=== PATIENT | male | born 1940 | race Caucasian/White ===

== ENCOUNTER 2019-05-30 13:49 | Inpatient (IN) | payer MEDICARE, BC ==
[2019-05-30 15:12] LABS: Bilirubin Negative (Negative); Blood, Urine 1+ (Negative); Calcium Oxalate Crystals 4+ HPF (None Seen); Clarity Turbid (Clear); Glucose, Urine (Dipstick) Normal (Negative); Leukocyte 250 Leu/uL (Negative); Nitrite Negative (Negative); Protein, Urine (Dipstick) 30 mg/dL (Neg-Trace); Squamous Epithelial 0-3 HPF (0-3); Urobilinogen Normal mg/dL (Less than 2)
[2019-05-30 15:13] LABS: #Basophils 0.1 thou/uL (0.0-0.2); #Eosinphils 0.2 thou/uL (0.0-0.7); #Lymphocytes 0.4 thou/uL (1.20-3.40); #Monocytes 0.7 thou/uL (0.11-0.59); #Neutrophils 5.6 thou/uL (1.40-6.50); %Basophils 0.9 % (0.0-1.0); %Eosinophils 2.4 % (0.0-10.0); %Lymphocytes 6.2 % (21.0-51.0); %Monocytes 10.3 % (0.0-10.0); %Neutrophils 80.2 % (42.0-75.0); Hemoglobin 13.4 g/dL (14.0-18.0); Mean Corpuscular HGB CONC 34.4 g/dL (32.0-36.0); Mean Corpuscular Hemoglobin 29.4 pg (27.0-31.0); Mean Corpuscular Volume 85.5 fL (78.0-98.0); Mean Platelet Volume 7.5 fL (7.4-10.4); Platelet Count 214 thou/uL (130-400); RBC Distribution Width 12.5 % (11.5-14.5); Red Blood Cell (RBC) Count 4.55 mill/uL (4.70-6.10)
[2019-05-30 15:23] LABS: Bacteria/HPF None Seen HPF (None Seen); RBC/HPF 0-3 HPF (0-3)
[2019-05-30 15:29] LABS: AST (SGOT) 36 U/L (5-34); Anion Gap 13 mmol/L (10-20); Bilirubin, Total 1.8 mg/dL (0.2-1.2); Carbon Dioxide 33 mmol/L (23-31); Chloride 97 mmol/L (98-107); Protein, Total 7.2 g/dL (5.8-8.1); Sodium 140 mmol/L (136-145)
[2019-05-30 15:39] LABS: ALT (SGPT) 24 U/L (8-55); Albumin 3.7 g/dL (3.4-4.8); Alkaline Phosphatase 64 U/L (40-110); BUN (Urea Nitrogen) 48 mg/dL (8.4-25.7); Calc. Creatinine Clearance 0 mL/min (70-130); Estimated GFR-MDRD 21; Globulin 3.6 g/dL (2.4-3.5); Glucose 92 mg/dL (83-110)
[2019-05-30 15:46] LABS: Calcium 16.8 mg/dL (7.8-10.44); Potassium 2.5 mmol/L (3.5-5.1)
--- NOTE | 2019-05-30 18:00 | ULT ---
Focused ultrasound of the neck: 05/30/2019 COMPARISON: None HISTORY: Bilateral areas of palpable concern within the neck FINDINGS: Within the right aspect of the neck in the area of palpable concern there is an enlarged ly mph node measuring 1.3 x 1.9 cm. Numerous additional enlarged lymph nodes are seen in this region. In addition, in the "right lateral neck area of concern" there is an ill-defined lobulated soft tissu e mass measuring up to approximately 2.0 x 4.3 cm. This may represent confluent lymphadenopathy or a primary tumor. On the left there are numerous enlarged lymph nodes as well, measuring up to 1.2 cm in short axis dimension. IMPRESSION: Findings suspicious for extensive neck lymphadenopathy, right greater than left. This is suspicious for malignancy, which could be related to head and neck cancer or lymphoma. Follow-up neck CT with IV contrast advised for full assessment. CODE T
--- NOTE | 2019-05-30 18:28 | RAD ---
EXAM: Chest one view: HISTORY: Weight loss COMPARISON: None FINDINGS: Heart size: Within normal limits. Lungs: Clear of acute process. No evidence for confluent pneumonia, pleural effusion, acute edema, or pneumothorax, or other signifi cant acute process. IMPRESSION: No significant acute intrathoracic disease. Atherosclerosis of the aorta.
[2019-05-30] MEDS ORDERED: Acetaminophen 325 MG TAB PO PRN ×2 (19:34→20:55)
[2019-05-30] MEDS ORDERED: Sodium Chloride 0.9% 1,000 ML IV SCH (19:34)
[2019-05-30] MEDS ORDERED: hydrALAZINE 20 MG/ML VIAL SLOW IVP PRN (20:55)
[2019-05-30] MEDS: Sodium Chloride 0.9% 1,000 ML IV SCH (21:39)
[2019-05-30] MEDS: Famotidine 20 MG TAB PO SCH (22:00)
[2019-05-30] MEDS: Heparin 5,000 UNITS/ML VIAL SC SCH (22:09)
[2019-05-30] MEDS ORDERED: Potassium Chloride 20 MEQ TAB PO SCH (23:00)
[2019-05-31 00:14] LABS: Anion Gap 11 mmol/L (10-20); Carbon Dioxide 30 mmol/L (23-31); Chloride 102 mmol/L (98-107); Magnesium 1.2 mg/dL (1.6-2.6); Sodium 140 mmol/L (136-145)
[2019-05-31 00:22] LABS: Potassium 2.8 mmol/L (3.5-5.1)
--- NOTE | 2019-05-31 00:32 | HP ---
PRIMARY CARE PHYSICIAN: Stiven Dave MD. CHIEF COMPLAINT: Nodules or lymph nodes on the neck as well as elevated calcium and hypokalemia. HISTORY OF PRESENT ILLNESS: Mr. Boyd is a very pleasant 79-year-old gentleman, who has history of hypertension and hypercholesterolemia. He has noticed over the last few weeks that he has had some lumps in his neck, which seem to be getting progressively worse. He also has had poor appetite and he believes he has lost about 25 pounds. He has had an occasional sore throat and notices some hoarseness. He also feels dizzy upon standing off and on and sometimes his legs get weak. His primary care doctor was planning to send him for a CT scan of the neck and when he had come to have the CT scan done, they ordered lab work and noticed that his potassium was low. His got calcium was elevated at 16.8 and as a result, they recommended he go back to his doctor. He called his physician who told him to come to the ER for evaluation. Other than feeling a bit weak, he has no other complaints. REVIEW OF SYSTEMS: All systems were reviewed and are negative except for that mentioned in the history of present illness. PAST MEDICAL HISTORY: Significant for hypertension, hypercholesterolemia, borderline diabetes mellitus. PAST SURGICAL HISTORY: He has had a cholecystectomy and also surgery on his pancreas. ALLERGIES: NO KNOWN DRUG ALLERGIES. SOCIAL HISTORY: He is a former smoker. Denies any alcohol use. FAMILY HISTORY: Significant for heart disease in his brother. CURRENT MEDICATIONS: He is not sure of the names and doses of his medications. PHYSICAL EXAMINATION: GENERAL: He is alert and oriented. He appears to be in no acute distress. VITAL SIGNS: Blood pressure is 137/67, heart rate 71, respiratory rate of 16, and he is afebrile. HEENT: Pupils are equal, round, and reactive to light. Extraocular muscles are intact. His sclerae anicteric. THROAT: There is no erythema, no exudates. NECK: He has adenopathy in the cervical and submandibular area, which are fairly firm, but there is no fluctuance. LUNGS: Clear to auscultation. There is no wheezing. No rales, no rhonchi. CARDIOVASCULAR: He has a normal S1 and S2. There is no S3 or S4. He does have a grade 2/6 systolic murmur, which is heard over his entire precordium and radiates both to the axilla and to the back. ABDOMEN: Soft. It is nontender and nondistended. Positive for bowel sounds. No rebound, no guarding. EXTREMITIES: There is no clubbing, cyanosis, no edema. NEUROLOGICAL: The exam is nonfocal. He had reflexes, which were 2+ and symmetric in patellar and brachioradialis. SKIN AND INTEGUMENT: No skin changes. No rash. LABORATORY DATA: Sodium is 140, potassium 2.5, chloride is 97, CO2 is 33, BUN of 48, creatinine 2.95, glucose is 92, calcium was 16.8, total bilirubin was 1.8. CBC; the white blood cell count is 7, hemoglobin 13.4, hematocrit is 38.9, and platelet count is 214. Urinalysis the pH is 5, there is 1+ blood, 250 leukocyte esterase and wbcs are 7-10. He had a soft tissue ultrasound showing extensive neck lymphadenopathy. The right more than the left, suspicious for malignancy. ASSESSMENT: This is a 79-year-old gentleman, who presents to the emergency room with hypercalcemia and hypokalemia and what appears to be acute kidney injury. The hypercalcemia is suspicious for malignancy. He will be admitted, started on IV hydration for the elevated calcium and we will repeat the level in the a.m. I suspect that he may require a bisphosphonate in order to correct this calcium. Currently, he is asymptomatic with the exception of fatigue and poor appetite with regard to the hypercalcemia. There is no somnolence, etc. 1. Lymphadenopathy. These are readily palpable and I suspect it should be easy to biopsy. Therefore, we will consult either general surgery or ENT to perform a biopsy to facilitate the diagnosis. 2. Hypokalemia. We will replace the potassium and check a magnesium level as it has not already been checked. We will also for the hypercalcemia check a PTH related peptide and he will be placed on deep venous thrombosis and gastrointestinal prophylaxis. Job ID: [id number]
[2019-05-31] MEDS: Sodium Chloride 0.9% 1,000 ML IV SCH ×3 (01:55→21:33)
[2019-05-31 03:59] LABS: #Eosinphils 0.2 thou/uL (0.0-0.7); #Lymphocytes 0.6 thou/uL (1.20-3.40); #Monocytes 0.6 thou/uL (0.11-0.59); #Neutrophils 4.1 thou/uL (1.40-6.50); %Basophils 0.6 % (0.0-1.0); %Eosinophils 4.3 % (0.0-10.0); %Monocytes 11.3 % (0.0-10.0); %Neutrophils 72.8 % (42.0-75.0); Hemoglobin 12.5 g/dL (14.0-18.0); Mean Corpuscular HGB CONC 35.1 g/dL (32.0-36.0); Mean Corpuscular Hemoglobin 30.1 pg (27.0-31.0); Mean Corpuscular Volume 85.7 fL (78.0-98.0); Mean Platelet Volume 7.9 fL (7.4-10.4); Platelet Count 169 thou/uL (130-400); RBC Distribution Width 12.4 % (11.5-14.5); Red Blood Cell (RBC) Count 4.15 mill/uL (4.70-6.10); White Blood Cell (WBC) Count 5.6 thou/uL (4.8-10.8)
[2019-05-31 04:16] LABS: Anion Gap 12 mmol/L (10-20); BUN (Urea Nitrogen) 42 mg/dL (8.4-25.7); Calc. Creatinine Clearance 29 mL/min (70-130); Carbon Dioxide 25 mmol/L (23-31); Chloride 105 mmol/L (98-107); Estimated GFR-MDRD 26; Glucose 73 mg/dL (83-110); Magnesium 1.5 mg/dL (1.6-2.6); Sodium 139 mmol/L (136-145)
[2019-05-31 04:19] LABS: Calcium 15.2 mg/dL (7.8-10.44); Potassium 2.7 mmol/L (3.5-5.1)
[2019-05-31] MEDS ORDERED: Zoledronic Acid 4 MG in Sodium Chloride 0.9% 100 ML IVPB SCH (08:45)
[2019-05-31] MEDS ORDERED: Potassium Chloride 20 MEQ TAB PO SCH ×2 (09:00→21:00)
--- NOTE | 2019-05-31 10:59 | CON ---
DATE OF CONSULTATION: 05/31/2019 REQUESTING PHYSICIAN: Esau Marshall MD HISTORY OF PRESENT ILLNESS: This is a 79-year-old man, who was admitted with complaint of progressive weakness and 25 pounds weight loss over the last 3 -4 months. He reports some anorexia. The patient denies any dyspnea, chest pain or syncope. He admits to having multiple lumps in his neck, which had become progressively larger over the last few weeks. He denies any change in his bowel habits. PAST MEDICAL HISTORY: Pertinent for hyperlipidemia and type 2 diabetes mellitus. PAST SURGICAL HISTORY: Pertinent for cholecystectomy as well as some surgery to his pancreas, he does not recall specifics. SOCIAL HISTORY: He reports over a 25 pack year cigarette smoking history and currently does not smoke. He denies any ethanol or illicit drug abuse. FAMILY HISTORY: Noncontributory for this patient's age. ALLERGIES: THE PATIENT DENIES ANY KNOWN DRUG ALLERGIES. REVIEW OF SYSTEMS: Ten-point review of systems essentially unremarkable except as stated in past medical history and chief complaint. PHYSICAL EXAMINATION: GENERAL: This reveals a 79-year-old normally developed man, who is otherwise coherent, interactive and appears stated age. The patient is alert and oriented x3, appears to be in no acute distress at the time of my evaluation. VITAL SIGNS: Include blood pressure 152/70, pulse 63, respiratory rate is 18, temperature is 98.7 degrees Fahrenheit, and oxygen saturation is 95% on room air. HEENT: Pupils are equal, round, and reactive to light and accommodation. NECK: He has multiple bilateral palpable cervical lymphadenopathy. Trachea is otherwise midline. He has no tenderness to any of these palpable lymph nodes. He does not have any thyromegaly. HEART: Reveals regular rate and rhythm. No murmurs or gallops auscultated. LUNGS: Clear to auscultation bilaterally. Breathing, regular and nonlabored. ABDOMEN: Soft and obese, but nontender to palpation. Liver and spleen nonpalpable below costal margin. EXTREMITIES: 2+ bilateral radial and pedal pulses, no ankle edema. Bilateral left greater than right inguinal lymphadenopathy. NEUROLOGIC: Reveals no focal deficits present. LABORATORY FINDINGS: Include a CBC with 5600 white blood cells, hemoglobin and hematocrit 12.5 and 35.5 respectively. Platelet count 169,000. Metabolic profile; sodium 139, potassium 2.7, chloride is 105, bicarb is 25, BUN 42, creatinine is 2.44, glucose is 73, total bilirubin is 1.5, serum calcium is elevated at 16.8. PTH is noted at 39.2 mcg per mL. I have personally reviewed the chest x-ray obtained yesterday, which was unremarkable for any acute intrathoracic pathology. Soft tissue ultrasound of the neck was remarkable for bilateral [id number]-left lymphadenopathy. IMPRESSIONS: 1. Extensive cervical lymphadenopathy, likely secondary to malignancy. 2. Acute hypocalcemia likely secondary to malignancy. 3. Acute hypokalemia. 4. Probable stage 3 kidney disease. RECOMMENDATION: Excisional left inguinal lymph node biopsy Above findings and plan discussed with the patient who indicates understanding of the information given. Thank you again, Dr. Marshall for allowing me the opportunity to participate in the care of this patient. Job ID: [id number] MTDD
[2019-05-31] MEDS ORDERED: Zoledronic Acid 3 MG in Sodium Chloride 0.9% 100 ML IVPB SCH (11:00)
--- NOTE | 2019-05-31 11:28 | PDOC.HOSPP ---
- Subjective Encounter Date: 05/31/19 Encounter Time: 11:27 Subjective: Mr. Boyd was seen today in follow-up of hypercalemia and hypokalemia. He does not have any complaints today. He denies feeling weak. - Objective Vital Signs & Weight: Vital Signs (12 hours) Temp Pulse Resp BP Pulse Ox 05/31/19 08:25 95 05/31/19 08:18 98.7 F 63 18 152/70 H 95 05/31/19 03:00 98.4 F 70 16 145/67 H 95 05/30/19 23:45 97.8 F 73 18 152/68 H 93 L Weight Weight 181 lb I&O: 05/30/19 05/31/19 06/01/19 06:59 06:59 06:59 Intake Total 2040 Output Total 950 Balance 1090 Result Diagrams: 05/31/19 03:21 05/31/19 03:21 Additional Labs: Accuchecks 05/31/19 05/30/19 05:27 21:42 POC Glucose 76 89 Hospitalist ROS - Medication Medications: Active Medications Generic Name Dose Route Start Last Admin Trade Name Freq PRN Reason Stop Dose Admin Heparin Sodium (Porcine) 5,000 units 05/30/19 21:00 05/30/19 22:09 Heparin SC 5,000 units TID DANE Administration Sodium Chloride 1,000 mls @ 150 mls/hr 05/30/19 21:00 05/31/19 01:55 Normal Saline 0.9% IV 1,000 mls .Q6H40M DANE Administration - Exam Eye: PERRL Heart: RRR, no murmur, no gallops, no rubs, normal peripheral pulses Respiratory: CTAB, no wheezes, no rales, no ronchi, normal chest expansion Gastrointestinal: soft, non-tender, non-distended, normal bowel sounds Extremities: no cyanosis, no edema Hosp A/P (1) Hypercalcemia Code(s): E83.52 - HYPERCALCEMIA Status: Acute (2) Hypokalemia Code(s): E87.6 - HYPOKALEMIA Status: Acute (3) Acute kidney injury Code(s): N17.9 - ACUTE KIDNEY FAILURE, UNSPECIFIED Status: Acute (4) Hypomagnesemia Code(s): E83.42 - HYPOMAGNESEMIA Status: Acute (5) Lymphadenopathy Code(s): R59.1 - GENERALIZED ENLARGED LYMPH NODES Status: Acute - Plan * Lymphadenopathy- Consult has been placed for an excisional biopsy * Hypercalcemia- will continue IV hydration, and will give a dose of Zoledronate * Hypokalemia- continue to replace * Hypomagnesemia- continue to replace * Acute kidney injury-this has not improved much after hydration- will check a renal ultrasound, and check urine electrolyes and creatinine, and consult Nephrology *
[2019-05-31] MEDS: Magnesium Oxide 400 MG TAB PO SCH ×2 (11:47→21:31)
--- NOTE | 2019-05-31 12:06 | CON ---
DATE OF CONSULTATION: REASON FOR CONSULTATION: Lymphadenopathy. HISTORY OF PRESENT ILLNESS: Mr. Boyd is a pleasant 79-year-old gentleman, who over the last 3 to 4 weeks, has noticed lumps in his neck. He has lost 25 pounds secondary to poor appetite. He has had occasional sore throat, but no dysphagia. He followed up with Dr. Dave, his primary care and a CT scan was ordered. Routine lab prior to the scan showed a calcium of 16.8. He was sent to the emergency room for treatment and further workup. The patient was started on IV fluids. A dose of zoledronic acid has been ordered. The patient states he has occasional night sweats. No itching. On exam, he has a large firm axillary lymph nodes, he states those have been present for at least 6 months. PAST MEDICAL HISTORY: 1. Hypertension. 2. Hyperlipidemia. 3. Diabetes mellitus, type 2. PAST SURGICAL HISTORY: Cholecystectomy. ALLERGIES: NO KNOWN DRUG ALLERGIES. HOME MEDICATIONS: None. FAMILY HISTORY: Father had heart disease. Mother had liver cancer. SOCIAL HISTORY: Single. One child. Lives near his son and brother. Remote history of smoking. No alcohol or illicit drug use. REVIEW OF SYSTEMS: CONSTITUTIONAL: Denies fever, but positive for chills and night sweats. EYES: No blurred or double vision. ENT: No pain or dysphagia. Positive for sore throat and hoarseness. NECK: Positive for lumps. CV: No chest pain, palpitations, or syncope. RESPIRATORY: No shortness of breath, dyspnea on exertion, orthopnea. GI: No nausea, vomiting, diarrhea, constipation, or abdominal pain. : No dysuria or hematuria. MUSCULOSKELETAL: No joint or back pain. SKIN: Denies any rash or pruritus. HEMATOLOGIC: Denies bleeding, bruising, or clotting. NEUROLOGIC: Positive for weakness. No headache, numbness, tingling, or seizure activity. PSYCHIATRIC: No anxiety or depression. PHYSICAL EXAMINATION: VITAL SIGNS: Temperature is 98.7, pulse is 63, respiratory rate is 18, blood pressure is 152/70. He is 95% on room air. GENERAL: This is a well-developed, well-nourished male, in no acute distress. HEENT: Normocephalic, atraumatic. Pupils are equal and reactive to light. He has poor dentition. NECK: He has palpable cervical and submandibular lymph nodes. CV: Regular rate and rhythm. LUNGS: Clear. ABDOMEN: Soft and nontender. Bowel sounds are positive. EXTREMITIES: There is no clubbing or cyanosis. SKIN: No rash. LYMPH: He has bulky lymphadenopathy in bilateral axillae. He has soft inguinal lymph node lymphadenopathy bilaterally. NEUROLOGIC: Nonfocal. PERTINENT LABORATORY AND DIAGNOSTIC DATA: Current WBCs are 5.6, hemoglobin 12.5 , hematocrit 35.5, platelet count is 169,000, he has 72% neutrophils, 11% lymphocytes. Sodium is 139, potassium is 2.7, chloride is 105, CO2 is 25, BUN is 42, creatinine is 2.44, current calcium is 15.2, magnesium is 1.5, bilirubin is 1.8, AST is 36 , ALT is 24, and alkaline phosphatase is 64. Serum total protein is 7.2, albumin 3.7, globulin 3.6. PTH is 39.2. Urine is positive for protein, trace blood and ketones and leukocyte esterase. ASSESSMENT: 1. Bulky lymphadenopathy in neck, axilla, and inguinal region, worrisome for lymphoma. 2. Hypercalcemia, likely secondary to malignancy. DISCUSSION: The patient has been started on IV fluids with slight improvement in his calcium. He will be given a dose of zoledronic acid and started on calcitonin. He likely has a lymphoma as he has bulky lymphadenopathy and B symptoms, we would recommend an excisional lymph node biopsy. Dr. Jasso has been consulted, and I have discussed this with him. We will check LDH, uric acid, and flow cytometry on peripheral blood. Based on these results, he may need a bone marrow biopsy. He also needs CT scan of chest, abdomen, pelvis with IV contrast. Hopefully, his kidney function will improve. He will have a bulky disease on both sides of the diaphragm and will likely need treatment with allopurinol or rasburicase prior to initiation of chemo. This has been briefly discussed with the patient, and I will return to discuss with the son and brother possibly tomorrow. Thank you for the consult. Job ID: [id number] [facility]
[2019-05-31 13:08] LABS: Anion Gap 12 mmol/L (10-20); BUN (Urea Nitrogen) 40 mg/dL (8.4-25.7); Calc. Creatinine Clearance 31 mL/min (70-130); Carbon Dioxide 28 mmol/L (23-31); Chloride 106 mmol/L (98-107); Estimated GFR-MDRD 28; Glucose 75 mg/dL (83-110); Sodium 143 mmol/L (136-145)
[2019-05-31 13:11] LABS: Calcium 14.8 mg/dL (7.8-10.44); Potassium 2.7 mmol/L (3.5-5.1)
[2019-05-31 14:06] LABS: Creatinine, Urine 57.68 mg/dL (63-166)
[2019-05-31] MEDS: Calcitonin,Salmon,Synthetic 200 UNITS/ML SC SCH (14:09)
[2019-05-31] MEDS: Famotidine 20 MG TAB PO SCH (14:12)
[2019-05-31] MEDS: Heparin 5,000 UNITS/ML VIAL SC SCH ×3 (14:13→21:34)
[2019-05-31 14:51] LABS: Reference Lab Name LABCORP
[2019-05-31 19:16] LABS: Anion Gap 13 mmol/L (10-20); BUN (Urea Nitrogen) 37 mg/dL (8.4-25.7); Calc. Creatinine Clearance 33 mL/min (70-130); Carbon Dioxide 24 mmol/L (23-31); Chloride 107 mmol/L (98-107); Estimated GFR-MDRD 29; Glucose 112 mg/dL (83-110); Sodium 141 mmol/L (136-145)
[2019-05-31 19:19] LABS: Calcium 14.7 mg/dL (7.8-10.44); Potassium 2.7 mmol/L (3.5-5.1)
--- NOTE | 2019-05-31 19:31 | CON ---
DATE OF CONSULTATION: REASON FOR CONSULTATION: Acute kidney injury. HISTORY OF PRESENT ILLNESS: A very pleasant 79-year-old gentleman, presented to the hospital yesterday for hypercalcemia and possible lymphoma. The patient also had severe hypokalemia. The patient has been hydrated and was started on zoledronate for hypercalcemia. The patient denies any nausea, vomiting, or chest pain. PAST MEDICAL HISTORY: Significant for hypertension, hyperlipidemia, diabetes mellitus, history of cholecystectomy, and pancreas. ALLERGIES: REVIEWED. MEDICATIONS: Home medications list, reviewed. Hospital medications list, reviewed. SOCIAL HISTORY: No smoking, alcohol, or drug use. FAMILY HISTORY: Negative for ESRD. REVIEW OF SYSTEMS: A 15-point review of systems was performed and was negative except for positives noted above. GENERAL: HEAD: NECK: No swelling or lumps. NOSE: No epistaxis or discharge. EYES: No diplopia or pain. RESPIRATORY: CARDIOVASCULAR: GASTROINTESTINAL: /WATERSHED TENDER: MUSCULOSKELETAL: No joint pain. NEUROPSYCHIATIC SYSTEMS: No suicidal ideation. No ideation. SKIN: Denies any rash or ulcer. CONSTITUTIONAL: No fever or chills. PHYSICAL EXAMINATION: GENERAL: The patient is awake and alert. VITAL SIGNS: Afebrile, pulse 74, breathing 16, blood pressure 145/67. GENERAL APPEARANCE AND MENTAL STATUS: Fair. HEAD/NECK: Normocephalic. Atraumatic. EYES: EOMI. No deformity. EARS: Clear. No ulcers. NOSE: Intact. No lesions. MOUTH: Clear. No discharge. THROAT: Clear. No exudate. LUNGS: Clear. No crackles. CARDIAC: S1, S2. No rub. ABDOMEN: Benign. Bowel sounds positive. GENITALIA/RECTUM: Ram absent. BACK/EXTREMITIES: Edema 0+. NEUROLOGICAL: Alert and motor intact. SKIN: LYMPHATICS: LABORATORY DATA: Reviewed. ASSESSMENT AND PLAN: 1. Acute kidney injury with chronic kidney disease, most likely because of hypercalcemia and hypokalemia. Recommend aggressive potassium replacement and check potassium every 4 hours. 2. Hypercalcemia, slightly improved. 3. Hyperuricemia. Recommend starting allopurinol. 4. Hyperparathyroidism. Recommend starting Sensipar. 5. Hypomagnesemia. Recommend aggressive magnesium replacement. Job ID: [id number]
[2019-05-31 19:40] LABS: Phosphorus 1.8 mg/dL (2.3-4.7)
[2019-05-31] MEDS ORDERED: Magnesium 2 GM/50 ML 2 GM in Premix Bag 1 BAG IVPB SCH (21:00)
[2019-06-01] MEDS: Calcitonin,Salmon,Synthetic 200 UNITS/ML SC SCH ×4 (01:08→21:04)
[2019-06-01] MEDS: Sodium Chloride 0.9% 1,000 ML IV SCH ×2 (03:25→19:46)
[2019-06-01 04:46] LABS: #Eosinphils 0.2 thou/uL (0.0-0.7); #Lymphocytes 0.3 thou/uL (1.20-3.40); #Monocytes 0.6 thou/uL (0.11-0.59); #Neutrophils 4.9 thou/uL (1.40-6.50); %Basophils 0.6 % (0.0-1.0); %Eosinophils 3.7 % (0.0-10.0); %Lymphocytes 5.5 % (21.0-51.0); %Monocytes 9.3 % (0.0-10.0); %Neutrophils 80.9 % (42.0-75.0); Hemoglobin 11.3 g/dL (14.0-18.0); Mean Corpuscular HGB CONC 34.3 g/dL (32.0-36.0); Mean Corpuscular Hemoglobin 29.3 pg (27.0-31.0); Mean Corpuscular Volume 85.4 fL (78.0-98.0); Mean Platelet Volume 7.5 fL (7.4-10.4); Platelet Count 159 thou/uL (130-400); RBC Distribution Width 12.4 % (11.5-14.5); Red Blood Cell (RBC) Count 3.84 mill/uL (4.70-6.10)
[2019-06-01 05:06] LABS: Anion Gap 9 mmol/L (10-20); BUN (Urea Nitrogen) 34 mg/dL (8.4-25.7); Calc. Creatinine Clearance 34 mL/min (70-130); Carbon Dioxide 30 mmol/L (23-31); Chloride 108 mmol/L (98-107); Estimated GFR-MDRD 30; Glucose 100 mg/dL (83-110); Magnesium 1.7 mg/dL (1.6-2.6); Sodium 144 mmol/L (136-145)
[2019-06-01 05:17] LABS: Potassium 2.5 mmol/L (3.5-5.1)
[2019-06-01] MEDS ORDERED: Potassium Chloride 20 MEQ TAB PO SCH (05:45)
--- NOTE | 2019-06-01 10:19 | PDOC.HOSPP ---
- Subjective Encounter Date: 06/01/19 Encounter Time: 10:18 Subjective: Mr. Boyd was seen today in follow-up of hypercalcemia, and lymphadenopathy. He says he feels fine today. No new complaints. - Objective Vital Signs & Weight: Vital Signs (12 hours) Temp Pulse Resp BP Pulse Ox 06/01/19 07:58 97.8 F 94 18 139/76 95 06/01/19 05:43 96 06/01/19 03:31 98.4 F 68 18 171/81 H 96 05/31/19 23:25 97.8 F 66 18 122/73 97 Weight Admit Weight 179 lb 3.2 oz Weight 179 lb I&O: 05/31/19 06/01/19 06/02/19 06:59 06:59 06:59 Intake Total 2040 3880 Output Total 950 1060 Balance 1090 2820 Result Diagrams: 06/01/19 03:52 06/01/19 03:52 Hospitalist ROS - Medication Medications: Active Medications Generic Name Dose Route Start Last Admin Trade Name Sunilq PRN Reason Stop Dose Admin Calcitonin [place] 100 units 05/31/19 13:00 06/01/19 01:08 [place] SC 06/03/19 01:01 100 unit 0100,1300 DANE Administration Heparin Sodium (Porcine) 5,000 units 05/30/19 21:00 05/31/19 21:34 Heparin SC 5,000 units TID DANE Administration Sodium Chloride 1,000 mls @ 150 mls/hr 05/30/19 21:00 06/01/19 03:25 Normal Saline 0.9% IV 1,000 mls .Q6H40M DANE Administration Magnesium Oxide 400 mg 05/31/19 09:00 05/31/19 21:31 Magnesium Oxide PO 400 mg BID DANE Administration - Exam Eye: PERRL Respiratory: CTAB, no wheezes, no rales, no ronchi, normal chest expansion, no tachypnea, normal percussion Gastrointestinal: soft, non-tender, non-distended, normal bowel sounds, no palpable masses, no hepatomegaly Extremities: no cyanosis, no edema Musculoskeletal: no muscle wasting (+ submandibular, axiallary and ingunal adenopathy) Psychiatric: normal affect, A&O x 3 Hosp A/P (1) Hypercalcemia Code(s): E83.52 - HYPERCALCEMIA Status: Acute (2) Hypokalemia Code(s): E87.6 - HYPOKALEMIA Status: Acute (3) Acute kidney injury Code(s): N17.9 - ACUTE KIDNEY FAILURE, UNSPECIFIED Status: Acute (4) Hypomagnesemia Code(s): E83.42 - HYPOMAGNESEMIA Status: Acute (5) Lymphadenopathy Code(s): R59.1 - GENERALIZED ENLARGED LYMPH NODES Status: Acute (6) Hyperparathyroidism Code(s): E21.3 - HYPERPARATHYROIDISM, UNSPECIFIED Status: Acute - Plan * Lymphadenopathy- concern is for lymphoma- he will go for sxcisional biopsy today * Hypercalcemia from hyperparathyroidism, and probable malignancy-improving- will continue Calcitonin, and IV hydration- PTHrP pending * Hypokalemia- continue to replace * Hypomagnesemia- continue to replace * Acute kidney injury-slight improvement- Nephrology input appreciated - continue to correct electrolytes, and hydration * HTN- blood pressure is stable- continue PRN hydralazine
[2019-06-01] MEDS: Potassium Chloride 20 MEQ TAB PO SCH ×3 (11:04→20:41)
[2019-06-01] MEDS: Famotidine 20 MG TAB PO SCH (11:04)
[2019-06-01] MEDS: Heparin 5,000 UNITS/ML VIAL SC SCH ×3 (11:05→20:41)
[2019-06-01] MEDS: Magnesium Oxide 400 MG TAB PO SCH ×2 (11:05→20:41)
[2019-06-01] MEDS ORDERED: Lidocaine 1% PF 5 ML VIAL ONE (11:06)
[2019-06-01] MEDS ORDERED: PROPOFOL 200 MG/20 ML VIAL ONE (11:06)
[2019-06-01] MEDS ORDERED: Dexamethasone 20 MG/5 ML VIAL ONE (11:06)
[2019-06-01] MEDS ORDERED: Ondansetron PF 4 MG/2 ML Vial ONE (11:06)
[2019-06-01 12:01] LABS: Anion Gap 9 mmol/L (10-20); BUN (Urea Nitrogen) 32 mg/dL (8.4-25.7); Calc. Creatinine Clearance 33 mL/min (70-130); Carbon Dioxide 30 mmol/L (23-31); Chloride 110 mmol/L (98-107); Estimated GFR-MDRD 30; Glucose 102 mg/dL (83-110); Sodium 146 mmol/L (136-145)
[2019-06-01 12:03] LABS: Calcium 14.1 mg/dL (7.8-10.44); Phosphorus 1.5 mg/dL (2.3-4.7); Potassium 2.9 mmol/L (3.5-5.1)
[2019-06-01] MEDS ORDERED: Cinacalcet HCl 30 MG TAB PO SCH (12:15)
[2019-06-01] MEDS ORDERED: Allopurinol 100 MG TAB PO SCH (12:15)
--- NOTE | 2019-06-01 13:31 | PRG ---
DATE OF SERVICE: 06/01/2019 SUBJECTIVE: This 79-year-old gentleman being seen for acute kidney injury. The patient denied nausea, vomiting or chest pain. OBJECTIVE: CONSTITUTIONAL: The patient is awake and alert. VITAL SIGNS: Pulse 94, breathing 16, blood pressure 139/76. GENERAL APPEARANCE AND MENTAL STATUS: Fair. HEAD/NECK: Normocephalic. Atraumatic. EYES: EOMI. No deformity. EARS: Clear. No ulcers. NOSE: Intact. No lesions. MOUTH: Clear. No discharge. THROAT: Clear. No exudate. LUNGS: Clear. No crackles. CARDIAC: S1, S2. No rub. ABDOMEN: Benign. Bowel sounds positive. GENITALIA/RECTUM: Ram absent. BACK/EXTREMITIES: Edema 0+. NEUROLOGICAL: Alert and motor intact. SKIN: LYMPHATICS: LABORATORY DATA: Labs show potassium 2.5, creatinine 2.1, calcium is 14, phosphorous is 1.8, magnesium 1.7. ASSESSMENT AND RECOMMENDATIONS: 1. Acute kidney injury with chronic kidney injury due to hypercalcemia and lymphoma. Continue aggressive hydration. 2. Hypokalemia. I would recommend central line with aggressive potassium replacement. Checking potassium every 4-6 hours. 3. Hypercalcemia, would recommend Sensipar. If the calcium does not improve, would recommend dialysis catheter placement and hemodialysis with the low calcium diet. 4. Hypophosphatemia. Would recommend aggressive phosphorus replacement. 5. Hypomagnesemia, resolved. Overall prognosis is poor. The above findings were discussed with the patient and his who was present during the interview and also with the Primary Team. Job ID: [id number]
[2019-06-01] MEDS ORDERED: Bupivacaine 0.25% HCL 30 ML VIAL ONE (16:36)
[2019-06-01] MEDS ORDERED: Lidocaine 1% w/Epinephrine 1:100K 20 ML VIAL ONE (16:36)
[2019-06-01] MEDS ORDERED: Fentanyl 100 MCG/2 ML VIAL ONE (16:49)
[2019-06-01] MEDS ORDERED: Heparin 10,000 UNITS/1 ML VIAL ONE (16:55)
[2019-06-01] MEDS ORDERED: Ondansetron HCl/PF 4 MG/2 ML Vial IVP PRN (17:16)
[2019-06-01] MEDS ORDERED: Promethazine HCl 25 MG/ML VIAL IM PRN (17:16)
[2019-06-01] MEDS ORDERED: Morphine Sulfate 2 MG/ML SYRINGE SLOW IVP PRN (17:16)
[2019-06-01] MEDS ORDERED: PACU-Morphine 4MG/ML VIAL SLOW IVP PRN (17:16)
[2019-06-01] MEDS ORDERED: HYDROmorphone 2 MG/ML VIAL SLOW IVP PRN (17:16)
[2019-06-01] MEDS ORDERED: Promethazine HCl 25 MG/ML VIAL SLOW IVP PRN (17:16)
[2019-06-01] MEDS ORDERED: PHOS-NAK 1 PKT PACK PO SCH (17:30)
[2019-06-01] MEDS ORDERED: Magnesium Sulfate 2 GM in Sodium Chloride 0.9% 100 ML IVPB SCH (17:45)
[2019-06-01] MEDS ORDERED: traMADol HCl 50 MG TAB PO PRN (17:47)
[2019-06-01] MEDS ORDERED: HYDROcodone/Acetaminophen 7.5/325 mg Tablet PO PRN (17:47)
[2019-06-01 21:43] LABS: Anion Gap 13 mmol/L (10-20); BUN (Urea Nitrogen) 31 mg/dL (8.4-25.7); Calc. Creatinine Clearance 30 mL/min (70-130); Carbon Dioxide 22 mmol/L (23-31); Chloride 112 mmol/L (98-107); Estimated GFR-MDRD 27; Glucose 146 mg/dL (83-110); Potassium 3.7 mmol/L (3.5-5.1); Sodium 143 mmol/L (136-145)
[2019-06-01 21:56] LABS: Calcium 12.7 mg/dL (7.8-10.44)
--- NOTE | 2019-06-02 00:08 | OP ---
DATE OF PROCEDURE: 06/01/2019 PREOPERATIVE DIAGNOSES: Diffuse lymphadenopathy, malignant hypercalcemia. POSTOPERATIVE DIAGNOSES: Diffuse lymphadenopathy, malignant hypercalcemia. PROCEDURES PERFORMED: 1. Left groin incisional biopsy of lymph nodes. 2. Right femoral Trialysis dialysis catheter. ANESTHESIA: General. ESTIMATED BLOOD LOSS: Minimal. COMPLICATIONS: None. SPECIMEN: Portion of large left groin node sent to Path for final diagnosis. It was sent fresh for lymph node protocol. DESCRIPTION OF PROCEDURE: The patient was taken to the operating room and laid supine on the operating room table. After general anesthetic was obtained, bilateral groins were shaved, prepped, and draped in a sterile fashion. An oblique incision was made above the lymphadenopathy in the left groin. Maryana fascia was opened to expose the groin. There was a large lymph node. It was locally invasive and so a portion of this lymph node was removed and sent to Path for final diagnosis. there was no ongoing bleeding. The wound was irrigated. Local anesthetic was applied and the wound was closed using 3-0 Vicryl, and 4-0 Monocryl, and Dermabond. Next, the right femoral vein was cannulated using a Seldinger needle and a wire was passed without any tension. A small gamal was made at the wire entrance site. The wire was used as a guide to dilate the femoral vein. The Trialysis catheter was threaded to its fullest extent. Both ports flushed and drawn blood without difficulty. Each was flushed with saline followed by 10,000 units of heparin per mL was left in each lumen. The catheter was sutured to the groin skin using nylon. Sterile dressings were applied. The patient was sent to Recovery in stable condition. Job ID: [id number]
[2019-06-02] MEDS: Sodium Chloride 0.9% 1,000 ML IV SCH ×2 (01:14→11:40)
[2019-06-02 04:44] LABS: #Lymphocytes 0.2 thou/uL (1.20-3.40); #Monocytes 0.3 thou/uL (0.11-0.59); #Neutrophils 6.4 thou/uL (1.40-6.50); %Basophils 0.4 % (0.0-1.0); %Eosinophils 0.2 % (0.0-10.0); %Lymphocytes 2.7 % (21.0-51.0); %Monocytes 4.7 % (0.0-10.0); Hemoglobin 10.5 g/dL (14.0-18.0); Mean Corpuscular HGB CONC 33.9 g/dL (32.0-36.0); Mean Corpuscular Hemoglobin 29.4 pg (27.0-31.0); Mean Corpuscular Volume 86.7 fL (78.0-98.0); Mean Platelet Volume 7.4 fL (7.4-10.4); Platelet Count 138 thou/uL (130-400); RBC Distribution Width 12.8 % (11.5-14.5); Red Blood Cell (RBC) Count 3.57 mill/uL (4.70-6.10)
[2019-06-02 04:58] LABS: Anion Gap 7 mmol/L (10-20); BUN (Urea Nitrogen) 30 mg/dL (8.4-25.7); Calc. Creatinine Clearance 36 mL/min (70-130); Carbon Dioxide 28 mmol/L (23-31); Chloride 112 mmol/L (98-107); Estimated GFR-MDRD 33; Glucose 141 mg/dL (83-110); Magnesium 1.5 mg/dL (1.6-2.6); Potassium 3.4 mmol/L (3.5-5.1); Sodium 144 mmol/L (136-145)
[2019-06-02 05:11] LABS: Calcium 12.2 mg/dL (7.8-10.44)
[2019-06-02] MEDS: Magnesium Oxide 400 MG TAB PO SCH ×2 (08:26→20:35)
[2019-06-02] MEDS: Cinacalcet HCl 30 MG TAB PO SCH (08:26)
[2019-06-02] MEDS: Potassium Chloride 20 MEQ TAB PO SCH (08:26)
[2019-06-02] MEDS: Allopurinol 100 MG TAB PO SCH (08:26)
[2019-06-02] MEDS: Heparin 5,000 UNITS/ML VIAL SC SCH ×3 (08:26→20:35)
[2019-06-02] MEDS: Famotidine 20 MG TAB PO SCH (08:27)
[2019-06-02] MEDS: Calcitonin,Salmon,Synthetic 200 UNITS/ML SC SCH ×2 (11:37→20:26)
--- NOTE | 2019-06-02 11:51 | PDOC.MOPN ---
Interval History: he thinks he is thinking a little more clearly but still confused at times, no pain. he does not remember having a biopsy yesterday - Vital Signs Vital Signs: Vital Signs (12 hours) Temp Pulse Resp BP Pulse Ox 06/02/19 07:39 97.8 F 63 18 134/68 95 06/02/19 04:00 97.8 F 69 18 158/72 H 97 06/02/19 00:00 97.5 F L 77 18 119/60 99 Weight Admit Weight 179 lb 3.2 oz Weight 180 lb - Physical Exam General: Alert, Other (diffuse LAD in neck, bacilio ax, and bi linguinal) HEENT: Atraumatic Lungs: Clear to auscultation Cardiovascular: Regular rate Abdomen: Normal bowel sounds Extremities: No clubbing Skin: No rashes - Labs Result Diagrams: 06/02/19 03:29 06/02/19 03:29 Lab results: Laboratory Results - last 24 hr 06/02/19 03:29: WBC 7.0, RBC 3.57 L, Hgb 10.5 L, Hct 31.0 L, MCV 86.7, MCH 29.4 , MCHC 33.9, RDW 12.8, Plt Count 138, MPV 7.4, Neutrophils % 92.0 H, Lymphocytes % 2.7 L, Monocytes % 4.7, Eosinophils % 0.2, Basophils % 0.4, Neutrophils # 6.4, Lymphocytes # 0.2 L, Monocytes # 0.3, Eosinophils # 0.0, Basophils # 0.0 06/02/19 03:29: Sodium 144, Potassium 3.4 L, Chloride 112 H, Carbon Dioxide 28, Anion Gap 7 L, BUN 30 H, Creatinine 1.99 H, Estimated GFR (MDRD) 33, Glucose 141 H, Calcium 12.2 H*, Magnesium 1.5 L 06/01/19 21:14: Sodium 143, Potassium 3.7, Chloride 112 H, Carbon Dioxide 22 L, Anion Gap 13, BUN 31 H, Creatinine 2.34 H, Estimated GFR (MDRD) 27, Glucose 146 H, Calcium 12.7 H* 06/01/19 11:24: Phosphorus 1.5 L 06/01/19 11:24: Sodium 146 H, Potassium 2.9 L*, Chloride 110 H, Carbon Dioxide 30, Anion Gap 9 L, BUN 32 H, Creatinine 2.13 H, Estimated GFR (MDRD) 30, Glucose 102, Calcium 14.1 H* Status: lab reviewed by me - Pathology Pathology: LN path pending A/P - Problem (1) Acute kidney injury Current Visit: Yes Code(s): N17.9 - ACUTE KIDNEY FAILURE, UNSPECIFIED Status : Acute (2) Hypercalcemia Current Visit: Yes Code(s): E83.52 - HYPERCALCEMIA Status: Acute (3) Lymphadenopathy Current Visit: Yes Code(s): R59.1 - GENERALIZED ENLARGED LYMPH NODES Status : Acute - Plan Plan: 1. start prednisone today 2. add PPI 3. f/u on path results 4. transfer to onc for treatment next week 5. f/u when path is back
[2019-06-02 12:11] LABS: Anion Gap 10 mmol/L (10-20); BUN (Urea Nitrogen) 31 mg/dL (8.4-25.7); Calc. Creatinine Clearance 35 mL/min (70-130); Carbon Dioxide 27 mmol/L (23-31); Chloride 111 mmol/L (98-107); Estimated GFR-MDRD 31; Glucose 101 mg/dL (83-110); Potassium 3.5 mmol/L (3.5-5.1); Sodium 144 mmol/L (136-145)
[2019-06-02 12:23] LABS: Magnesium 1.6 mg/dL (1.6-2.6); Uric Acid 10.1 mg/dL (3.5-7.2)
[2019-06-02 12:27] LABS: Phosphorus 1.4 mg/dL (2.3-4.7)
[2019-06-02] MEDS ORDERED: Magnesium Sulfate 1 GM/2 ML VIAL IM SCH (13:00)
[2019-06-02] MEDS ORDERED: predniSONE 50 MG TAB PO SCH (13:15)
--- NOTE | 2019-06-02 13:43 | PRG ---
DATE OF SERVICE: 06/02/2019 SUBJECTIVE: A 79-year-old gentleman, being seen for acute kidney injury. The patient denied any nausea, vomiting, or chest pain. OBJECTIVE: CONSTITUTIONAL: The patient is awake and alert. VITAL SIGNS: Pulse 68, breathing 16, blood pressure 134/68. GENERAL APPEARANCE AND MENTAL STATUS: Fair. HEAD/NECK: Normocephalic. Atraumatic. EYES: EOMI. No deformity. EARS: Clear. No ulcers. NOSE: Intact. No lesions. MOUTH: Clear. No discharge. THROAT: Clear. No exudate. LUNGS: Clear. No crackles. CARDIAC: S1, S2. No rub. ABDOMEN: Benign. Bowel sounds positive. GENITALIA/RECTUM: Ram absent. BACK/EXTREMITIES: Edema 0+. NEUROLOGICAL: Alert and motor intact. SKIN: LYMPHATICS: LABORATORY DATA: Labs show hemoglobin 10.5. Potassium 3.5, creatinine 2.0. Uric acid 10.1, phosphorus 1.4, magnesium 1.6. ASSESSMENT AND RECOMMENDATIONS: 1. Acute kidney disease. 2. Chronic kidney disease, stage 3, stable. 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 3. Hypercalcemia, improved. 4. Anemia, stable. 5. Hypophosphatemia. Recommend high phosphorus diet. 6. Hyperuricemia. Continue allopurinol. No indication for dialysis today. Job ID: [id number]
[2019-06-02] MEDS ORDERED: Magnesium 5 GM/10 ML Abboject SYRINGE FS SCH (13:45)
[2019-06-02] MEDS ORDERED: PHOS-NAK 1 PKT PACK PO SCH (15:45)
[2019-06-02 16:08] LABS: Phosphorus 1.1 mg/dL (2.3-4.7)
--- NOTE | 2019-06-02 20:08 | PDOC.HOSPP ---
- Subjective Encounter Date: 06/02/19 Encounter Time: 14:00 Subjective: CC: f/u poss lymphoma Patient is doing well, biopsy report pending. No fevers, chills, night sweats. Has femoral line in place since they were anticipating dialysis. He has been urinating. Denies headaches, constipation - Objective Vital Signs & Weight: Vital Signs (12 hours) Temp Pulse Resp BP Pulse Ox 06/02/19 15:10 97.8 F 71 12 150/68 H 92 L Weight Admit Weight 179 lb 3.2 oz Weight 180 lb I&O: 06/01/19 06/02/19 06/03/19 06:59 06:59 06:59 Intake Total 3880 3600 3040 Output Total 1060 1620 2080 Balance 2820 1980 960 Result Diagrams: 06/02/19 03:29 06/02/19 11:35 Hospitalist ROS - Review of Systems Constitutional: denies: fever, chills, sweats - Medication Medications: Active Medications Generic Name Dose Route Start Last Admin Trade Name Davi PRN Reason Stop Dose Admin Allopurinol 200 mg 06/02/19 09:00 06/02/19 08:26 Zyloprim PO 200 mg DAILY DANE Administration Calcitonin [place] 100 units 06/01/19 20:00 06/02/19 11:37 [place] SC 06/03/19 08:01 100 unit 0800,2000 DANE Administration Cinacalcet 30 mg 06/02/19 08:00 06/02/19 08:26 Sensipar PO 30 mg QAM-WM DANE Administration Famotidine 20 mg 06/01/19 09:00 06/02/19 08:27 Pepcid PO 20 mg DAILY DANE Administration Heparin Sodium (Porcine) 5,000 units 05/30/19 21:00 06/02/19 15:14 Heparin SC 5,000 units TID DANE Administration Sodium Chloride 1,000 mls @ 150 mls/hr 05/30/19 21:00 06/02/19 11:40 Normal Saline 0.9% IV Not Given .Q6H40M DANE Magnesium Oxide 400 mg 05/31/19 09:00 06/02/19 08:26 Magnesium Oxide PO 400 mg BID DNAE Administration - Exam General Appearance: NAD, awake alert Eye: PERRL, anicteric sclera ENT: normocephalic atraumatic, no oropharyngeal lesions Neck: supple, symmetric Neck - other findings: lymphadenopathy in neck Heart: RRR, no murmur, no gallops, no rubs Respiratory: CTAB, no wheezes, no rales, no ronchi Gastrointestinal: soft, non-tender, non-distended, normal bowel sounds Extremities: no cyanosis, no clubbing, no edema Skin: normal turgor, no lesions, no rashes Musculoskeletal: normal tone, normal strength, no muscle wasting Musculoskeletal - other findings: femoral line in right leg Psychiatric: normal affect, normal behavior, A&O x 3, oriented to person Hosp A/P - Plan Neck ultrasound: extensive neck lymphadenopathy suspicious for lymphoma. 1.3x 1.9 cm in right aspect. 2.0 x 4.3 cm ill defined lobulated soft tissue mass. This is 79 year old male who presented with hypercalcemia, hypokalemia Lymphadenopathy - s/p biopsy, currently pending . NEck ultrasound showed suspicious lymphadenopathy Hypophosphatemia - phos low, given phos packet but still low. will give IV phos Hypokalemia - potassium 3.4, now up to 3.5 Hyperuricemia - noted to be 10, likely from cancer - continue allopurinol CKD - creatinine 2.0, stable - nephro following Code status: full code DVT prophylaxis: heparin SC
[2019-06-02] MEDS ORDERED: Sodium Phosphate 15 MMOL in Sodium Chloride 0.9% 250 ML 250 ML IVPB SCH (21:00)
[2019-06-03] MEDS: Sodium Chloride 0.9% 1,000 ML IV SCH ×3 (01:36→07:14)
[2019-06-03 06:03] LABS: ALT (SGPT) 12 U/L (8-55); AST (SGOT) 19 U/L (5-34); Albumin 2.9 g/dL (3.4-4.8); Alkaline Phosphatase 54 U/L (40-110); Anion Gap 10 mmol/L (10-20); BUN (Urea Nitrogen) 30 mg/dL (8.4-25.7); Bilirubin, Total 0.6 mg/dL (0.2-1.2); Calc. Creatinine Clearance 38 mL/min (70-130); Calcium 10.7 mg/dL (7.8-10.44); Carbon Dioxide 26 mmol/L (23-31); Chloride 110 mmol/L (98-107); Estimated GFR-MDRD 32; Globulin 2.8 g/dL (2.4-3.5); Glucose 167 mg/dL (83-110); Magnesium 1.6 mg/dL (1.6-2.6); Phosphorus 2.6 mg/dL (2.3-4.7); Potassium 3.4 mmol/L (3.5-5.1); Protein, Total 5.7 g/dL (5.8-8.1); Sodium 143 mmol/L (136-145)
[2019-06-03 06:13] LABS: Band 5 % (5-11); Burr Cells SLIGHT = 2-5 cells (100X) (0-1/hpf); Hemoglobin 10.4 g/dL (14.0-18.0); Lymphocytes 3 % (21-51); MDiff Complete? YES; Mean Corpuscular HGB CONC 33.7 g/dL (32.0-36.0); Mean Corpuscular Hemoglobin 29.6 pg (27.0-31.0); Mean Corpuscular Volume 87.9 fL (78.0-98.0); Mean Platelet Volume 7.9 fL (7.4-10.4); Monocytes 3 % (0-10); Neutrophil 89 % (42-75); Ovalocytes SLIGHT = 2-5 cells (100X) (0-1/hpf); Platelet Count 137 thou/uL (130-400); Platelet Morphology Comment Appears Adequate; RBC Distribution Width 12.9 % (11.5-14.5); Red Blood Cell (RBC) Count 3.52 mill/uL (4.70-6.10); White Blood Cell (WBC) Count 8.8 thou/uL (4.8-10.8)
[2019-06-03] MEDS: Cinacalcet HCl 30 MG TAB PO SCH (08:24)
[2019-06-03] MEDS: Allopurinol 100 MG TAB PO SCH (08:24)
[2019-06-03] MEDS: Magnesium Oxide 400 MG TAB PO SCH ×2 (08:24→19:41)
[2019-06-03] MEDS: Heparin 5,000 UNITS/ML VIAL SC SCH ×3 (08:25→19:41)
[2019-06-03] MEDS: predniSONE 50 MG TAB PO SCH (08:25)
[2019-06-03] MEDS: Famotidine 20 MG TAB PO SCH (08:25)
[2019-06-03] MEDS: Calcitonin,Salmon,Synthetic 200 UNITS/ML SC SCH (08:25)
--- NOTE | 2019-06-03 08:56 | PDOC.MOPN ---
Interval History: he is feeling better, eating better, no pain - Vital Signs Vital Signs: Vital Signs (12 hours) Temp Pulse Resp BP BP Pulse Ox 06/03/19 07:46 97.5 F L 79 16 141/67 H 100 06/03/19 04:00 97.9 F 75 18 121/64 96 Weight Admit Weight 179 lb 3.2 oz Weight 191 lb - Physical Exam General: Alert, Cooperative HEENT: Atraumatic Lungs: Clear to auscultation Cardiovascular: Regular rate Abdomen: Normal bowel sounds Extremities: Other (trace edema throughout, greater in UEs than LEs) Skin: No rashes Neurological: Normal gait - Labs Result Diagrams: 06/03/19 05:00 06/03/19 05:00 Lab results: Laboratory Results - last 24 hr 06/03/19 05:00: WBC 8.8, RBC 3.52 L, Hgb 10.4 L, Hct 30.9 L, MCV 87.9, MCH 29.6 , MCHC 33.7, RDW 12.9, Plt Count 137, MPV 7.9, Neutrophils % (Manual) 89 H, Band Neuts % (Manual) 5, Lymphocytes % (Manual) 3 L, Monocytes % (Manual) 3, Plt Morphology Comment Appears Adequate, Ovalocytes SLIGHT = 2-5 cells, Maddison Cells SLIGHT = 2-5 cells 06/03/19 05:00: Vitamin B12 219 06/03/19 05:00: Folate 3.20 L 06/03/19 05:00: Sodium 143, Potassium 3.4 L, Chloride 110 H, Carbon Dioxide 26, Anion Gap 10, BUN 30 H, Creatinine 2.02 H, Estimated GFR (MDRD) 32, Glucose 167 H, Calcium 10.7 H, Phosphorus 2.6, Magnesium 1.6, Total Bilirubin 0.6, AST 19, ALT 12, Alkaline Phosphatase 54, Serum Total Protein 5.7 L, Albumin 2.9 L, Globulin 2.8, Albumin/Globulin Ratio 1.0 L 06/03/19 05:00: TSH 3rd Generation 0.2313 L 06/02/19 15:35: Phosphorus 1.1 L 06/02/19 11:35: Uric Acid 10.1 H, Phosphorus 1.4 L, Magnesium 1.6 06/02/19 11:35: Sodium 144, Potassium 3.5, Chloride 111 H, Carbon Dioxide 27, Anion Gap 10, BUN 31 H, Creatinine 2.06 H, Estimated GFR (MDRD) 31, Glucose 101 , Calcium 12.0 H A/P - Problem (1) Acute kidney injury Current Visit: Yes Code(s): N17.9 - ACUTE KIDNEY FAILURE, UNSPECIFIED Status : Acute (2) Hypercalcemia Current Visit: Yes Code(s): E83.52 - HYPERCALCEMIA Status: Acute (3) Lymphadenopathy Current Visit: Yes Code(s): R59.1 - GENERALIZED ENLARGED LYMPH NODES Status : Acute - Plan Plan: 1. continue prednisone 100 mg for 5 days 2. transfer to onc 3. hopefully treat next week when path back 4. 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 echo
[2019-06-03] MEDS ORDERED: Polyethylene Glycol 3350 17 GM Packet PO PRN (09:18)
--- NOTE | 2019-06-03 09:25 | PDOC.HOSPP ---
- Subjective Encounter Date: 06/03/19 Encounter Time: 09:23 Subjective: Patient slept well, no fevers, chills or night sweats. No abdominal pain, nausea or vomiting. The patient states he hasn't had a bowel movement in three days. Prior to that he was having intermittent diarrhea which has been chronic since his gallbladder was removed. Patient is noticing his right thumb is getting swollen and he is having difficulty maneuvering it. No erythema or pain or swelling in joints. - Objective Vital Signs & Weight: Vital Signs (12 hours) Temp Pulse Resp BP BP Pulse Ox 06/03/19 07:46 97.5 F L 79 16 141/67 H 100 06/03/19 04:00 97.9 F 75 18 121/64 96 Weight Admit Weight 179 lb 3.2 oz Weight 191 lb I&O: 06/02/19 06/03/19 06/04/19 06:59 06:59 06:59 Intake Total 3600 3640 Output Total 1620 2530 Balance 1980 1110 Result Diagrams: 06/03/19 05:00 06/03/19 05:00 Hospitalist ROS - Review of Systems Eyes: denies: vision change Cardiovascular: denies: chest pain, palpitations, orthopnea Gastrointestinal: denies: nausea, vomiting - Medication Medications: Active Medications Generic Name Dose Route Start Last Admin Trade Name Sunilq PRN Reason Stop Dose Admin Allopurinol 200 mg 06/02/19 09:00 06/03/19 08:24 Zyloprim PO 200 mg DAILY DANE Administration Cinacalcet 30 mg 06/02/19 08:00 06/03/19 08:24 Sensipar PO 30 mg QAM-WM DANE Administration Famotidine 20 mg 06/01/19 09:00 06/03/19 08:25 Pepcid PO 20 mg DAILY DANE Administration Heparin Sodium (Porcine) 5,000 units 05/30/19 21:00 06/03/19 08:25 Heparin SC 5,000 units TID DANE Administration Magnesium Oxide 400 mg 05/31/19 09:00 06/03/19 08:24 Magnesium Oxide PO 400 mg BID DANE Administration Prednisone 100 mg 06/03/19 08:00 06/03/19 08:25 Prednisone PO 100 mg QAM-WM DANE Administration - Exam General Appearance: NAD, awake alert Eye: PERRL, anicteric sclera ENT: normocephalic atraumatic, no oropharyngeal lesions Neck: supple, symmetric, no JVD, no thyromegaly Neck - other findings: lymphadenopathy in neck Heart: RRR, no murmur, no gallops, no rubs Respiratory: CTAB, no wheezes, no rales, no ronchi Gastrointestinal: soft, non-tender, non-distended, normal bowel sounds, no hepatomegaly Extremities: no cyanosis, no clubbing, no edema Skin: normal turgor, no lesions, no rashes Neurological: cranial nerve grossly intact, normal sensation to touch, no focal deficits, no new deficit Musculoskeletal: normal tone, normal strength, no muscle wasting Psychiatric: normal affect, normal behavior, A&O x 3, oriented to place, oriented to time Hosp A/P - Plan Neck ultrasound: extensive neck lymphadenopathy suspicious for lymphoma. 1.3x 1.9 cm in right aspect. 2.0 x 4.3 cm ill defined lobulated soft tissue mass. This is 79 year old male who presented with hypercalcemia, hypokalemia. Had biopsy of lymph node, currently pending Lymphadenopathy - s/p biopsy, currently pending . NEck ultrasound showed suspicious lymphadenopathy - per oncology, may do chemo next week - will transfer to oncology floor Constipation - add miralax prn Hypokalemia - potassium 3.4, supplement today Hypercalcemia - calcium improved to 10 , will continue to monitor - prednisone 100 mg daily for five days per Dr. gloria Hyperuricemia - noted to be 10, likely from cancer - continue allopurinol Hypophosphatemia - resolved CKD - creatinine 2.0, stable, will d/c IV fluids - nephro following Code status: full code IV access: right femoral line, will need alternative IV access prior to removal of line DVT prophylaxis: heparin SC
[2019-06-03] MEDS ORDERED: Folic Acid 1 MG TAB PO SCH (10:30)
[2019-06-03] MEDS ORDERED: Potassium Chloride 20 MEQ TAB PO SCH (10:30)
--- NOTE | 2019-06-03 14:32 | PRG ---
DATE OF SERVICE: 06/03/2019 SUBJECTIVE: A 79-year-old gentleman, being seen for acute kidney injury. The patient denied any nausea, vomiting, or chest pain. OBJECTIVE: CONSTITUTIONAL: The patient is awake and alert. VITAL SIGNS: Afebrile, pulse 72, breathing 16, blood pressure 135/66. GENERAL APPEARANCE AND MENTAL STATUS: Fair. HEAD/NECK: Normocephalic. Atraumatic. EYES: EOMI. No deformity. EARS: Clear. No ulcers. NOSE: Intact. No lesions. MOUTH: Clear. No discharge. THROAT: Clear. No exudate. LUNGS: Clear. No crackles. CARDIAC: S1, S2. No rub. ABDOMEN: Benign. Bowel sounds positive. GENITALIA/RECTUM: Ram absent. BACK/EXTREMITIES: Edema 0+. NEUROLOGICAL: Alert and motor intact. SKIN: LYMPHATICS: LABORATORY DATA: Reviewed. ASSESSMENT AND RECOMMENDATIONS: 1. Chronic kidney disease, stage 3, stable. 2. Acute kidney injury, stable. 3. Hypokalemia, improved. 4. Hypercalcemia, improved. 5. Hypophosphatemia, improved. 6. Hyperuricemia. I would recommend checking uric acid every day. I will sign off please reconsult as needed Thank you Job ID: [id number] MTDD
[2019-06-04 04:48] LABS: Hemoglobin 10.3 g/dL (14.0-18.0); Mean Corpuscular HGB CONC 34.6 g/dL (32.0-36.0); Mean Corpuscular Hemoglobin 30.5 pg (27.0-31.0); Mean Corpuscular Volume 88.3 fL (78.0-98.0); Mean Platelet Volume 8.4 fL (7.4-10.4); Platelet Count 133 thou/uL (130-400); RBC Distribution Width 12.9 % (11.5-14.5); Red Blood Cell (RBC) Count 3.38 mill/uL (4.70-6.10); White Blood Cell (WBC) Count 9.1 thou/uL (4.8-10.8)
[2019-06-04 05:03] LABS: ALT (SGPT) 16 U/L (8-55); AST (SGOT) 20 U/L (5-34); Albumin 2.7 g/dL (3.4-4.8); Alkaline Phosphatase 51 U/L (40-110); Anion Gap 12 mmol/L (10-20); BUN (Urea Nitrogen) 38 mg/dL (8.4-25.7); Bilirubin, Total 0.6 mg/dL (0.2-1.2); Calc. Creatinine Clearance 37 mL/min (70-130); Carbon Dioxide 23 mmol/L (23-31); Chloride 110 mmol/L (98-107); Estimated GFR-MDRD 32; Globulin 2.9 g/dL (2.4-3.5); Glucose 127 mg/dL (83-110); Magnesium 1.6 mg/dL (1.6-2.6); Phosphorus 2.2 mg/dL (2.3-4.7); Potassium 3.7 mmol/L (3.5-5.1); Protein, Total 5.6 g/dL (5.8-8.1); Sodium 141 mmol/L (136-145)
[2019-06-04] MEDS: Heparin 5,000 UNITS/ML VIAL SC SCH ×3 (08:39→20:25)
[2019-06-04] MEDS: Allopurinol 100 MG TAB PO SCH (08:40)
[2019-06-04] MEDS: predniSONE 50 MG TAB PO SCH (08:40)
[2019-06-04] MEDS: Magnesium Oxide 400 MG TAB PO SCH ×2 (08:40→20:25)
[2019-06-04] MEDS: Famotidine 20 MG TAB PO SCH (08:40)
[2019-06-04] MEDS: Cinacalcet HCl 30 MG TAB PO SCH (08:40)
[2019-06-04] MEDS: Folic Acid 1 MG TAB PO SCH (08:41)
[2019-06-04] MEDS ORDERED: PHOS-NAK 1 PKT PACK PO SCH (11:15)
--- NOTE | 2019-06-04 15:31 | PDOC.MOPN ---
Interval History: alert,oriented. Feels good. - Vital Signs Vital Signs: Vital Signs (12 hours) Temp Pulse Resp BP BP Pulse Ox 06/04/19 11:05 97.6 F 70 30 H 127/66 96 06/04/19 07:27 97.6 F 75 23 H 129/63 100 06/04/19 04:00 97.9 F 69 20 124/64 92 L Weight Admit Weight 179 lb 3.2 oz Weight 193 lb 11.2 oz - Physical Exam General: Alert, Oriented x3, No acute distress HEENT: Atraumatic, PERRLA, EOMI, Mucous membr. moist/pink Lungs: Clear to auscultation, Normal air movement Cardiovascular: Regular rate, Normal S1, Normal S2, Gallops, Rubs Abdomen: Normal bowel sounds, Soft, No tenderness, No hepatospenomegaly, No masses Extremities: No clubbing, No cyanosis, No edema, Normal pulses, No tenderness/ swelling Skin: No rashes, No breakdown, No significant lesion Neurological: Normal speech Psych/Mental Status: Mental status NL - Labs Result Diagrams: 06/04/19 03:37 06/04/19 03:36 Lab results: Laboratory Results - last 24 hr 06/04/19 03:37: WBC 9.1, RBC 3.38 L, Hgb 10.3 L, Hct 29.9 L, MCV 88.3, MCH 30.5 , MCHC 34.6, RDW 12.9, Plt Count 133, MPV 8.4 06/04/19 03:36: Sodium 141, Potassium 3.7, Chloride 110 H, Carbon Dioxide 23, Anion Gap 12, BUN 38 H, Creatinine 2.03 H, Estimated GFR (MDRD) 32, Glucose 127 H, Calcium 10.0, Phosphorus 2.2 L, Magnesium 1.6, Total Bilirubin 0.6, AST 20, ALT 16, Alkaline Phosphatase 51, Serum Total Protein 5.6 L, Albumin 2.7 L, Globulin 2.9, Albumin/Globulin Ratio 0.9 L 05/31/19 18:45: 1,25 Dihydroxy Vit D 141.0 H Status: lab reviewed by me A/P - Problem (1) Hypercalcemia Current Visit: Yes Code(s): E83.52 - HYPERCALCEMIA Status: Acute (2) Lymphadenopathy Current Visit: Yes Code(s): R59.1 - GENERALIZED ENLARGED LYMPH NODES Status : Acute - Plan Plan: calcium normal Await path results plan inpatient chemo once path returns transfer to onc floor needs Dr. Marcelino paulson informed.
[2019-06-04 19:09] LABS: Albumin-Ur 22.6 % (.); Alpha 1 - Ur 8.8 % (.); Alpha 2 - Ur 25.6 % (.); Beta-Ur 24.1 % (.); Gamma-Ur 18.8 % (.); M-Spike,% Not Observed % (Not Observed); Protein, Urine 9.2 mg/dL (Not Estab.)
[2019-06-05] MEDS: predniSONE 50 MG TAB PO SCH (06:25)
[2019-06-05] MEDS: Magnesium Oxide 400 MG TAB PO SCH ×2 (06:25→20:51)
[2019-06-05] MEDS: Cinacalcet HCl 30 MG TAB PO SCH (06:26)
[2019-06-05] MEDS: Famotidine 20 MG TAB PO SCH (06:26)
[2019-06-05] MEDS: Allopurinol 100 MG TAB PO SCH (06:26)
[2019-06-05] MEDS: Folic Acid 1 MG TAB PO SCH (06:26)
[2019-06-05] MEDS: Heparin 5,000 UNITS/ML VIAL SC SCH ×3 (09:06→20:51)
[2019-06-05] MEDS ORDERED: Fentanyl 100 MCG/2 ML VIAL ONE (10:57)
[2019-06-05] MEDS ORDERED: Midazolam HCl 2 mg/2 ml Vial ONE (10:57)
[2019-06-05] MEDS ORDERED: Bupivacaine 0.25% HCL 30 ML VIAL ONE (10:58)
[2019-06-05] MEDS ORDERED: Lidocaine 1% w/Epinephrine 1:100K 20 ML VIAL ONE (10:58)
[2019-06-05] MEDS ORDERED: Ondansetron HCl/PF 4 MG/2 ML Vial IVP PRN (12:08)
--- NOTE | 2019-06-05 12:19 | OP ---
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 PROCEDURE PERFORMED: Tunnelled central line with subcutaneous port (MediPort low-profile CT injectable). ANESTHESIA: TIVA, local. ESTIMATED BLOOD LOSS: Minimal. COMPLICATIONS: None. SPECIMEN: None. FINDINGS: Tip of the catheter at the atriocaval junction. DESCRIPTION OF PROCEDURE: The patient was taken to the operating room and laid supine on the operating room table. After sedated was obtained, bilateral neck and chest were shaved, prepped, and draped in a sterile fashion. Local anesthetic infiltrated over the right internal jugular vein. Internal jugular vein was cannulated using a 22-gauge finder needle followed by a Seldinger needle. Wire was passed into superior cava under fluoro guidance. A small gamal was made at the wire entrance site. A separate 3-cm incision was made in the right upper chest. Subcutaneous pocket was made below the lower incision. Tubing for the MediPort tunneled from the inferior to superior incision and suture sheath was placed over the wire into the superior vena cava under fluoro guidance. The dilator and wire were removed. The end of the catheter sewed into the sheath. As the sheath was peeled away, the tip of the catheter was at the atriocaval junction. MediPort tubing cut to fit the MediPort with lower incision, connected to the MediPort, which was sewn to the chest wall in the subcutaneous pocket using Prolene. MediPort flushed and renetta blood without difficulties, it was flushed with a heparin flush. The wounds were irrigated and closed using 3-0 Vicryl, 4-0 Monocryl, and Dermabond. The patient was sent to Recovery in stable condition. All instrument counts, needle counts, and lap counts were correct. Job ID: [id number]
--- NOTE | 2019-06-05 12:31 | RAD ---
Frontal view chest COMPARISON: 05/30/2019 CLINICAL HISTORY: Mediport placement FINDINGS: Right-sided Mediport is in place, with tip overlying the cavoatrial junction. Bilateral int erstitial prominence of the lungs and perihilar opacities are similar. No evidence of significant, postprocedural pneumothorax. Chest is otherwise stable. IMPRESSION: No significant, postprocedural pneumothorax evident status post right Mediport placement.
--- NOTE | 2019-06-05 16:17 | PDOC.MOPN ---
Interval History: states feels "great" - Vital Signs Vital Signs: Vital Signs (12 hours) Temp Pulse Resp BP Pulse Ox 06/05/19 15:12 97.6 F 73 19 131/72 95 06/05/19 12:35 97.9 F 70 18 134/63 95 06/05/19 08:05 96.9 F L 64 18 134/69 96 Weight Admit Weight 179 lb 3.2 oz Weight 195 lb 4.8 oz - Physical Exam General: Alert, Oriented x3, No acute distress HEENT: Atraumatic, PERRLA, EOMI, Mucous membr. moist/pink Lungs: Clear to auscultation, Normal air movement Cardiovascular: Regular rate, Normal S1, Normal S2, No murmurs, Gallops, Rubs. negative: Other Extremities: No clubbing, No cyanosis, No edema, Normal pulses, No tenderness/ swelling Skin: No rashes Neurological: Normal gait, Normal speech, Strength at 5/5 X4 ext, Normal tone, Sensation intact, Cranial nerves 3-12 NL, Reflexes 2+ Psych/Mental Status: Mental status NL, Mood NL - Labs Result Diagrams: 06/04/19 03:37 06/04/19 03:36 Lab results: Laboratory Results - last 24 hr 06/05/19 03:59: Uric Acid 7.3 H 05/31/19 13:20: Urine Total Protein 9.2, Urine Albumin 22.6, U Dqkza-2-Tplhjfaj (%) 8.8, U Rvzcp-1-Bahmolwx (%) 25.6, U Beta Globulin (%) 24.1, U Gamma Globulin (%) 18.8, U PEP [employer] Not Observed, Urine PEP Interpret Status: lab reviewed by me A/P - Problem (1) Hypercalcemia Current Visit: Yes Code(s): E83.52 - HYPERCALCEMIA Status: Acute (2) Lymphadenopathy Current Visit: Yes Code(s): R59.1 - GENERALIZED ENLARGED LYMPH NODES Status : Acute - Plan Plan: Await biopsy results, may need bone marrow biopsy plan CT scan tomorrow if GFR stable anticipate cycle 1 chemo on , then can dc home.
--- NOTE | 2019-06-05 16:45 | PQF ---
BETSY THOMPSON VENKAT R MD [id number] CLINICAL DOCUMENTATION IMPROVEMENT CLARIFICATION FORM: ICD-10 Updated PLEASE DO AN ADDENDUM TO THE PROGRESS NOTE WITH ANY DOCUMENTATION UPDATES OR ADDITIONS AND CARRY THROUGH TO DC SUMMARY. THANK YOU. Date: 06/05/2019 ATTN: DR. Jenaro STRAUSS Please exercise your independent, professional judgment in responding to the clarification form. .Clinical indicators are provided on the bottom of this form for your review. Please check appropriate box(s): [y ] Protein Calorie Malnutrition: [ ] Mild [ y] Moderate [ ] Severe [ ] Other Malnutrition (please specify) __ [ ] Underweight without malnutrition [ ] Cachexia [ ] Other diagnosis [ ] Unable to determine In addition, please specify: Present on Admission (POA): [ ] Yes [ ] No [ ] Unable to determine CLINICAL INDICATORS - SIGNS / SYMPTOMS / LABS / RESULTS AND LOCATION IN MR 05/30 H&P (JERMAINE) HPI: HE HAS HAD A POOR APPETITE AND HE BELIEVES HE HAS LOST ABOUT 25 POUNDS 05/31 CONSULT (OHAUSMAN) HPI: ADMITTED WITH COMPLAINT OF PROGRESSIVE WEAKNESS AND 25 POUNDS WEIGHT LOSS OVER LAST 3-4 MONTHS. HE REPORTS SOME ANOREXIA. 05/31 LINE OUT MAN ASSESSMENT: -12% WEIGHT LOSS(14-23 IBS) IN 3-4 MONTHS, PT NOTED TO HAVE POOR APPETITE RISK: LIKELY LYMPHOMA (MICHELLE/CONSULT)05/31 POSSIBLE MALIGNANCY (H&P/JERMAINE) 05/30 TREATMENTS: DIETARY CONSULT 05/31) RECOMMEND NEPRO BID Moderate Malnutrition (in acute illness) Energy Intake: <75% of estimated energy requirement for > 7 days Weight Loss: 1-2%/1 week; 5%/ 1 month; 7.5%/3 months Other: mild body fat loss; mild muscle mass loss; mild fluid accumulation; Severe Malnutrition (in acute illness) Energy Intake: < 50% of estimated energy requirement for > 5 days Weight Loss: >1-2%/1 week; >5%/1 month; >7.5%/3 months Other: moderate body fat loss; moderate muscle mass loss; moderate- severe fluid accumulation; 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 SHANIQUE (This form is maintained as a part of the permanent medical record) 2014 [employer], [employer]. All Rights Reserved [email or web address] [phone] MTDD
[2019-06-06] MEDS: Cinacalcet HCl 30 MG TAB PO SCH (09:12)
[2019-06-06] MEDS: Folic Acid 1 MG TAB PO SCH (09:12)
[2019-06-06] MEDS: Magnesium Oxide 400 MG TAB PO SCH ×2 (09:12→20:41)
[2019-06-06] MEDS: Famotidine 20 MG TAB PO SCH (09:12)
[2019-06-06] MEDS: Allopurinol 100 MG TAB PO SCH (09:12)
[2019-06-06] MEDS: predniSONE 50 MG TAB PO SCH (09:13)
[2019-06-06] MEDS: Heparin 5,000 UNITS/ML VIAL SC SCH ×3 (09:13→20:42)
--- NOTE | 2019-06-06 09:26 | PDOC.MOPN ---
Interval History: mild confusion early this am. No complaints. - Vital Signs Vital Signs: Vital Signs (12 hours) Temp Pulse Resp BP Pulse Ox 06/06/19 04:33 97.7 F 75 18 144/72 H 93 L 06/06/19 00:15 97.5 F L 74 16 132/62 93 L Weight Admit Weight 179 lb 3.2 oz Weight 195 lb 4.8 oz - Physical Exam General: Alert, Oriented x3, No acute distress HEENT: Atraumatic, PERRLA, EOMI, Mucous membr. moist/pink Lungs: Clear to auscultation, Normal air movement Cardiovascular: Regular rate, Normal S1, Normal S2, No murmurs, Gallops, Rubs Abdomen: Normal bowel sounds, Soft, No tenderness, No hepatospenomegaly, No masses Extremities: No clubbing, No cyanosis, No edema, Normal pulses, No tenderness/ swelling Skin: No rashes, No breakdown, No significant lesion Neurological: Normal gait, Normal speech, Strength at 5/5 X4 ext, Normal tone, Sensation intact, Cranial nerves 3-12 NL, Reflexes 2+ Psych/Mental Status: Mental status NL, Mood NL - Labs Result Diagrams: 06/04/19 03:37 06/04/19 03:36 Status: lab reviewed by me A/P - Problem (1) Hypercalcemia Current Visit: Yes Code(s): E83.52 - HYPERCALCEMIA Status: Acute (2) Lymphadenopathy Current Visit: Yes Code(s): R59.1 - GENERALIZED ENLARGED LYMPH NODES Status : Acute - Plan Plan: CMP today CT scan c/a/p if GFR ok Unable to get chemo meds until next week likely dc home tomorrow to follow-up clinic next week continue prednisone.
[2019-06-06 12:06] LABS: ALT (SGPT) 81 U/L (8-55); AST (SGOT) 69 U/L (5-34); Albumin 2.9 g/dL (3.4-4.8); Alkaline Phosphatase 54 U/L (40-110); Anion Gap 9 mmol/L (10-20); BUN (Urea Nitrogen) 41 mg/dL (8.4-25.7); Bilirubin, Total 0.9 mg/dL (0.2-1.2); Calc. Creatinine Clearance 47 mL/min (70-130); Calcium 9.6 mg/dL (7.8-10.44); Carbon Dioxide 28 mmol/L (23-31); Chloride 109 mmol/L (98-107); Estimated GFR-MDRD 41; Globulin 2.8 g/dL (2.4-3.5); Glucose 143 mg/dL (83-110); Protein, Total 5.7 g/dL (5.8-8.1); Sodium 143 mmol/L (136-145)
--- NOTE | 2019-06-06 13:43 | CT ---
CT CHEST AND ABDOMEN AND PELVIS WITH IV CONTRAST: INDICATIONS: History of lymphoma. COMPARISON: None. FINDINGS: There are prominent axillary lymph nodes. One of the largest on the left measures 6.3 x 3.2 cm. The l argest one on the right measures 4.7 x 2 cm. There are bilateral pleural effusions. There is mild cardiomegaly. There is interstitial prominence s een throughout both lungs with some patchy areas of reticulonodularity seen within both upper lobes a s well as the superior segment of both lower lobes. There are calcified lymph nodes within the medias tinum and hilar regions which may reflect sequela of prior granulomatous disease or possibly treated lymphoma. The spleen is enlarged, measuring 12.8 cm. The gallbladder is surgically absent. There is a mildly prominent peripancreatic lymph node, measuring 8.7 mm. There is a prominent portal caval lymph node, measuring 1.2 cm. There is extensive adenopathy of the retroperitoneum, one of the largest seen adjacent to the distal left aorta, measuring 1.9 cm. There are bilateral renal cysts, one of the largest in the right kidney measuring 6.6 cm. The gallbla dder is surgically absent. There is mild ascites. There are enlarged lymph nodes along the iliac vasculature, one of the largest seen adjacent to the l eft distal external iliac artery, measuring 2.2 cm. There is prominent inguinal lymphadenopathy bilat erally with one of the largest seen within the left inguinal region, measuring 1.2 cm. There is mild anasarca. There is an age indeterminate moderate wedge compression abnormality of L1. T here is grade 1 anterolisthesis of L4 on L5 which is likely degenerative. There is diffuse osteopenia . IMPRESSION: 1. Extensive adenopathy of the axillary regions, retroperitoneum, pelvis and both inguinal regions, c onsistent with the patient's history of lymphoma. There is mild splenomegaly. 2. Findings suggesting either volume overload or mild congestive heart failure. 3. Reticulonodularity of both upper lobes as well as the superior segment of both lower lobes may ref lect sequela of interstitial edema or bronchiolitis; however, lymphomatous involvement of the lungs i s not entirely excluded. 4. Calcified lymph nodes in the mediastinum and hilar regions may reflect sequela of treated lymphoma or findings of prior granulomatous disease. 5. Bilateral renal cysts. 6. Cholecystectomy. 7. Chronic appearing wedge compression abnormality of L1. POS: TPC
[2019-06-06 14:09] VITALS: BMI 28.8
[2019-06-06] MEDS ORDERED: Potassium Chloride 20 MEQ in Premix Bag 1 BAG IVPB SCH (17:00)
[2019-06-06] MEDS: Potassium Chloride 20 MEQ TAB PO SCH (20:42)
[2019-06-07] MEDS: Potassium Chloride 20 MEQ TAB PO SCH ×2 (00:14→05:01)
[2019-06-07] MEDS: Cinacalcet HCl 30 MG TAB PO SCH (09:45)
[2019-06-07] MEDS: Allopurinol 100 MG TAB PO SCH (09:45)
[2019-06-07] MEDS: Magnesium Oxide 400 MG TAB PO SCH (09:45)
[2019-06-07] MEDS: Famotidine 20 MG TAB PO SCH (09:45)
[2019-06-07] MEDS: predniSONE 50 MG TAB PO SCH (09:45)
[2019-06-07] MEDS: Heparin 5,000 UNITS/ML VIAL SC SCH (09:46)
[2019-06-07] MEDS: Folic Acid 1 MG TAB PO SCH (09:46)
--- NOTE | 2019-06-07 10:53 | PDOC.MOPN ---
Interval History: Pt feels well w/o complaints. Family states he still has moment of confusion. 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 - Vital Signs Vital Signs: Vital Signs (12 hours) Temp Pulse Resp BP Pulse Ox 06/07/19 08:00 97.8 F 86 16 167/7 H 96 Weight Admit Weight 179 lb 3.2 oz Weight 195 lb 4.8 oz - Physical Exam General: Alert, Cooperative HEENT: Atraumatic Lungs: Normal air movement Neurological: Cranial nerves 3-12 NL Psych/Mental Status: Mental status NL - Labs Result Diagrams: 06/04/19 03:37 06/06/19 10:49 Lab results: Laboratory Results - last 24 hr 06/06/19 10:49: Sodium 143, Potassium 3.0 L, Chloride 109 H, Carbon Dioxide 28, Anion Gap 9 L, BUN 41 H, Creatinine 1.64 H, Estimated GFR (MDRD) 41, Glucose 143 H, Calcium 9.6, Total Bilirubin 0.9, AST 69 H, ALT 81 H, Alkaline Phosphatase 54, Serum Total Protein 5.7 L, Albumin 2.9 L, Globulin 2.8, Albumin/ Globulin Ratio 1.0 L 06/06/19 10:42: Magnesium 1.7 - Pathology Pathology: Abrnomal CD3+ T-cells A/P - Problem (1) Acute kidney injury Current Visit: Yes Code(s): N17.9 - ACUTE KIDNEY FAILURE, UNSPECIFIED Status : Acute (2) Hypercalcemia Current Visit: Yes Code(s): E83.52 - HYPERCALCEMIA Status: Acute (3) Lymphadenopathy Current Visit: Yes Code(s): R59.1 - GENERALIZED ENLARGED LYMPH NODES Status : Acute - Plan Plan: f/u final pathology to determine proper treatment At least stage III disease based on CT: will need BMBx and potentially an LP as well if AMS does not resolve given now resolution of hypercalcemia ok to DC home today if electrolytes are normal f/u in clinic next week
[2019-06-07 11:11] LABS: Anion Gap 8 mmol/L (10-20); BUN (Urea Nitrogen) 37 mg/dL (8.4-25.7); Calc. Creatinine Clearance 52 mL/min (70-130); Carbon Dioxide 30 mmol/L (23-31); Chloride 107 mmol/L (98-107); Estimated GFR-MDRD 46; Glucose 90 mg/dL (83-110); Potassium 3.6 mmol/L (3.5-5.1); Sodium 141 mmol/L (136-145)
[2019-06-07] MEDS ORDERED: Potassium Chloride 20 MEQ TAB PO SCH (12:45)
[2019-06-07] MEDS ORDERED: Lisinopril 10 MG TAB PO SCH (12:45)
[2019-06-07 13:58] VITALS: BP 148/78; TEMP 98
[2019-06-08] MEDS ORDERED: Lisinopril 10 MG TAB PO SCH (09:00)
== END 2019-06-07 14:47 | disposition home or self-care (01) | DRG 824 ==
LOC: ERS 13:49 → 2NO 19:05 → ONC 06-05 17:47
PROVIDERS: ADMIT Internal Medicine; ATTEND Internal Medicine
PROC: 07BJ0ZX Excision of Left Inguinal Lymphatic, Open Approach, Diagnostic (ICD-10-PCS; principal; 2019-06-01)
PROC: 0JH63XZ Insertion of Tunneled Vascular Access Device into Chest Subcutaneous Tissue and Fascia, Percutaneous Approach (ICD-10-PCS; 2019-06-05)
PROC: 02HV33Z Insertion of Infusion Device into Superior Vena Cava, Percutaneous Approach (ICD-10-PCS; 2019-06-05)
DX: C83.51 Lymphoblastic (diffuse) lymphoma, lymph nodes of head, face, and neck (principal); N17.9 Acute kidney failure, unspecified; E44.0 Moderate protein-calorie malnutrition; N18.4 Chronic kidney disease, stage 4 (severe); E83.39 Other disorders of phosphorus metabolism; R59.1 Generalized enlarged lymph nodes; E83.52 Hypercalcemia; E87.6 Hypokalemia; I10 Essential (primary) hypertension; E78.00 Pure hypercholesterolemia, unspecified; I12.9 Hypertensive chronic kidney disease with stage 1 through stage 4 chronic kidney disease, or unspecified chronic kidney disease; Z68.28 Body mass index [BMI] 28.0-28.9, adult; E79.0 Hyperuricemia without signs of inflammatory arthritis and tophaceous disease; K59.00 Constipation, unspecified; E83.42 Hypomagnesemia
CPT/HCPCS: 36415; 36416; 71045; 71260; 74177; 76536; 80048; 80053; 81003; 81015; 82306; 82565; 82570; 82607; 82652; 82746; 83615; 83735; 83970; 84100; 84166; 84300; 84443; 84550; 85007; 85025; 85027; 88184; 88307; 88312; 88341; 88342; 88360; 93005; 93306; C1788; J0630; J0690; J1100; J1642; J1644; J2001; J2250; J2405; J2704; J3010; J3475; J3480; J3489; J3490; J7050; J7512; S0020

== ENCOUNTER 2019-06-07 23:23 | Emergency (ER) | payer MEDICARE, BC ==
[2019-06-08 00:46] LABS: #Lymphocytes 0.1 thou/uL (1.20-3.40); #Monocytes 0.6 thou/uL (0.11-0.59); #Neutrophils 6.7 thou/uL (1.40-6.50); %Basophils 0.5 % (0.0-1.0); %Eosinophils 0.1 % (0.0-10.0); %Lymphocytes 1.7 % (21.0-51.0); %Monocytes 8.6 % (0.0-10.0); %Neutrophils 89.1 % (42.0-75.0); Hemoglobin 10.7 g/dL (14.0-18.0); Mean Corpuscular HGB CONC 33.8 g/dL (32.0-36.0); Mean Corpuscular Hemoglobin 29.8 pg (27.0-31.0); Mean Corpuscular Volume 88.3 fL (78.0-98.0); Mean Platelet Volume 7.4 fL (7.4-10.4); Platelet Count 139 thou/uL (130-400); Red Blood Cell (RBC) Count 3.58 mill/uL (4.70-6.10); White Blood Cell (WBC) Count 7.5 thou/uL (4.8-10.8)
[2019-06-08 01:07] LABS: ALT (SGPT) 94 U/L (8-55); AST (SGOT) 39 U/L (5-34); Albumin 3.1 g/dL (3.4-4.8); Alkaline Phosphatase 61 U/L (40-110); Anion Gap 11 mmol/L (10-20); BUN (Urea Nitrogen) 37 mg/dL (8.4-25.7); Bilirubin, Total 1.1 mg/dL (0.2-1.2); CK (CPK) 47 U/L (30-200); Calc. Creatinine Clearance 0 mL/min (70-130); Calcium 8.6 mg/dL (7.8-10.44); Carbon Dioxide 28 mmol/L (23-31); Chloride 107 mmol/L (98-107); Estimated GFR-MDRD 44; Globulin 2.8 g/dL (2.4-3.5); Glucose 170 mg/dL (83-110); Potassium 3.8 mmol/L (3.5-5.1); Protein, Total 5.9 g/dL (5.8-8.1); Sodium 142 mmol/L (136-145)
[2019-06-08] MEDS ORDERED: Furosemide 40 MG TAB ONE (01:51)
--- NOTE | 2019-06-08 07:39 | RAD ---
CHEST 1 VIEW: INDICATION: History of congestion and sinus problems. FINDINGS: No consolidation is evident. Cardiomegaly and right chest wall port is stable. No acute osseous abn ormality is evident. No pleural effusion or pneumothorax is noted. IMPRESSION: No acute cardiopulmonary abnormality. POS: BH
== END 2019-06-08 01:58 | disposition home or self-care (01) ==
LOC: ERS 23:23
DX: E87.70 Fluid overload, unspecified (principal); R06.01 Orthopnea; I10 Essential (primary) hypertension; E78.5 Hyperlipidemia, unspecified
CPT/HCPCS: 36415; 71045; 80053; 82550; 83880; 84484; 85025; 93005

== ENCOUNTER 2019-06-15 07:45 | Outpatient (CLI) | payer MEDICARE, BC ==
--- NOTE | 2019-06-15 11:42 | PET ---
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 Exam requested for initial staging. COMPARISON: None. CORRELATION: CT chest and abdomen and pelvis of 06/06/2019. TECHNIQUE: PET scanning with CT attenuation correction was performed from the vertex through the proximal thighs following the intravenous administration of 11.2 millicuries of F18 fluorodeoxyglucose in the right antecubital fossa. FINDINGS: There is extensive merle hypermetabolism including the neck, axillae, abdomen, pelvis and inguinal an d femoral regions. A maximum SUV of 18 is seen in the left axilla. No hypermetabolic pulmonary nodules or liver, adrenal or skeletal lesions are seen. There is physiologic activity in the GI and tracts, heart and brain. CT scan used for attenuation correction demonstrates no evidence of pleural effusions or ascites. IMPRESSION: Extensive viable lymphoma on both sides of the diaphragm. POS: AARTIH
== END 2019-06-15 07:46 | disposition home or self-care (01) ==
LOC: PET 07:45
PROVIDERS: ATTEND Internal Medicine Hematology & Oncology
DX: C85.11 Unspecified B-cell lymphoma, lymph nodes of head, face, and neck (principal); C85.12 Unspecified B-cell lymphoma, intrathoracic lymph nodes
CPT/HCPCS: 78815; A9552

== ENCOUNTER 2019-06-19 08:26 | Day surgery (SDC) | payer MEDICARE, BC ==
[2019-06-18 14:56] VITALS: BMI 26.9
[2019-06-19 08:32] LABS: INR-International Normal Ratio 1.1; PTT 30.6 SEC (22.9-36.1); Prothrombin Time 13.8 SEC (12.0-14.7)
[2019-06-19 09:26] VITALS: BP 136/96; TEMP 97.8
--- NOTE | 2019-06-19 11:56 | CT ---
CT Deep Bone Perc Biopsy History: Lymphoma Comparison: PET/CT June 15, 2019 Findings: Patient was brought to the CT suite. All questions were answered. Informed consent was obta ined. Timeout performed. The patient was put in the prone position. Using CT guidance the right iliac bone was accessed. A tot al of 10 mL of aspirate was obtained. 2.5 cm core was obtained. The samples were given to the cytopathologist. The patient tolerated the procedure well without complication. Impression: Technically successful CT-guided bone marrow biopsy.
== END 2019-06-19 11:30 | disposition home or self-care (01) ==
LOC: CT 08:26
PROVIDERS: ATTEND Internal Medicine Hematology & Oncology
PROC: 07DR3ZX Extraction of Iliac Bone Marrow, Percutaneous Approach, Diagnostic (ICD-10-PCS; principal; 2019-06-19)
DX: C85.11 Unspecified B-cell lymphoma, lymph nodes of head, face, and neck (principal); E83.52 Hypercalcemia; E11.9 Type 2 diabetes mellitus without complications; I10 Essential (primary) hypertension; Z79.899 Other long term (current) drug therapy
CPT/HCPCS: 20225; 36415; 77012; 85097; 85610; 85730; 88184; 88237; 88264; 88280; 88305; 88311; 88313; 88341; 88342

== ENCOUNTER 2019-07-04 16:18 | Inpatient (IN) | payer MEDICARE, BC ==
[~2019-07-04 16:18] MED LIST: Iopamidol-370 76% 500 ML 1 ML ONE; Lidocaine 1% PF 5 ML VIAL ONE; Ondansetron PF 4 MG/2 ML Vial ONE; PROPOFOL 200 MG/20 ML VIAL ONE; Succinylcholine Chloride 20 MG/ML 10 ml SYRINGE FS ONE
[2019-07-04] MEDS ORDERED: Cefepime 2 GM VIAL ONE (16:54)
[2019-07-04 17:10] LABS: Hemoglobin 8.9 g/dL (14.0-18.0); Mean Corpuscular HGB CONC 34.1 g/dL (32.0-36.0); Mean Corpuscular Hemoglobin 29.8 pg (27.0-31.0); Mean Corpuscular Volume 87.2 fL (78.0-98.0); Mean Platelet Volume 7.3 fL (7.4-10.4); Platelet Count 183 thou/uL (130-400); RBC Distribution Width 13.4 % (11.5-14.5); Red Blood Cell (RBC) Count 2.99 mill/uL (4.70-6.10); White Blood Cell (WBC) Count 14.7 thou/uL (4.8-10.8)
[2019-07-04 17:21] LABS: ALT (SGPT) 20 U/L (8-55); AST (SGOT) 23 U/L (5-34); Alkaline Phosphatase 86 U/L (40-110); Anion Gap 12 mmol/L (10-20); BUN (Urea Nitrogen) 13 mg/dL (8.4-25.7); Calc. Creatinine Clearance 0 mL/min (70-130); Calcium 7.9 mg/dL (7.8-10.44); Carbon Dioxide 20 mmol/L (23-31); Chloride 106 mmol/L (98-107); Estimated GFR-MDRD 56; Globulin 2.8 g/dL (2.4-3.5); Glucose 179 mg/dL (83-110); Magnesium 1.3 mg/dL (1.6-2.6); Potassium 3.3 mmol/L (3.5-5.1); Protein, Total 5.8 g/dL (5.8-8.1); Sodium 135 mmol/L (136-145)
--- NOTE | 2019-07-04 17:33 | RAD ---
EXAM: CHEST ONE VIEW HISTORY: Fever. Patient started chemotherapy treatments 2 weeks ago. COMPARISON: 06/08/2019 FINDINGS: A right internal jugular vein Mediport catheter remains in place. Cardiac silhouette is magnified by projection. Pulmonary vasculature is within normal limits. There is mild atelectasis present at the right lung base. No consolidation or pleural fluid is seen. Degenerative changes are again noted in t he spine. Calcified mediastinal lymph nodes are present. There has been no significant interval change. IMPRESSION: No acute cardiopulmonary process.
[2019-07-04] MEDS ORDERED: Aspirin Chewable 81 MG TAB ONE (17:42)
[2019-07-04] MEDS ORDERED: Clindamycin/D5W 900 mg/50 ml Premix Bag ONE (17:42)
[2019-07-04 17:43] LABS: CKMB 0.4 ng/mL (0-6.6)
[2019-07-04 17:49] LABS: Band 18 % (5-11); Lymphocytes 1 % (21-51); MDiff Complete? YES; Metamyelocyte 1 % (0-0); Monocytes 2 % (0-10); Neutrophil 78 % (42-75); Platelet Morphology Comment Appears Adequate; RBC Morphology Normal; Toxic Granulation SLIGHT
[2019-07-04] MEDS ORDERED: Fentanyl 100 MCG/2 ML VIAL ONE (18:33)
--- NOTE | 2019-07-04 18:40 | CT ---
CT ABDOMEN AND PELVIS WITH IV CONTRAST 07/04/2019 CLINICAL INFORMATION: Fever and generalized weakness. COMPARISON: 06/06/2019 Technique: Multiple contiguous axial CT images are obtained through the abdomen and pelvis with IV contrast. Cor onal reformatted images are provided. FINDINGS: Lower Chest: The bilateral pleural effusions have resolved. Minimal atelectasis is present at each jess ng base. Vessels: Vascular calcifications are seen in the coronary arteries as well as involving the abdominal aorta and iliac arteries. Abdomen: Portal vein:Patent Gallbladder: Surgically absent. Liver: within normal limits. Spleen: A subcentimeter too small to characterize hypodense lesion is seen in the central body of the spleen which may represent a tiny cyst. Pancreas: Within normal limits. Adrenals: within normal limits. Kidneys: Multiple stable hypodense renal lesions are seen bilaterally compatible with renal cyst. The re is a stable mildly increased density exophytic cystic lesion superior pole left kidney likely representing a Bosniak type II renal cystic lesion. Again noted is nonspecific but symmetric bilatera l perinephric stranding. Bowel: Colonic diverticulosis is seen. Loops of small bowel are normal in caliber. Appendix: The appendix is visualized and normal in caliber. Peritoneum: No ascites or free air; no fluid collection. Mesentery and Retroperitoneum: Again noted is increased number and size of aortocaval lymph nodes as well as enlarged lymph nodes along the iliac chains bilaterally greater on the left. The largest left para-aortic lymph node measures 1.6 cm in short axis dimension. Prior measurement of 1.9 cm was obtained. Largest lymph node along the left iliac chain at the lateral aspect left pelvis is again seen measuring 2.1 cm in similar in size to prior exam. Lymph node just anterior and lateral to this region is again seen and measures 2.7 cm in short axis dimension which is stable compared to prior study. Abdominal Wall: Enlarged bilateral inguinal lymph nodes are seen. Largest lymph node in the left ingu inal region measures 1.7 cm. A lobulated hypodense fluid collection is seen in the left inguinal region which measures 7.4 cm cran iocaudal x7.1 cm transverse x6.5 cm AP. This fluid collection does abut the skin surface anterolaterally and may represent an abscess collection. This collection was visualized on prior PET/ CT exam on 06/15/2019 and measured 5.6 cm transverse x4.8 cm AP. A thin enhancing wall seen at the periphery of this lobulated cystic lesion. There is mild edema and stranding seen adjacent to this st ructure which does extend inferiorly and medially and likely into the scrotum which is incompletely imaged. Pelvis: Reproductive Organs: No pelvic masses. Pelvis: Enlarged iliac chain and bilateral inguinal lymph nodes are seen as described above. Minimal presacral fluid and stranding is again seen mildly improved from prior exam. Bladder: within normal limits. Bones: Multilevel degenerative changes are seen. There is a stable small burst fracture involving the L1 vertebral body. There is stable grade 1 anterolisthesis of L4 and L5 related to severe facet hypertrophic changes. IMPRESSION: 1. Enlargement of a lobulated hypodense fluid attenuation collection in the left inguinal region whic h has the appearance of an abscess collection. Markedly necrotic lymphadenopathy is thought much less likely. Largest dimension of this hypodense collection measures 7.1 cm. There are inflammatory c hanges surrounding the fluid collection and extending into the left gluteal region and inferiorly and medially and possibly into the scrotum, but the scrotum is not visualized. 2. Persistent lymphadenopathy with evidence of aortocaval and bilateral iliac chain lymphadenopathy a s well as bilateral inguinal lymphadenopathy. 3. Improvement in small bilateral pleural effusions with minimal atelectasis at each lung base. 4. Stable multiple bilateral renal cyst and Bosniak type II cystic renal lesions. 5. Additional findings as above. 6. Above findings discussed with Jess Mills, nurse practitioner in the emergency department on at 1837 hours
--- NOTE | 2019-07-04 18:42 | CON ---
DATE OF CONSULTATION: CHIEF COMPLAINT: Fever and painful left groin bulge. HISTORY OF PRESENT ILLNESS: This is a 79-year-old male, who underwent a left inguinal lymph node biopsy about a month ago. Over the last 10 days, he has increased swelling, pain, and fever. 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 PAST MEDICAL HISTORY: Significant for; 1. Hypertension. 2. Hyperlipidemia. 3. Diabetes. 4. T-cell lymphoma. PAST SURGERIES: 1. Cholecystectomy. 2. He has had some type of pancreatic procedure. MEDICATIONS: Include: 1. Simvastatin. 2. Magnesium. 3. Lisinopril. 4. Lasix. 5. Folic acid. 6. Allopurinol. PHYSICAL EXAMINATION: VITAL SIGNS: Temperature now 98.6. GENERAL: He is lying still, in no apparent distress. HEENT: Unremarkable. LUNGS: Clear. HEART: Regular rate and rhythm. ABDOMEN: Soft. He has an 8 cm erythematous bulge in his left groin, very tender. DIAGNOSTIC STUDIES: He had a CT scan showing an enhancing rim fluid collection with air, consistent with abscess. ASSESSMENT: Left groin abscess. PLAN: I and D in the OR. Job ID: [id number]
[2019-07-04 18:45] LABS: INR-International Normal Ratio 1.3; PTT 38.3 SEC (22.9-36.1); Prothrombin Time 16.3 SEC (12.0-14.7)
[2019-07-04] MEDS ORDERED: HYDROcodone/Acetaminophen 10/325 mg Tablet PO PRN (18:51)
[2019-07-04] MEDS ORDERED: Ondansetron PF 4 MG/2 ML Vial IVP PRN (18:51)
[2019-07-04] MEDS ORDERED: HYDROcodone/Acetaminophen 5/325 mg Tablet PO PRN (18:51)
[2019-07-04] MEDS ORDERED: EPINEPHrine 1 MG/ML AMP ONE ×2 (19:08→19:11)
[2019-07-04] MEDS ORDERED: Bupivacaine PF 0.5% 30 ML VIAL ONE (19:08)
[2019-07-04 19:26] LABS: Bilirubin Negative (Negative); Blood, Urine Trace (Negative); Clarity Clear (Clear); Glucose, Urine (Dipstick) Normal (Negative); Leukocyte Negative Leu/uL (Negative); Nitrite Negative (Negative); Protein, Urine (Dipstick) 70 mg/dL (Neg-Trace); RBC/HPF 0-3 HPF (0-3); Squamous Epithelial 0-3 HPF (0-3); Urobilinogen Normal mg/dL (Less than 2); WBC/HPF 0-3 HPF (0-3)
[2019-07-04] MEDS ORDERED: Morphine 4 MG/ML VIAL SLOW IVP PRN (19:27)
[2019-07-04] MEDS ORDERED: Morphine 2 MG/ML SYRINGE SLOW IVP PRN (19:27)
[2019-07-04 19:28] LABS: Bacteria/HPF 1+ HPF (None Seen)
[2019-07-04] MEDS ORDERED: Potassium Phosphate 30 MMOL in Sodium Chloride 0.9% 500 ML IVPB SCH (19:30)
[2019-07-04] MEDS ORDERED: HYDROmorphone 2 MG/ML VIAL SLOW IVP PRN (19:34)
[2019-07-04] MEDS ORDERED: Ondansetron HCl/PF 4 MG/2 ML Vial IVP PRN (19:34)
[2019-07-04] MEDS ORDERED: Promethazine HCl 25 MG/ML VIAL SLOW IVP PRN (19:34)
[2019-07-04] MEDS ORDERED: PACU-Morphine 4MG/ML VIAL SLOW IVP PRN (19:34)
[2019-07-04] MEDS ORDERED: Morphine Sulfate 2 MG/ML SYRINGE SLOW IVP PRN (19:34)
[2019-07-04] MEDS ORDERED: Promethazine HCl 25 MG/ML VIAL IM PRN (19:34)
--- NOTE | 2019-07-04 20:15 | HP ---
PRIMARY CARE PHYSICIAN: Unknown. ONCOLOGIST: Meron Izquierdo MD CHIEF COMPLAINT: Fevers and weakness x1 day, left groin redness and swelling x3 days. HISTORY OF PRESENT ILLNESS: This is a 79-year-old male with past medical history of hypertension and hyperlipidemia, who was recently hospitalized for lymphadenopathy and underwent a left groin excisional lymph node biopsy on 06/01/[address] Benson. Pathology revealing peripheral T-cell lymphoma, who thereafter underwent chemo port placement and his first round of chemotherapy two weeks ago without complication, who was brought in to [facility] Emergency Room for complaints of fevers and profound weakness that started this morning along with a prodromal complaint of increasing erythema, warmth and tenderness in the left groin of three days duration without reported trauma or injury, prompting further evaluation. Initial vitals in the ER revealed a temperature maximum of 103.1, pulse 119, sinus tachycardia, normotensive blood pressure readings. Lab work revealed a white blood cell count of 14.7 with neutrophil predominance. Troponin I was elevated at 0.384 in the absence of anginal complaints and chemistries revealed hypokalemia and hypomagnesemia. The patient was noted to have extensive erythema and soft tissue bulge in the left groin, and a CT abdomen and pelvis with IV contrast demonstrated a 7.1 cm lobulated hypodense fluid collection in the left inguinal region, which has the appearance of an abscess collection with inflammatory changes extending into the left gluteal region as well as findings of persistent lymphadenopathy throughout abdominopelvic region. The patient was administered IV fluid bolus for sepsis protocol, blood cultures were obtained, and thereafter administered clindamycin, vancomycin and cefepime, and admitted for further inpatient evaluation. General surgeon was consulted and the patient is being taken urgently to OR for I and D. At bedside in the ER, the patient is currently with son. He offers no other acute complaints and states he feels better. He again reiterates any anginal complaints. Recent transthoracic echocardiogram on 06/03/2019 reveals moderate aortic stenosis with LVEF 50% to 55%. The patient denies any changes in functional status. H and H are 8.9/26.1. OR nurse reports surgeon is aware of elevated troponin. PAST MEDICAL HISTORY: Recently diagnosed T-cell lymphoma following a left groin excisional lymph node biopsy on 06/01/2019, who completed first round of chemotherapy two weeks ago; hypertension; dyslipidemia. PAST SURGICAL HISTORY: Left groin excisional biopsy on 06/01/2019, chemo port placement on 06/05/2019, cholecystectomy, lymph node biopsy. SOCIAL HISTORY: The patient lives at home. He denies any current tobacco or alcohol use. ALLERGIES: NONE DOCUMENTED. REVIEW OF SYSTEMS: Pertinent positives as per HPI. Remainder of review of systems is negative. HOME MEDICATIONS: Will be reviewed as per admission medication reconciliation. FAMILY HISTORY: The patient denies any malignancy in family members. PHYSICAL EXAMINATION: VITAL SIGNS: T-max 103.1; pulse initially 119, currently 87; blood pressure most recently 115/58; oxygen saturation 98% on 2 L nasal cannula, 93% on room air; respirations 14 to 18, unlabored. GENERAL APPEARANCE: This is an elderly male, nontoxic in appearance. He is awake, alert, oriented, coherent and lucid, not in any obvious distress. HEENT: Normocephalic, atraumatic. No facial asymmetry. Mucous membranes are moist. NECK: Supple. CARDIOVASCULAR SYSTEM: S1 and S2. Regular rate and rhythm. Left parasternal border systolic ejection murmur noted. No chest wall tenderness. LUNGS: Bilateral equal air entry on anterior auscultation. Nonlabored respirations. No wheezing or rales. ABDOMEN: Soft and nondistended. There is exquisite erythema, warmth and bulge noted in the left groin at area of prior excisional lymph node biopsy. Incision appears clean and intact without obvious drainage. Swelling extends towards the groin with surrounding warmth noted. EXTREMITIES: No edema, cyanosis, or deformities appreciated. SKIN: Finding in left groin as mentioned above. Otherwise, warm to touch without rash, pallor, or abrasion. There is a right chest wall chemo port noted. LABORATORY DATA: WBC 14.7, H and H 8.9/26.1, platelets 183, differential 78% neutrophils. Troponin I 0.384. INR 1.3. Lactic acid 1.8. Influenza antigen negative. IMAGING DATA: CT abdomen and pelvis with IV contrast reveals a lobulated hypodense fluid collection in the left inguinal region measuring 7.4 cm craniocaudal times 7.1 cm transverse times 6.5 cm AP. Fluid collection abuts skin surface anterolaterally may represent an abscess collection. This collection was visualized on prior PET-CT and measures 5.6 x 4.8 cm. Mild edema and stranding seen adjacent to this structure, which does extend inferiorly medially and likely into the scrotum, which is incompletely imaged. ASSESSMENT AND PLAN: 1. Sepsis secondary to left groin abscess collection. The patient recently underwent an excisional left groin lymph node biopsy on 06/01/2019 for evaluation of unspecified lymphadenopathy. Noted concerns for sepsis by clinical criteria and abnormal CT abdomen and pelvis findings suggestive of a 7.4 x 7.1 x 6.5 cm abscess, which extends inferiorly and medially and likely into the scrotum, which is incompletely imaged. The patient is en route to operating room for source control. He has received appropriate IV fluid bolus, blood cultures, and been started on broad-spectrum IV antibiotics. Continue to monitor CBC and vitals, and follow cultures as well as await intraoperative culture reports. Noted elevated troponin likely secondary to sepsis and less likely to be from angina. 2. Left groin abscess. Demonstrated on CT abdomen and pelvis. The patient underwent recent excisional lymph node biopsy on 06/01/2019 for lymphadenopathy evaluation as the aforementioned. 3. T-cell lymphoma. This is a new diagnosis during recent hospitalization after the patient underwent left groin lymph node biopsy with pathology confirmation. The patient is status post chemo port placement on 06/05/2019 and underwent first round of chemotherapy approximately two weeks ago. He follows with oncologist, Dr. Izquierdo, and has undergone an outpatient PET-CT scan as well as a recent CT-guided bone marrow biopsy, which was negative for lymphoma and revealed trilineage hematopoiesis. 4. Elevated troponin of unspecified etiology. Doubt acute coronary syndrome as the patient denies any anginal complaints, may also be secondary to sepsis. We will trend serial cardiac biomarkers. Recent transthoracic echocardiogram on 06/03/2019 with noted moderate aortic stenosis and preserved left ventricular ejection fraction. 5. Acute on chronic anemia of unspecified etiology, possibly secondary to recent chemotherapy or possibly secondary to hemorrhagic component to left groin abscess. Monitor H and H in a.m. Coagulation profile notably unremarkable. 6. Hypokalemia, will replete. 7. Hypo magnesemia, will replete. 8. Hypertension, benign. 9. Dyslipidemia. Resume home medications once tolerating oral intake. 10. Deep venous thrombosis prophylaxis: Bilateral lower extremity sequential compression devices. Awaiting surgical intervention. 11. Check a.m. labs on 07/05/2019. 12. Disposition: The patient will be admitted as inpatient status to telemetry floor. Anticipate greater than two midnights stay. 13. Code status: Full code. Job ID: [id number]
[2019-07-04 21:32] LABS: Critical Call Chem Troponin I RESULT DECREASING; Troponin I 0.366 ng/mL (< 0.028)
[2019-07-04 21:35] VITALS: BMI 27.5
[2019-07-04] MEDS: Piperacillin/Tazobactam 3.375 GM in Sodium Chloride 0.9% 100 ML IVPB SCH (23:26)
[2019-07-04] MEDS ORDERED: Magnesium 2 GM/50 ML 2 GM in Premix Bag 1 BAG IVPB SCH (23:59)
[2019-07-05 00:41] LABS: Troponin I 0.242 ng/mL (< 0.028)
[2019-07-05 05:21] LABS: Anion Gap 11 mmol/L (10-20); BUN (Urea Nitrogen) 14 mg/dL (8.4-25.7); Calc. Creatinine Clearance 74 mL/min (70-130); Calcium 7.2 mg/dL (7.8-10.44); Carbon Dioxide 21 mmol/L (23-31); Chloride 112 mmol/L (98-107); Estimated GFR-MDRD 70; Glucose 107 mg/dL (83-110); Potassium 3.5 mmol/L (3.5-5.1); Sodium 140 mmol/L (136-145)
[2019-07-05 06:05] LABS: Band 24 % (5-11); Hemoglobin 7.9 g/dL (14.0-18.0); Lymphocytes 4 % (21-51); MDiff Complete? YES; Mean Corpuscular HGB CONC 33.8 g/dL (32.0-36.0); Mean Corpuscular Volume 88.8 fL (78.0-98.0); Monocytes 3 % (0-10); Neutrophil 69 % (42-75); Platelet Count 143 thou/uL (130-400); RBC Distribution Width 13.5 % (11.5-14.5); Red Blood Cell (RBC) Count 2.64 mill/uL (4.70-6.10); White Blood Cell (WBC) Count 10.5 thou/uL (4.8-10.8)
[2019-07-05] MEDS: Vancomycin HCl 750 MG in Sodium Chloride 0.9% 250 ML 250 ML IVPB SCH ×2 (06:12→18:42)
--- NOTE | 2019-07-05 08:27 | OP ---
DATE OF PROCEDURE: 07/04/2019 PREOPERATIVE DIAGNOSIS: Abscess, left groin. PROCEDURE PERFORMED: Incision and drainage of infected lymphocele, left groin. INDICATIONS: This is a 79-year-old male, who has T-cell lymphoma, had a lymph node biopsy about a month ago, about a 1-week history of increasing pain, swelling, erythema, and fever to 103. He is somewhat neutropenic due to chemotherapy. FINDINGS: About 200 mL of cloudy serous fluid in this abscess cavity. DESCRIPTION OF PROCEDURE: After informed consent was obtained, the patient was taken to the operating room and given general mask anesthesia. He was placed in supine position. His groin was prepped and draped in the usual fashion. Local anesthesia infiltrated subcutaneously and deep with 0.5% Marcaine. A transverse incision was performed through the scar, with release of fluid under pressure. This was a cloudy clear fluid, consistent with an infected lymphocele. Cultures were obtained. The wound was thoroughly irrigated with saline and packed with Betadine gauze. Then, sterile bandage was applied. The patient tolerated the procedure well, transferred to Recovery in good condition. Sponge and needle count verified correct x2. Job ID: [id number]
[2019-07-05] MEDS: Piperacillin/Tazobactam 3.375 GM in Sodium Chloride 0.9% 100 ML IVPB SCH ×3 (09:40→15:25)
[2019-07-05] MEDS ORDERED: Furosemide 40 MG/4 ML VIAL SLOW IVP SCH (11:15)
--- NOTE | 2019-07-05 15:12 | PDOC.GSPN ---
Surgery Progress Note: Subj - Subjective Patient reports: no new complaints Surgery Progress Note: Obj - Vital signs Vital signs: Vital Signs - Most Recent Temp Pulse Resp BP Pulse Ox 99.2 F 99 21 H 125/65 93 L 07/05/19 11:28 07/05/19 11:28 07/05/19 11:28 07/05/19 11:28 07/05/19 12:20 - Physical Exam General: no distress Wound: other (Wound packed with wet to dry) Surgery Progress Note: Results - Labs Result Diagrams: 07/05/19 04:37 07/05/19 04:37 Lab results: Laboratory Results - last 24 hr 07/05/19 07/05/19 07/05/19 04:37 04:37 04:37 WBC 10.5 RBC 2.64 L Hgb 7.9 L Hct 23.5 L MCV 88.8 MCH 30.0 MCHC 33.8 RDW 13.5 Plt Count 143 MPV 7.0 L Neutrophils % (Manual) 69 Band Neuts % (Manual) 24 H Lymphocytes % (Manual) 4 L Monocytes % (Manual) 3 Sodium 140 Potassium 3.5 Chloride 112 H Carbon Dioxide 21 L Anion Gap 11 BUN 14 Creatinine 1.03 Estimated GFR (MDRD) 70 Glucose 107 Calcium 7.2 L Magnesium 1.9 Surgery Progress Note: A/P - Problem (1) Wound infection Current Visit: Yes Code(s): T14.8XXA - OTHER INJURY OF UNSPECIFIED BODY REGION , INITIAL ENCOUNTER; L08.9 - LOCAL INFECTION OF THE SKIN AND SUBCUTANEOUS TISSUE , UNSP Status: Acute - Plan Plan: s/p I&D at previous lymph node biopsy site -arrange home health -await cultures
--- NOTE | 2019-07-05 15:57 | CON ---
DATE OF CONSULTATION: REASON FOR CONSULTATION: Moderate aortic stenosis and elevated troponin. HISTORY OF PRESENT ILLNESS: Mr. Boyd is a 79-year-old gentleman, who has not been seen or evaluated by Cardiology in the past. He underwent an echo in May that showed moderate aortic stenosis. He recently presented with abscess that was drained. Troponin was mildly elevated. He had a brief episode of shortness of breath today. This occurred after surgery. He otherwise denies chest pain, pressure, or other associated symptoms. He has also been anemic with a hemoglobin this morning of 7.9. PAST MEDICAL HISTORY: 1. Moderate aortic stenosis. 2. Recent B-cell lymphoma, on chemotherapy. 3. Hypertension. 4. Hyperlipidemia. 5. Recent left colon excision. 6. Chemo-port placement. 7. Cholecystectomy. 8. Lymph node biopsy. SOCIAL HISTORY: Currently, lives at home. No current tobacco or alcohol use. ALLERGIES: NONE. REVIEW OF SYSTEMS: A 10-point review of systems is reviewed and as above, otherwise negative. PHYSICAL EXAMINATION: VITAL SIGNS: Blood pressure 125/65, pulse 99, temperature afebrile. GENERAL: Patient is a pleasant gentleman who is in no acute distress. The patient appears their stated age. NEUROLOGIC: The patient is alert and oriented x3 with no focal neurologic deficits. HEENT: Sclerae without icterus. Mouth has moist mucous membranes with normal pallor. NECK: No JVD. Carotid upstroke brisk. No bruits bilaterally. LUNGS: Clear to auscultation with unlabored respirations. BACK: No scoliosis or kyphosis. CARDIAC: A 2/6 systolic ejection murmur. ABDOMEN: Soft, nontender, nondistended. No peritoneal signs present. No hepatosplenomegaly. No abnormal striae. EXTREMITIES: 2+ femoral and 2+ dorsalis pedis pulses. No cyanosis, clubbing, or edema. SKIN: No gross abnormalities. PERTINENT LABORATORY DATA: As above, peak troponin 0.384. IMPRESSION: 1. Moderate aortic stenosis. 2. Elevated troponin. 3. B-cell lymphoma. 4. Recent abscess. RECOMMENDATIONS: Troponin elevation likely type-2 OR from recent abscess and fever. The patient has no current symptoms suggesting angina. From my standpoint, we will continue conservative treatment. Continue antibiotic therapy. Add low-dose aspirin in addition to low-dose beta-russel therapy and statin treatment. This is an outpatient workup. We will be happy to follow Mr. Boyd as an outpatient. Otherwise, I have no further recommendations. Job ID: [id number]
--- NOTE | 2019-07-05 16:05 | CON ---
DATE OF CONSULTATION: 07/05/2019 REASON FOR CONSULTATION: Left groin infected lymphocele. 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 The patient developed inflammatory process in the left groin, which has been I and D'd by Dr. Ordaz. It appears to be an infected lymphocele. The patient has a MediPort in the right chest region and he has been admitted and is currently on antimicrobial therapy. He appears chronically ill, but in no acute distress. Denies headaches. No visual symptoms, sore throat, odynophagia, or dysphagia. No back pain. He had some dyspnea, which was due to volume overload, which has improved with diuretics. He has no abdominal pain. He has moderate pain in the left groin region, associated with inflammatory process. Voiding without difficulty and no diarrhea. The right 1st MPJ is inflamed and swollen, tender to palpation and he noticed one area of inflammatory nodule in the anterior left knee recently. PAST MEDICAL HISTORY: Includes: 1. Pancreatitis. 2. Hyperlipidemia. 3. Hypertension. 4. 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 5. MediPort placement, right chest wall. SOCIAL HISTORY: Never smoker. He is retired and used to work for [employer]. ALLERGIES: NONE. FAMILY HISTORY: Noncontributory. CURRENT MEDICATIONS: 1. P.r.n. medications. 2. Lipitor. 3. Toprol. 4. Zofran. 5. Zosyn. 6. Vancomycin. PHYSICAL EXAMINATION: VITAL SIGNS: T-max 99.2, blood pressure 120/60, pulse 99, respirations 20, O2 saturation 96 on 3L nasal cannula. SKIN: The area of inflammatory change with skin erythema around the right first MPJ. There is a small inflammatory nodule in the left anterior knee skin and then there is a groin lymphocele, which has been I and D'd with a negative pressure dressing over it. The port is accessed. The patient is voiding in the urinal. HEENT: Ocular movements conjugate. Oral cavity with numerous missing teeth with the remainder ones with quite a bit of decay and gum disease. NECK: Supple. No jugular vein distention or carotid bruits. LUNGS: Symmetric air entry. No crackles or wheezing. HEART: S1 and S2. Regular rate. No S3 or S4. No murmurs. ABDOMEN: Soft, not distended or tender. No ascites. No bladder distention. The left groin area with negative pressure dressing surrounding it, there is induration, which is moderate with mild erythema. GENITAL: Otherwise normal. EXTREMITIES: Pulses are 1+ in dorsalis pedis. Plantar response are flexor. NEUROLOGIC: Nonfocal including cognitive function. LABORATORY DATA: White cell count 14.7 down to 10.5, hemoglobin 8.9, platelets 183, 18% bands, now 24% bands. Sodium 140, creatinine 1.03. Lactic acid 1.8. Liver profile normal. Albumin 3.0 and globulin 2.8. Urinalysis with 0 to 3 wbc's. Microbiology with Staphylococcus species from the groin cultures, pending identification and susceptibility profile. The Gram stain showed a few gram-positive cocci in clusters. IMAGING DATA: There is an abdomen and pelvis CT, which demonstrated enlargement of a lobulated hypodense fluid attenuation collection in the left inguinal region and persistent lymphadenopathy with evidence of aortocaval and bilateral iliac chain lymphadenopathy and improvement of bilateral pleural effusions. There is a PET scan from earlier this month with evidence of viable lymphoma on both sides of the diaphragm. ASSESSMENT: T-cell lymphoma with 1 course of chemotherapy and now with what appears to be an infected lymphocele. May have had necrosis of the lymph node and then superinfection. The Staphylococcus species, possibly aureus or coagulase-negative Staph, the likely culprit. Discontinue Zosyn. Continue vancomycin until final identification and susceptibility results of the organism isolated. As long as he is not bacteremic, then should be able to be converted to oral antimicrobial therapy for discharge planning. He also probably has gout as well in the right MPJ. We will check uric acid. He may have a little nidus of Staphylococcal infection in the left anterior knee skin as well. Job ID: [id number]
[2019-07-05] MEDS: Atorvastatin Calcium 20 MG TAB PO SCH (20:57)
--- NOTE | 2019-07-05 23:15 | PDOC.HOSPP ---
- Subjective Encounter Date: 07/05/19 Encounter Time: 10:30 Subjective: cc: f/u for sepsis due to left groin abscess, postoperative I&D subjective: patient seen at bedside this morning. son at bedside. felt a little short of breath and had to sit up prior to my arrival. denies pain at surgical site. denies angina. nurse notes wound vac in place. noted drop in hemoglobin - Objective Vital Signs & Weight: Vital Signs (12 hours) Temp Pulse Pulse Resp BP BP BP 07/05/19 19:29 99.4 F 100 22 H 125/59 L 07/05/19 14:27 98 135/72 07/05/19 12:20 07/05/19 11:28 99.2 F 99 21 H 125/65 Pulse Ox 07/05/19 19:29 99 07/05/19 14:27 07/05/19 12:20 93 L 07/05/19 11:28 96 Weight Admit Weight 192 lb 0.362 oz Weight 192 lb 0.362 oz Result Diagrams: 07/05/19 04:37 07/05/19 04:37 Hospitalist ROS - Review of Systems Other: ROS: positive for dyspnea and orthopnea. pertinent positive per SUBJECTIVE; remainder ROS negative - Medication Medications: Active Medications Generic Name Dose Route Start Last Admin Trade Name Freq PRN Reason Stop Dose Admin Atorvastatin Calcium 20 mg 07/05/19 21:00 07/05/19 20:57 Lipitor PO 20 mg HS DANE Administration Vancomycin HCl 750 mg/ Sodium 250 mls @ 250 mls/hr 07/05/19 05:00 07/05/19 18 :42 Chloride IVPB 250 mls 0500,1700 DANE Administration Sodium Chloride 10 ml 07/05/19 09:00 07/05/19 20:58 Flush - Normal Saline IVF 10 ml Q12HR DANE Administration - Exam General Appearance: awake alert General - other findings: tachypneic Eye: PERRL, anicteric sclera ENT: normocephalic atraumatic, no oropharyngeal lesions Neck: supple Heart: RRR Heart - other findings: left parasternal border murmur Respiratory: no wheezes, no ronchi, normal chest expansion, tachypneic Respiratory - other findings: bibasilar rales Gastrointestinal: soft, non-tender, non-distended, normal bowel sounds Gastrointestinal - other findings: left groin wound vac Extremities: no cyanosis, no clubbing, no edema Skin - other findings: chest wall chemoport Neurological: cranial nerve grossly intact, no focal deficits Musculoskeletal: normal tone, normal strength Psychiatric: normal behavior, A&O x 3 Hosp A/P - Plan INTRAOPERATIVE MICROBIOLOGY: staph spp. blood cultures no growth to date Sepsis due to left groin abscess. s/p I&D 07/04/19. s/p wound vac 07/05/19. follow intraoperative cultures noted staph spp. consult ID. continue wound care. continue IV vancomycin. follow blood cultures. Left groin abscess. likely due to recent Lymph node biopsy Elevated troponin, likely due to Type 2 [place] from sepsis. cardiology consult. recent TTE with moderate aortic stenosis. Dyspnea, likely due to pulmonary edema from IVF for sepsis. start IV lasix. recent TTE noted hyponatremia, replete hypokalemia, replete hypomagnesmia, replete. check magnesium Tcell lymphoma. recent diagnosis. s/p recent chemotherapy about 2 weeks ago. diagnosed with recent LN biopsy. also underwent outpatient PET CT and had recent outpatient CT BM biopsy. generalized weakness and deconditioning. consult PT and OT DVT px: LMWH check AM labs code status: full code Dispo: continue inpatient monitoring
[2019-07-06 05:05] LABS: #Lymphocytes 0.3 thou/uL (1.20-3.40); #Monocytes 0.4 thou/uL (0.11-0.59); #Neutrophils 10.6 thou/uL (1.40-6.50); %Basophils 0.3 % (0.0-1.0); %Eosinophils 0.1 % (0.0-10.0); %Lymphocytes 2.3 % (21.0-51.0); %Monocytes 3.8 % (0.0-10.0); %Neutrophils 93.5 % (42.0-75.0); Hemoglobin 7.9 g/dL (14.0-18.0); Mean Corpuscular HGB CONC 33.8 g/dL (32.0-36.0); Mean Corpuscular Hemoglobin 29.9 pg (27.0-31.0); Mean Corpuscular Volume 88.4 fL (78.0-98.0); Mean Platelet Volume 7.2 fL (7.4-10.4); Platelet Count 181 thou/uL (130-400); RBC Distribution Width 13.6 % (11.5-14.5); Red Blood Cell (RBC) Count 2.63 mill/uL (4.70-6.10); White Blood Cell (WBC) Count 11.4 thou/uL (4.8-10.8)
[2019-07-06 05:22] LABS: Anion Gap 10 mmol/L (10-20); BUN (Urea Nitrogen) 15 mg/dL (8.4-25.7); Calc. Creatinine Clearance 82 mL/min (70-130); Calcium 7.2 mg/dL (7.8-10.44); Carbon Dioxide 23 mmol/L (23-31); Chloride 108 mmol/L (98-107); Estimated GFR-MDRD 79; Glucose 92 mg/dL (83-110); Sodium 138 mmol/L (136-145)
[2019-07-06 05:25] LABS: Vancomycin, Trough 13.7 ug/mL
[2019-07-06] MEDS: Vancomycin HCl 750 MG in Sodium Chloride 0.9% 250 ML 250 ML IVPB SCH ×2 (06:00→17:09)
[2019-07-06] MEDS: Aspirin 81 mg Enteric Coated Tablet PO SCH (10:01)
--- NOTE | 2019-07-06 11:59 | PDOC.HOSPP ---
- Subjective Encounter Date: 07/06/19 Encounter Time: 11:58 Subjective: cc: f/u for sepsis due to left groin abscess, postoperative I&D subjective: patient seen at bedside this morning. feels better. no further short of breath. denies pain in left groin site. denies fevers, chills, nausea, vomiting, abdominal pain. notes erythema at right hallux and left knee. nurse notes some home medications still need resumption. noted hpokalemia. - Objective Vital Signs & Weight: Vital Signs (12 hours) Temp Pulse Resp BP Pulse Ox 07/06/19 11:11 98.2 F 84 26 H 133/71 97 07/06/19 08:40 96 07/06/19 07:12 98.7 F 91 20 135/70 95 07/06/19 03:23 97.4 F L 89 20 132/71 99 Weight Admit Weight 192 lb 0.362 oz Weight 192 lb 0.362 oz Result Diagrams: 07/06/19 04:30 07/06/19 04:30 Hospitalist ROS - Review of Systems Other: ROS: pertinent positives per SUBJECTIVE; remainder ROS negative - Medication Medications: Active Medications Generic Name Dose Route Start Last Admin Trade Name Freq PRN Reason Stop Dose Admin Aspirin 81 mg 07/06/19 09:00 07/06/19 10:01 Ecotrin PO 81 mg DAILY DANE Administration Atorvastatin Calcium 20 mg 07/05/19 21:00 07/05/19 20:57 Lipitor PO 20 mg HS DANE Administration Vancomycin HCl 750 mg/ Sodium 250 mls @ 250 mls/hr 07/05/19 05:00 07/06/19 06 :00 Chloride IVPB 250 mls 0500,1700 DANE Administration Metoprolol Succinate 25 mg 07/06/19 09:00 07/06/19 10:01 Toprol Xl PO 25 mg DAILY DANE Administration Sodium Chloride 10 ml 07/05/19 09:00 07/06/19 10:01 Flush - Normal Saline IVF 10 ml Q12HR DANE Administration Hosp A/P - Plan - Exam General Appearance: awake alert oriented, calm, not in distress Eye: PERRL, anicteric sclera ENT: normocephalic atraumatic, no oropharyngeal lesions Neck: supple Heart: RRR Heart - other findings: left parasternal border murmur Respiratory: no wheezes, no ronchi, normal chest expansion, bibasilar rales Gastrointestinal: soft, non-tender, non-distended, normal bowel sounds Gastrointestinal - other findings: left groin wound vac with minimal drainage Extremities: no cyanosis, there is some erythema and inflammatory changes at hallux and left knee minimally tender. Skin - other findings: chest wall chemoport Neurological: cranial nerve grossly intact, no focal deficits Musculoskeletal: normal tone, normal strength Psychiatric: normal behavior, A&O x 3 INTRAOPERATIVE MICROBIOLOGY: staph aureus spp. blood cultures no growth to date Sepsis due to left groin abscess. s/p I&D 07/04/19. s/p wound vac 07/05/19. follow intraoperative cultures noted staph aureus spp and await sensitivity. ID following and continue IV vancomycin. continue wound care. blood cultures NGTD Left groin abscess. likely due to recent Lymph node biopsy. cultures show s.aureus spp and await sensitivity. continue IV vancomycin. Elevated troponin, likely due to Type 2 RI from sepsis. cardiology consult noted. recent TTE with moderate aortic stenosis. Dyspnea, improved. likely due to pulmonary edema from IVF for sepsis. continue lasix. recent TTE noted hyponatremia, repleted hypokalemia, replete and restart oral K-phos hypomagnesmia, repleted. Possible gout flare of right hallux and left knee. denies pain. restart allopurinol newly prescribed possibly for tumor lysis prevention. Tcell lymphoma. recent diagnosis. s/p recent chemotherapy about 2 weeks ago. diagnosed with recent LN biopsy. also underwent outpatient PET CT and had recent outpatient CT BM biopsy. generalized weakness and deconditioning. continue PT and OT DVT px: LMWH check AM labs code status: full code Dispo: continue inpatient monitoring. discharge planning home with [facility] and wound vac
--- NOTE | 2019-07-06 14:10 | PRG ---
DATE OF SERVICE: SUBJECTIVE: Mr. Boyd has no complaints today. He had wound VAC placed yesterday. OBJECTIVE: His wound VAC dressings are clean, dry, and intact. ASSESSMENT: Postoperative wound infection to lymph node biopsy site. PLAN: He can be discharged at any time with outpatient wound VAC. He does need to see me back in the office in a few weeks after discharge. Job ID: [id number]
[2019-07-06] MEDS ORDERED: Atorvastatin Calcium 10 MG TAB PO SCH (21:00)
[2019-07-06] MEDS ORDERED: Allopurinol 100 MG TAB PO SCH (21:00)
[2019-07-06] MEDS: Magnesium Oxide 400 MG TAB PO SCH (21:38)
[2019-07-06] MEDS: Atorvastatin Calcium 20 MG TAB PO SCH (21:40)
[2019-07-07 04:43] LABS: #Eosinphils 0.1 thou/uL (0.0-0.7); #Lymphocytes 0.3 thou/uL (1.20-3.40); #Monocytes 0.5 thou/uL (0.11-0.59); #Neutrophils 8.1 thou/uL (1.40-6.50); %Basophils 0.4 % (0.0-1.0); %Eosinophils 0.9 % (0.0-10.0); %Lymphocytes 3.7 % (21.0-51.0); %Monocytes 5.2 % (0.0-10.0); %Neutrophils 89.7 % (42.0-75.0); Hemoglobin 8.6 g/dL (14.0-18.0); Mean Corpuscular HGB CONC 35.4 g/dL (32.0-36.0); Mean Corpuscular Hemoglobin 31.4 pg (27.0-31.0); Mean Corpuscular Volume 88.6 fL (78.0-98.0); Platelet Count 202 thou/uL (130-400); RBC Distribution Width 13.6 % (11.5-14.5); Red Blood Cell (RBC) Count 2.74 mill/uL (4.70-6.10)
[2019-07-07 05:05] LABS: Anion Gap 12 mmol/L (10-20); BUN (Urea Nitrogen) 17 mg/dL (8.4-25.7); Calc. Creatinine Clearance 88 mL/min (70-130); Calcium 7.9 mg/dL (7.8-10.44); Carbon Dioxide 24 mmol/L (23-31); Chloride 107 mmol/L (98-107); Estimated GFR-MDRD 85; Glucose 94 mg/dL (83-110); Magnesium 1.5 mg/dL (1.6-2.6); Potassium 3.2 mmol/L (3.5-5.1); Sodium 140 mmol/L (136-145)
[2019-07-07] MEDS: Vancomycin HCl 750 MG in Sodium Chloride 0.9% 250 ML 250 ML IVPB SCH ×2 (05:05→20:12)
[2019-07-07] MEDS ORDERED: Furosemide 40 MG TAB PO SCH (07:30)
[2019-07-07] MEDS: Magnesium Oxide 400 MG TAB PO SCH (08:41)
[2019-07-07] MEDS: Aspirin 81 mg Enteric Coated Tablet PO SCH (08:41)
[2019-07-07 08:43] VITALS: BP 155/78; TEMP 97.8
[2019-07-07] MEDS ORDERED: PHOS-NAK 1 PKT PACK PO SCH (09:00)
[2019-07-07] MEDS ORDERED: Folic Acid 1 MG TAB PO SCH (09:00)
[2019-07-07] MEDS ORDERED: Lisinopril 10 MG TAB PO SCH (09:00)
--- NOTE | 2019-07-07 13:50 | PDOC.HOSPP ---
- Subjective Encounter Date: 07/07/19 Encounter Time: 13:50 - Objective Vital Signs & Weight: Vital Signs (12 hours) Temp Pulse Resp BP Pulse Ox 07/07/19 08:43 95 07/07/19 08:42 97.8 F 87 18 155/78 H 95 07/07/19 04:05 98.3 F 98 20 147/72 H 94 L Weight Admit Weight 192 lb 0.362 oz Weight 192 lb 0.362 oz I&O: 07/06/19 07/07/19 07/08/19 06:59 06:59 06:59 Intake Total 1040 Output Total 1200 Balance -160 Result Diagrams: 07/07/19 04:25 07/07/19 04:25 Hospitalist ROS - Medication Medications: Active Medications Generic Name Dose Route Start Last Admin Trade Name Freq PRN Reason Stop Dose Admin Allopurinol 200 mg 07/06/19 21:00 07/06/19 21:38 Zyloprim PO 200 mg QPM DANE Administration Aspirin 81 mg 07/06/19 09:00 07/07/19 08:41 Ecotrin PO 81 mg DAILY DANE Administration Atorvastatin Calcium 20 mg 07/05/19 21:00 07/06/19 21:40 Lipitor PO 20 mg HS DANE Administration Atorvastatin Calcium 10 mg 07/06/19 21:00 07/06/19 21:40 Lipitor PO 10 mg HS DANE Administration Folic Acid 1 mg 07/07/19 09:00 07/07/19 08:41 Folvite PO 1 mg DAILY DANE Administration Furosemide 40 mg 07/07/19 07:30 07/07/19 08:41 Lasix PO 40 mg DAILY-AC DANE Administration Vancomycin HCl 750 mg/ Sodium 250 mls @ 250 mls/hr 07/05/19 05:00 07/07/19 05 :05 Chloride IVPB 250 mls 0500,1700 DANE Administration Lisinopril 20 mg 07/07/19 09:00 07/07/19 08:40 Zestril PO 20 mg DAILY DANE Administration Magnesium Oxide 400 mg 07/06/19 21:00 07/07/19 08:41 Magnesium Oxide PO 400 mg BID DANE Administration Metoprolol Succinate 25 mg 07/06/19 09:00 07/07/19 08:41 Toprol Xl PO 25 mg DAILY DANE Administration Miscellaneous Medication 1 pkt 07/07/19 09:00 07/07/19 08:40 Phos-Nak PO 1 pkt DAILY DANE Administration Sodium Chloride 10 ml 07/05/19 09:00 07/07/19 08:41 Flush - Normal Saline IVF 10 ml Q12HR DANE Administration Hosp A/P - Plan - Exam General Appearance: awake alert oriented, calm, not in distress Eye: PERRL, anicteric sclera ENT: normocephalic atraumatic, no oropharyngeal lesions Neck: supple Heart: RRR Heart - other findings: left parasternal border murmur Respiratory: no wheezes, no ronchi, normal chest expansion, bibasilar rales Gastrointestinal: soft, non-tender, non-distended, normal bowel sounds Gastrointestinal - other findings: left groin wound vac with minimal drainage Extremities: no cyanosis, there is some erythema and inflammatory changes at hallux and left knee minimally tender. Skin - other findings: chest wall chemoport Neurological: cranial nerve grossly intact, no focal deficits Musculoskeletal: normal tone, normal strength Psychiatric: normal behavior, A&O x 3 INTRAOPERATIVE MICROBIOLOGY: staph aureus spp. blood cultures no growth to date Sepsis due to left groin abscess. s/p I&D 07/04/19. s/p wound vac 07/05/19. follow intraoperative cultures noted staph aureus spp and await sensitivity. ID following and continue IV vancomycin. continue wound care. blood cultures NGTD Left groin abscess. likely due to recent Lymph node biopsy. cultures show s.aureus spp and await sensitivity. continue IV vancomycin. Elevated troponin, likely due to Type 2 [place] from sepsis. cardiology consult noted. recent TTE with moderate aortic stenosis. Dyspnea, improved. likely due to pulmonary edema from IVF for sepsis. continue lasix. recent TTE noted hyponatremia, repleted hypokalemia, replete and restart oral K-phos hypomagnesmia, repleted. Possible gout flare of right hallux and left knee. denies pain. restart allopurinol newly prescribed possibly for tumor lysis prevention. Tcell lymphoma. recent diagnosis. s/p recent chemotherapy about 2 weeks ago. diagnosed with recent LN biopsy. also underwent outpatient PET CT and had recent outpatient CT BM biopsy. generalized weakness and deconditioning. continue PT and OT DVT px: LMWH check AM labs code status: full code Dispo: continue inpatient monitoring. discharge planning home with [facility] and wound vac
== END 2019-07-07 19:28 | disposition home health service (06) | DRG 856 ==
LOC: ERS 16:18 → 2NO 18:31
PROVIDERS: ADMIT Hospitalist; ATTEND Hospitalist
PROC: 079 Lymphatic and Hemic Systems, Drainage (ICD-10-PCS; principal; 2019-07-04)
DX: T81.49XA Infection following a procedure, other surgical site, initial encounter (principal); A41.9 Sepsis, unspecified organism; I21.A1 Myocardial infarction type 2; J81.0 Acute pulmonary edema; L02.214 Cutaneous abscess of groin; C84.A5 Cutaneous T-cell lymphoma, unspecified, lymph nodes of inguinal region and lower limb; E87.1 Hypo-osmolality and hyponatremia; E87.6 Hypokalemia; E78.5 Hyperlipidemia, unspecified; E83.42 Hypomagnesemia; D64.9 Anemia, unspecified; E11.9 Type 2 diabetes mellitus without complications; I35.0 Nonrheumatic aortic (valve) stenosis; B95.61 Methicillin susceptible Staphylococcus aureus infection as the cause of diseases classified elsewhere; Y84.8 Other medical procedures as the cause of abnormal reaction of the patient, or of later complication, without mention of misadventure at the time of the procedure; Z90.49 Acquired absence of other specified parts of digestive tract
CPT/HCPCS: 36415; 71045; 74177; 80048; 80053; 80202; 81003; 81015; 82553; 83605; 83735; 84484; 84550; 85025; 85610; 85730; 86850; 86900; 86901; 87040; 87070; 87077; 87186; 87205; 87804; 93005; 94760; 96360; 96361; 96365; 96366; 96368; 96375; J0171; J0692; J1940; J2001; J2405; J2543; J2704; J3010; J3370; J3475; J3490; J7050; Q9967; S0020

== ENCOUNTER 2019-08-22 10:01 | Outpatient (CLI) | payer MEDICARE, BC ==
--- NOTE | 2019-08-22 10:57 | ULT ---
LEFT UPPER EXTREMITY VENOUS ULTRASOUND WITH DOPPLER: HISTORY: Edema. COMPARISON: None. TECHNIQUE: Grayscale, color flow, Doppler imaging and spectral wave analysis performed of the left upper extremi ty venous system. FINDINGS: There is compressibility and flow in the internal jugular vein. There is flow in the subclavian vein. There is compressibility and flow in the axillary vein, cephalic vein, brachial vein, radial vein and ulnar vein. There is also compressibility and flow in the basilic vein. There is a small caliber vein at the level of the antecubital fossa which is adjacent to the vascular bundle associated with the brachial artery and vein. This small vein does not demonstrate compressibility. There is evidence of echogenic material and lack of flow. There is evidence for thro mbosis of a small caliber deep vein. The vein is followed in a cephalad direction appears to dive 2 soft tissues. The exact connection with the remainder the venous system cannot be demonstrated. IMPRESSION: Thrombus involving a small caliber deep vein of the left upper extremity. Results of the study discussed with Dr. Izquierdo, via [facility] to 06/29/2020 10:53 AM. Code CR Transcribed Date/Time: 08/22/2019 11:02 AM
== END 2019-08-22 10:02 | disposition home or self-care (01) ==
LOC: ULT 10:01
PROVIDERS: ATTEND Internal Medicine Hematology & Oncology
DX: M79.602 Pain in left arm (principal); R60.0 Localized edema; C84.41 Peripheral T-cell lymphoma, not elsewhere classified, lymph nodes of head, face, and neck; E83.52 Hypercalcemia; I82.622 Acute embolism and thrombosis of deep veins of left upper extremity
CPT/HCPCS: 80053; 82248; 83615; 84100; 84550

== ENCOUNTER 2019-09-04 08:03 | Outpatient (CLI) | payer MEDICARE, BC ==
--- NOTE | 2019-09-04 10:24 | PET ---
EXAM: PET/CT HISTORY: Lymphoma TECHNIQUE: PET scanning with CT attenuation correction was performed from the vertex of the brain to the proxima l thighs following the intravenous administration of 12.5 millicuries [id number]. COMPARISON: PET/CT dated June 15, 2019 FINDINGS: Biodistribution:The biodistribution for the exam appears acceptable. Head and neck: There is appropriate background activity within the brain. Overall the extent of the h ypermetabolic lymphadenopathy involving the head neck region has improved. The number of hypermetabolic lymph nodes has diminished from the prior examination. However, there has been interva l development of hypermetabolic activity involving the palatine tonsils bilaterally with a peak activity of 6.11 and a mean activity of 4.01. There is also new hypermetabolic activity involving a m ildly enlarged right submandibular lymph node with a peak activity of 4.08 and a mean activity of 3.19. No associated hypermetabolic activity was seen within this lymph node on the prior examination. There is also a new small subcentimeter lymph node within the superficial lobe of the right parotid gland with a peak activity of 4.03 and a mean activity of 3.33. An index lymph node within th e left level 3 location previously measured 1.6 cm, now measures 1.2 cm. The peak activity associated with this lymph node on the current examination is 14.01 with a mean activity 8.25. Overal l the mean activity is diminished from 8.57 from the previous exam. The extent of the hypermetabolic lymphadenopathy involving the right aspect of the neck has significantly decreased in number and hypermetabolic uptake. The extent of the hypermetabolic activity involving the left neck and left supraclavicular region has diminished. Thorax: The hypermetabolic activity involving both axillary region has improved. The index lymph node within the left axilla previously measured 3.7 cm now measures 2.5 cm with a peak activity of 16.10 mean activity of 13.78. Previous mean activity was 12.02. Mild hypermetabolic activity is now s een associated with an AP window lymph node with a peak activity of 3.36 mean activity of 3.03. Numerous scattered calcified lymph nodes of the mediastinum and hilar region are similar appearing. T here is a new small left pleural effusion. There are patchy areas of peripheral airspace opacity within the right upper lobe without associated hypermetabolic uptake. There are areas of subsegmental volume loss seen involving the lung bases. Abdomen and pelvis: There is expected background activity within the GI and systems.The extent of the hypermetabolic lymphadenopathy involving the retroperitoneum has decreased in extent of hypermetabolic uptake and size of the lymph nodes. A left periaortic lymph node previously measuring 1.8 cm, now measures 1.3 cm with a peak activity of 6.24 and a mean activity of 4.8. The previous peak activity was 9.69 mean activity of 6.94. There is slight increase hypermetabolic activity involv ing a few peripancreatic lymph nodes. One seen just superior to the pancreatic head has a peak activity of 4.04 and a mean activity of 3.17 where only mild metabolic activity was associated with t his lymph node on the prior exam. There is now increase hypermetabolic activity involving portacaval lymph node with a mean activity of 4.328 and a peak activity of 5.63. There is been extens mariam improvement in the hypermetabolic uptake and size of the abnormal iliac chain lymph nodes, left greater than right. There is residual mildly prominent hypermetabolic lymph node seen adjacent to the left external iliac chain with a peak activity of 5.42 mean activity of 4.32. Previous peak activity was 15.89 with a mean activity of 11.5. There is been improvement in the hypermetabolic upta ke in size of the inguinal lymph nodes bilaterally. There is some mild residual activity involving the grouping of left inguinal lymph nodes with a peak activity of 3.82 and mean activity 2.91. Previo usly the peak activity was 7.38 with a mean activity of 5.3. Osseous structures and skin: Mild hypermetabolic uptake is seen diffusely throughout the bone marrow of the thoracolumbar spine as well as the pelvis and proximal femurs. No hypermetabolic skin lesion is identified. IMPRESSION: Abnormal PET/CT 1. Overall improvement in the extensive hypermetabolic activity and size of the diffuse lymphadenopat hy involving the head and neck, thorax and abdomen and pelvic regions. A few lymph node stations demonstrate new or increased hypermetabolic activity within the palatine tonsils, right parotid, righ t submandibular, AP window, peripancreatic and portacaval lymph node regions. Continued follow-up is recommended. 2. New areas of patchy peripheral airspace opacity within the right upper lobe without associated hyp ermetabolic uptake may reflect areas of subsegmental volume loss; however, mild peripheral pneumonitis is of concern. Recommend appropriate therapy and CT follow-up to resolution. 3. New small left pleural effusion without associated hypermetabolic activity. 4. Mild hypermetabolic activity seen diffusely throughout the marrow space is likely related to marro w stimulation or marrow response to therapy. Continued follow-up is recommended.
== END 2019-09-04 08:04 | disposition home or self-care (01) ==
LOC: PET 08:03
PROVIDERS: ATTEND Internal Medicine Hematology & Oncology
DX: C85.90 Non-Hodgkin lymphoma, unspecified, unspecified site (principal); J90 Pleural effusion, not elsewhere classified; R91.8 Other nonspecific abnormal finding of lung field; R59.0 Localized enlarged lymph nodes
CPT/HCPCS: 78815; A9552

== ENCOUNTER 2019-12-28 08:13 | Outpatient (CLI) | payer MEDICARE, BC ==
--- NOTE | 2019-12-28 12:31 | PET ---
EXAM: PET CT skull to mid thigh COMPARISON: 09/04/2019 HISTORY: T-cell lymphoma TECHNIQUE: A PET/CT was performed from the apex of the skull to the mid thigh after administration of 12.1 millicuries of F-18 FDG. Evaluation was performed on a [employer] workstation. FINDINGS: NECK: Hypermetabolic activity is seen in the bilateral palatine tonsils. Extensive worsening hypermet abolic activity is seen within numerous enlarged bilateral cervical lymph nodes (max SUV value 21.0). Hypermetabolic activity is within the parotid glands likely represent intraparotid enlarged ly mph nodes. Worsening hypermetabolic enlarging supraclavicular lymph nodes are seen (max SUV value of 17.0). CHEST: Worsening hypermetabolic masses are seen along both chest gloria which may represent superficia l axillary lymph nodes. Maximal SUV value of these masses is 27.1. There is also significant enlargement and worsening of the hypermetabolic activity in the axillary lymph nodes. New areas of hy permetabolic activity are seen along the undersurface of the right anterior ribs. This appears to be external to the lung parenchyma and could represent hypermetabolic activity within internal mammar y lymph nodes. ABDOMEN/PELVIS: Enlarged attending worsening hypermetabolic activity is seen in the retroperitoneum a nd philippe hepatis (max SUV value of 18.3). Enlarged in worsening hypermetabolic activity is seen along both pelvic sidewalls and in both inguinal regions (max SUV value of 22.5). SKELETON: No areas of hypermetabolic activity CT images used for attenuation correction show bilateral renal cysts and atherosclerotic calcificatio ns.. IMPRESSION: Extensive diffuse worsening of hypermetabolic activity in the neck, chest, abdomen, and p jayden.
== END 2019-12-28 08:14 | disposition home or self-care (01) ==
LOC: PET 08:13
PROVIDERS: ATTEND Internal Medicine Hematology & Oncology
DX: C84.40 Peripheral T-cell lymphoma, not elsewhere classified, unspecified site (principal)
CPT/HCPCS: 78815; A9552; 80053; 82248; 83615; 84100; 84550

== ENCOUNTER 2020-01-22 08:15 | Day surgery (SDC) | payer MEDICARE, BC ==
[2020-01-22] MEDS ORDERED: Acetaminophen 500 MG TAB PO SCH (08:45)
[2020-01-22] MEDS ORDERED: diphenhydrAMINE 25 MG CAP PO SCH (08:45)
[2020-01-22] MEDS ORDERED: Sodium Chloride 0.9% 20 ML ONE (09:31)
[2020-01-22 12:17] VITALS: BP 142/72; TEMP 98.3
== END 2020-01-22 13:27 | disposition home or self-care (01) ==
LOC: ONC/OP 08:15
PROVIDERS: ATTEND Internal Medicine Hematology & Oncology
PROC: 30233R1 Transfusion of Nonautologous Platelets into Peripheral Vein, Percutaneous Approach (ICD-10-PCS; principal; 2020-01-22)
PROC: 30233N1 Transfusion of Nonautologous Red Blood Cells into Peripheral Vein, Percutaneous Approach (ICD-10-PCS; 2020-01-22)
DX: D64.9 Anemia, unspecified (principal); D69.6 Thrombocytopenia, unspecified
CPT/HCPCS: 36430; 86850; 86900; 86901; J1642; P9016; P9035; Q0163

== ENCOUNTER 2020-01-27 19:59 | Inpatient (IN) | payer MEDICARE, BC ==
--- NOTE | 2020-01-27 20:35 | RAD ---
Chest one view HISTORY: Dyspnea. Weakness. COMPARISON: 07/04/2019. FINDINGS: Cardiac silhouette is unremarkable. Pulmonary vasculature is upper limits of normal and acc entuated by shallow inspiration. Subtle scattered areas of linear parenchymal opacity are similar in appearance to the prior exam. Mediastinum is midline with aortic calcification. Right internal jugular Port-A-Cath remains in place . No evidence of pneumothorax IMPRESSION : Chronic-type findings are stable.
[2020-01-27 21:03] LABS: Hemoglobin 9.5 g/dL (14.0-18.0); Mean Corpuscular HGB CONC 32.8 g/dL (32.0-36.0); Mean Corpuscular Hemoglobin 29.1 pg (27.0-31.0); Mean Corpuscular Volume 88.5 fL (78.0-98.0); Mean Platelet Volume 9.7 fL (7.4-10.4); Platelet Count 100 thou/uL (130-400); RBC Distribution Width 16.6 % (11.5-14.5); Red Blood Cell (RBC) Count 3.27 mill/uL (4.70-6.10); White Blood Cell (WBC) Count 18.2 thou/uL (4.8-10.8)
[2020-01-27 21:06] LABS: ALT (SGPT) 11 U/L (8-55); AST (SGOT) 23 U/L (5-34); Albumin 3.5 g/dL (3.4-4.8); Alkaline Phosphatase 115 U/L (40-110); Anion Gap 9 mmol/L (10-20); BUN (Urea Nitrogen) 25 mg/dL (8.4-25.7); Bilirubin, Total 0.5 mg/dL (0.2-1.2); Calc. Creatinine Clearance 0 mL/min (70-130); Carbon Dioxide 33 mmol/L (23-31); Chloride 100 mmol/L (98-107); Estimated GFR-MDRD 52; Globulin 2.3 g/dL (2.4-3.5); Glucose 113 mg/dL (83-110); Lipase 7 U/L (8-78); Potassium 3.7 mmol/L (3.5-5.1); Protein, Total 5.8 g/dL (5.8-8.1); Sodium 138 mmol/L (136-145)
[2020-01-27 21:11] LABS: Calcium 16.8 mg/dL (7.8-10.44)
[2020-01-27 21:29] LABS: CKMB 1.6 ng/mL (0-6.6)
[2020-01-27 21:35] LABS: Bacteria/HPF None Seen HPF (None Seen); Bilirubin Negative (Negative); Blood, Urine Negative (Negative); Clarity Clear (Clear); Glucose, Urine (Dipstick) Normal (Negative); Ketone, Urine Negative (Negative); Leukocyte Negative Leu/uL (Negative); Nitrite Negative (Negative); Protein, Urine (Dipstick) 30 mg/dL (Neg-Trace); RBC/HPF 0-3 HPF (0-3); Specific Gravity, Urine 1.009 (1.002-1.036); Squamous Epithelial None Seen HPF (0-3); Urobilinogen Normal mg/dL (Less than 2); pH, Urine 6.5 (5.0-9.0)
--- NOTE | 2020-01-27 21:36 | CT ---
CT head noncontrast HISTORY: Weakness. FINDINGS: There is no evidence of acute intracranial hemorrhage or infarct. The ventricles appear normal in size, shape and position. Mild diffuse cortical atrophy and chronic ischemic small vessel disease. There is no mass effect or shift of midline structures. Mucosal thickening is evident within the left maxillary sinus and right sphenoid sinus. IMPRESSION : No acute intracranial abnormalities are demonstrated.
[2020-01-27 21:38] LABS: MDiff Complete? YES; Ovalocytes SLIGHT = 2-5 cells (100X) (0-1/hpf); Platelet Morphology Comment Appears Decreased
[2020-01-27] MEDS ORDERED: Aspirin Chewable 81 MG TAB ONE (22:00)
[2020-01-27] MEDS ORDERED: Calcitonin,Salmon,Synthetic 200 UNITS/ML MDV SC SCH (22:15)
[2020-01-27] MEDS ORDERED: Senokot S 8.6-50 MG TAB PO PRN (22:25)
[2020-01-27] MEDS ORDERED: Acetaminophen 325 MG TAB PO PRN (22:25)
[2020-01-27] MEDS: Sodium Chloride 0.9% 1,000 ML IV SCH (22:30)
[2020-01-27 23:43] LABS: Lactic Acid 1.9 mmol/L (0.5-2.2)
[2020-01-28 00:05] LABS: Troponin I 0.349 ng/mL (< 0.028)
--- NOTE | 2020-01-28 00:28 | HP ---
CHIEF COMPLAINT: Weakness, decreased appetite, less oral intake, more tired than usual. PRIMARY CARE PHYSICIAN: Dr. Dave and since he has left town and has closed his practice, the patient reports he does not have a new one. ONCOLOGIST: Dr. Izquierdo and he also sees one in [facility]. HISTORY OF PRESENT ILLNESS: This is a very pleasant 79-year-old man, who reported to the emergency room today via EMS for generalized weakness for the last several days. He is weak enough where he is having a hard time getting up and moving around, feels like the weakness is in his legs. 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 He states he was due to restart it in the near future. He denies any fever, chills, vomiting, abdominal pain, shortness of breath, chest pain. He does report that is not as hungry as normal. He is feeling more tired than usual and overall just feels weak. He was evaluated in the emergency room and found to have high white count of 18.2, hemoglobin 9.5, hematocrit at 29. Urine with protein and white blood cells. CT of the brain was no acute findings. His troponin was greater than 0.321, lipase is 7, carbon dioxide 33, gap is 9, creatinine is 1.34, glucose 113, calcium; however, was 16.8. BNP was 547. Lactic acid was 2.6. Chest x-ray showed chronic findings, nothing acute. He was given 1 L of fluid and then 200 mL/hour after that and also given calcitonin 4 units/kg. He will be admitted to the Oncology floor for further management. REVIEW OF SYSTEMS: Denies chills. Denies fever. Reports generalized weakness. Does not endorse any falls. He reports that he is generally weak, mostly in his legs. He is a little pleasantly confused. All systems are reviewed and are negative unless mentioned in the HPI. PAST MEDICAL HISTORY: Pertinent for, has had a history of pancreatitis, T-cell lymphoma, hyperlipidemia, hypertension. PAST SURGICAL HISTORY: Has a MediPort to the right upper chest, has had a cholecystectomy. PSYCHIATRIC HISTORY: None. SOCIAL HISTORY: Lives with his son. Denies any alcohol or drug. No smoking history. ALLERGIES: NONE. CURRENT MEDICATIONS: Per the ER system, they are listed as none, although they were sitting on the counter. Our system has; 1. Allopurinol 200 mg p.o. q.p.m. 2. Folic acid 1 mg p.o. daily. 3. Lisinopril 20 mg p.o. daily. 4. Mag-Ox 400 mg p.o. b.i.d. 5. PHOS-NaK one pack p.o. daily. 6. Zocor 20 mg p.o. at bedtime. 7. Aspirin 81 mg p.o. daily. 8. Furosemide 40 mg p.o. daily. 9. Metoprolol 25 mg p.o. daily, these need to be verified. PHYSICAL EXAMINATION: VITAL SIGNS: Blood pressure is 138/72, pulse is 81, respiratory rate is 17, temperature is 98.3, pO2 sats are 97% on 2 L. GENERAL: He is alert and oriented to self, knows that he was brought to the emergency room. He appears fatigued, little pale, nontoxic. HEENT: Head is atraumatic and normocephalic. Eyes, pupils are equally round and reactive to light. Extraocular muscles are intact. ENT, mouth exam is normal. Mucous membranes are moist. NECK: Normal range of motion. Trachea is midline. RESPIRATORY/CHEST: Breath sounds are clear. Chest expansion is equal. He has a MediPort in the right upper chest. CARDIOVASCULAR: Regular rate and rhythm. Heart sounds are normal. ABDOMEN: Nontender. Bowel sounds are heard. BACK: Normal range of motion. No tenderness. EXTREMITIES: Upper extremity, normal range of motion. Motor strength is normal. Lower extremity; motor strength is normal. Pedal pulses. NEURO: The patient is alert and oriented to person and place. He has good strength to upper extremity, but has a hard time lifting either leg off the bed. SKIN: Warm, dry, normal in color. PLAN AND ASSESSMENT: 1. Hypercalcemia. He was given a dose of calcitonin in the emergency room, given fluids. We will continue this. We will recheck his calcium in the a.m. 2. Elevated troponin without any chest pain. We will trend these. 3. Lactic acidosis, was given of fluids. We will recheck this, last value was 2.6. 4. Generalized weakness. Certainly due to the lymphoma diagnosis, we will have PT/OT, evaluate. We will ask Dr. Izquierdo to consult. Hopefully, he will feel better once his calcium is closer to normal. 5. Hyperlipidemia. We will restart his home medication. 6. Case discussed with Dr. Bridges, who agrees with plan. 7. Deep venous thrombosis and gastrointestinal prophylaxis started. Job ID: [id number]
[2020-01-28 03:20] LABS: Troponin I 0.298 ng/mL (< 0.028)
[2020-01-28] MEDS: Sodium Chloride 0.9% 1,000 ML IV SCH ×5 (05:52→20:44)
[2020-01-28 06:28] LABS: Hemoglobin 8.6 g/dL (14.0-18.0); Mean Corpuscular HGB CONC 31.6 g/dL (32.0-36.0); Mean Corpuscular Volume 88.6 fL (78.0-98.0); Mean Platelet Volume 9.5 fL (7.4-10.4); Platelet Count 97 thou/uL (130-400); RBC Distribution Width 16.7 % (11.5-14.5); Red Blood Cell (RBC) Count 3.07 mill/uL (4.70-6.10); White Blood Cell (WBC) Count 15.5 thou/uL (4.8-10.8)
[2020-01-28 06:29] LABS: ALT (SGPT) 11 U/L (8-55); AST (SGOT) 22 U/L (5-34); Albumin 3.3 g/dL (3.4-4.8); Alkaline Phosphatase 108 U/L (40-110); Anion Gap 8 mmol/L (10-20); BUN (Urea Nitrogen) 22 mg/dL (8.4-25.7); Bilirubin, Total 0.3 mg/dL (0.2-1.2); Calc. Creatinine Clearance 0 mL/min (70-130); Carbon Dioxide 33 mmol/L (23-31); Chloride 105 mmol/L (98-107); Estimated GFR-MDRD 54; Globulin 2.5 g/dL (2.4-3.5); Glucose 109 mg/dL (83-110); Potassium 3.7 mmol/L (3.5-5.1); Protein, Total 5.8 g/dL (5.8-8.1); Sodium 142 mmol/L (136-145)
[2020-01-28 06:30] LABS: Band 8 % (5-11); Hypochromia SLIGHT = 6-15 cells (100X) (0-5/hpf); Lymphocytes 1 % (21-51); MDiff Complete? YES; Monocytes 17 % (0-10); Myelocyte 2 % (0-0); Neutrophil 72 % (42-75); Platelet Morphology Comment Appears Decreased
[2020-01-28 06:36] LABS: Calcium 15.9 mg/dL (7.8-10.44)
[2020-01-28] MEDS ORDERED: Sodium Chloride 0.65% Nasal 44 ML BOT EA NARE PRN (08:42)
[2020-01-28] MEDS ORDERED: Diabetic Tussin 200 MG/10 ML UDCUP PO PRN (08:42)
[2020-01-28] MEDS ORDERED: Loratadine 10 MG TAB PO PRN (08:42)
[2020-01-28] MEDS ORDERED: HYDROcodone/Acetaminophen 5/325 mg Tablet PO PRN (08:42)
[2020-01-28] MEDS ORDERED: Loperamide HCl 2 MG CAP PO PRN (08:42)
[2020-01-28] MEDS ORDERED: Zolpidem Tartrate 5 MG TAB PO PRN (08:42)
[2020-01-28] MEDS ORDERED: Acetaminophen 500 MG TAB PO PRN (08:42)
[2020-01-28] MEDS ORDERED: Cepastat Lozenges 1 LOZ PO PRN (08:42)
[2020-01-28] MEDS ORDERED: Ondansetron PF 4 MG/2 ML Vial IVP PRN (08:42)
[2020-01-28] MEDS ORDERED: Ondansetron ODT 4 MG TAB SL PRN (08:42)
[2020-01-28] MEDS ORDERED: hydrALAZINE 20 MG/ML VIAL SLOW IVP PRN (08:42)
[2020-01-28] MEDS: Famotidine 20 MG TAB PO SCH ×2 (09:28→20:43)
--- NOTE | 2020-01-28 12:31 | PDOC.HOSPP ---
- Subjective Encounter Date: 01/28/20 Encounter Time: 11:00 Subjective: Patient seen and examined in the emergency room, patient has no new complaint, patient is feeling overall weak, patient is on room air, he does not have any shortness of breath, he is saturating 97% - Objective Vital Signs & Weight: Vital Signs (12 hours) Temp Pulse Resp BP Pulse Ox 01/28/20 08:00 97.9 F 75 22 H 137/77 97 Result Diagrams: 01/28/20 05:57 01/28/20 05:57 Radiology Reviewed by me: Yes EKG Reviewed by me: Yes Hospitalist ROS - Review of Systems Constitutional: reports: weakness, malaise. denies: fever, chills, sweats, other ENT: denies: ear pain, ear discharge, nose pain, nose discharge, nose congestion , mouth pain, mouth swelling, throat pain, throat swelling, other Respiratory: denies: cough, dry, shortness of breath, hemoptysis, SOB with excertion, pleuritic pain, sputum, wheezing, other Cardiovascular: denies: chest pain, palpitations, orthopnea, paroxysmal noc. dyspnea, edema, light headedness, other Gastrointestinal: denies: nausea, vomiting, abdominal pain, diarrhea, constipation, melena, hematochezia, other Genitourinary: denies: dysuria, frequency, incontinence, hematuria, retention, other Musculoskeletal: denies: neck pain, shoulder pain, arm pain, back pain, hand pain, leg pain, foot pain, other - Medication Medications: Active Medications Generic Name Dose Route Start Last Admin Trade Name Freq PRN Reason Stop Dose Admin Famotidine 20 mg 01/28/20 09:00 01/28/20 09:28 Pepcid PO 20 mg BID DANE Administration Sodium Chloride 1,000 mls @ 200 mls/hr 01/27/20 22:30 01/28/20 09:28 Normal Saline 0.9% IV 1,000 mls .Q5H DANE Administration - Exam General Appearance: NAD, awake alert General - other findings: Chronically ill Eye: PERRL, anicteric sclera ENT: normocephalic atraumatic, no oropharyngeal lesions Neck: supple, symmetric, no JVD Heart: RRR, murmur present Heart - other findings: Systolic murmur over aortic area Respiratory: CTAB, no wheezes, no rales, no ronchi Respiratory - other findings: Mediport in place Gastrointestinal: soft, non-tender, non-distended, normal bowel sounds Extremities: no cyanosis, no clubbing, no edema Skin: normal turgor, no lesions Neurological: no focal deficits Musculoskeletal: normal tone, normal strength Psychiatric: normal affect, normal behavior Hosp A/P - Plan old records reviewed/req Assessment Symptomatic hypercalcemia likely due to underlying lymphoma Acute kidney injury Dehydration 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
[2020-01-28 14:45] VITALS: BMI 25.5
[2020-01-28] MEDS: methylPREDNISolone Sod Succ 40 MG VIAL IVP SCH ×2 (15:33→20:43)
[2020-01-28] MEDS ORDERED: Zoledronic Acid 4 MG in Sodium Chloride 0.9% 100 ML IVPB SCH (15:45)
--- NOTE | 2020-01-28 19:38 | CON ---
DATE OF CONSULTATION: REASON FOR CONSULT: T-cell lymphoma. HISTORY OF PRESENT ILLNESS: Mr. Boyd is a 79-year-old gentleman who is undergoing treatment for T-cell lymphoma at [facility]. He completed 6 cycles of chemotherapy here but did not get a complete remission. He went to [facility] and has had one cycle of ifosfamide, carboplatin, etoposide treatment. This was in the first week of January. He was also diagnosed with a fungal pneumonia at that time and has been on fluconazole, valacyclovir, and levofloxacin. He presented to the emergency room yesterday evening for weakness, had a CT of the brain, which was unremarkable. His CBC showed a white count of 18.2, hemoglobin of 9, platelet count of 100. Chemistry showed a calcium of 16.8. His creatinine was slightly elevated at 1.34. He was started on IV fluids and given calcitonin, admitted for further workup. The patient was initially diagnosed with peripheral T-cell lymphoma. In early 2018, he had hypercalcemia at diagnosis. The patient was seen at bedside. He seems slightly confused, but follows all commands and is aware of where he is. Denies any complaints of pain. No shortness of breath. No fevers. No abdominal discomfort. No diarrhea or urinary problems. 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 3. High blood pressure. 4. High cholesterol. PAST SURGICAL HISTORY: 1. Cholecystectomy. 2. Bone marrow biopsies. 3. Lymph node biopsy. ALLERGIES: NO KNOWN DRUG ALLERGIES. HOME MEDICATIONS: 1. Fluconazole 100 mg daily. 2. Valacyclovir 500 mg daily. 3. Zofran 8 mg p.r.n. 4. Prochlorperazine 5 mg p.r.n. 5. Lasix 40 mg p.r.n. 6. Lisinopril 20 mg daily. 7. Metoprolol tartrate 50 mg daily. 8. Potassium chloride p.r.n. 9. Xarelto 20 mg daily. FAMILY HISTORY: Mother had colon cancer. SOCIAL HISTORY: . Has one son. Lives alone. Former smoker. No alcohol or illicit drug use. REVIEW OF SYSTEMS: 10-point review of systems is negative except for noted in HPI. PHYSICAL EXAMINATION: VITAL SIGNS: Temperature is 97.9, pulse is 75, respiratory rate 22, blood pressure is 137/77. He is 97% on 2 L. GENERAL: This is a well-developed, well-nourished male, in no acute distress. HEENT: Normocephalic, atraumatic. Pupils are equal and reactive to light. NECK: Supple. There is bilateral cervical lymphadenopathy noted. CV: Regular rate and rhythm. LUNGS: Clear anterior. ABDOMEN: Soft and nontender. Bowel sounds are positive. EXTREMITIES: There is no clubbing or cyanosis. LYMPH: He has bilateral axillary lymphadenopathy and right supraclavicular lymphadenopathy. NEUROLOGIC: Nonfocal. PERTINENT LABORATORY DATA AND X-RAYS: Current WBCs are 15.5, hemoglobin 8.6, hematocrit 27.2, platelet count 77,000, 72% neutrophils, 8% bands, 1% lymphocytes, 17% monocytes. Sodium 142, potassium 3.7, chloride 105, CO2 is 33, BUN is 22, creatinine is 1.3, lactic acid is 1.9, calcium 15.9, magnesium 1.9, bilirubin 0.3, AST is 22, ALT is 11, alkaline phosphatase is 108. Troponin is 0.298. Serum total protein is 5.8, albumin 3.3, globulin 2.5, and lipase is 7. Urine is negative. Chest x-ray showed no acute findings. ASSESSMENT: 1. Malignant hypercalcemia. 2. Peripheral T-cell lymphoma, status post chemotherapy at [facility]. DISCUSSION: Case has been discussed with Dr. Izquierdo. The patient sees Dr. Hernández at [facility]. He has been informed of the patient's admission and has requested that we transfer the patient to [facility] for further treatment. This has been initiated. His calcium had a small response to calcitonin and IV fluids. We will continue IV fluids and add a dose of Zometa. The patient's son and Dr. Quinteros will be updated. Thank you for the consult. Job ID: [id number]
[2020-01-29] MEDS: Sodium Chloride 0.9% 1,000 ML IV SCH (04:33)
[2020-01-29] MEDS: methylPREDNISolone Sod Succ 40 MG VIAL IVP SCH (05:48)
[2020-01-29 05:58] LABS: ALT (SGPT) 10 U/L (8-55); AST (SGOT) 21 U/L (5-34); Albumin 2.8 g/dL (3.4-4.8); Alkaline Phosphatase 97 U/L (40-110); Anion Gap 10 mmol/L (10-20); BUN (Urea Nitrogen) 23 mg/dL (8.4-25.7); Bilirubin, Total 0.2 mg/dL (0.2-1.2); Calc. Creatinine Clearance 49 mL/min (70-130); Calcium 12.4 mg/dL (7.8-10.44); Carbon Dioxide 29 mmol/L (23-31); Chloride 109 mmol/L (98-107); Estimated GFR-MDRD 53; Globulin 2.3 g/dL (2.4-3.5); Glucose 147 mg/dL (83-110); Magnesium 1.8 mg/dL (1.6-2.6); Potassium 3.5 mmol/L (3.5-5.1); Protein, Total 5.1 g/dL (5.8-8.1); Sodium 144 mmol/L (136-145)
[2020-01-29] MEDS ORDERED: Sodium Chloride 0.9% 1,000 ML IV SCH (08:06)
[2020-01-29] MEDS ORDERED: Potassium Chloride 20 MEQ TAB PO SCH (09:00)
[2020-01-29] MEDS ORDERED: Fluconazole 100 MG TAB PO SCH (09:00)
[2020-01-29] MEDS ORDERED: Lisinopril 10 MG TAB PO SCH (09:00)
[2020-01-29] MEDS ORDERED: Magnesium Oxide 400 MG TAB PO SCH (09:00)
[2020-01-29] MEDS ORDERED: valACYclovir 500 MG TAB PO SCH (09:00)
[2020-01-29] MEDS ORDERED: Rivaroxaban 10 MG TAB PO SCH (09:00)
[2020-01-29] MEDS ORDERED: Folic Acid 1 MG TAB PO SCH (09:00)
[2020-01-29 09:07] LABS: Free T4 (Free Thyroxine) 1.02 ng/dL (0.70-1.48)
[2020-01-29 11:36] VITALS: BP 141/68; TEMP 97.5
--- NOTE | 2020-01-29 12:04 | DIS ---
DATE OF ADMISSION: 01/27/2020 DATE OF DISCHARGE: 01/29/2020 PRIMARY CARE PHYSICIAN: [facility] Call Admission. DISCHARGE DISPOSITION: [facility]. PRIMARY DISCHARGE DIAGNOSES: 1. Hypercalcemia of malignancy. 2. Acute kidney injury. 3. Demand ischemia of myocardium. 4. Sick euthyroid syndrome. SECONDARY DISCHARGE DIAGNOSIS: 1. Peripheral T-cell lymphoma. 2. History of malignant hypercalcemia. 3. Hypertension. 4. Dyslipidemia. 5. Chronic anticoagulation. PRIMARY PROCEDURE/OPERATION: None. RADIOLOGICAL INVESTIGATION: Chest x-ray on admission showed chronic changes without any acute process. CT brain on admission showed no acute intracranial process. SIGNIFICANT LABORATORY DATA: WBC 15.5, hemoglobin 8.6, and platelet 97. BMP; sodium 144, potassium 3.5, BUN 23, creatinine 1.32, and calcium 12.4. LFT normal. Albumin 2.8. TSH 0.27, free T4 of 1.02. And free T3 of 1.51. Urinalysis normal. Blood culture negative. Urine culture negative. DISCHARGE MEDICATIONS: Prior to arrival, the patient is on following medication; 1. Allopurinol 200 mg p.o. daily. 2. Fluconazole 400 mg daily. 3. Folic acid 1 mg daily. 4. Lisinopril 20 mg b.i.d. 5. Magnesium oxide 400 mg b.i.d. 6. Toprol-XL 50 mg daily. 7. Potassium chloride 20 mEq p.o. daily. 8. Xarelto 20 mg daily. 9. Valacyclovir 500 mg p.o. daily. CONTRAINDICATION: None. CODE STATUS: Full code. INPATIENT MOLD WORKER: Hematology/Oncology was consulted while in hospital. TEST RESULTS PENDING ON DISCHARGE: None. ALLERGIES: NO KNOWN DRUG ALLERGIES. DISCHARGE PLAN: Posthospital, the patient is discharged to [facility] for higher level of care. HOSPITAL COURSE: A 79-year-old male, who has a history of T-cell lymphoma and he is getting chemotherapy. The patient was admitted in the hospital for generalized weakness and he was having nausea, vomiting, and vague abdominal discomfort. He was also having very poor appetite and he was also appeared to be confused. He was having metabolic encephalopathy from hypercalcemia. The patient was found with hypercalcemia of malignancy with a calcium level of 16.8. He also has anemia of chronic disease and thrombocytopenia and leukocytosis. The patient was treated with IV fluid. He was given calcitonin in the emergency room. Subsequently, we started Solu-Medrol as well as we also gave him zoledronic acid while in hospital. With the treatment, his calcium has improved to 12.4. Oncology was consulted and after discussion with his oncologist in [place] and his family, they wanted to transfer him to [facility]. Transfer process was completed and the patient is accepted for further care at [facility]. The patient will continue all his previous medication and the patient will be discharged from [facility] when stable. PHYSICAL EXAMINATION: I have seen and examined the patient at bedside today. VITAL SIGNS: Currently, temperature 97.5, pulse 72, respiratory rate 17, saturation 95% on 2 L, and blood pressure 141/68. Weight 163 pounds. GENERAL: The patient is currently alert, awake, no acute distress. HEENT: Head, normocephalic and atraumatic. NECK: Supple. No JVD. No meningeal signs of irritation. LUNGS: Clear to auscultation without any rhonchi or rales. CARDIAC: S1 and S2 regular. No murmur. No gallop. No rub. ABDOMEN: Soft. Bowel sounds present. Nontender, nondistended. No organomegaly. No mass. EXTREMITIES: No edema. NEUROLOGIC: Nonfocal examination. The patient is medically stable for discharge back to other hospital for further care. Paperwork for discharge done and discharge medication reconciliation done. Job ID: [id number]
[2020-01-29] MEDS ORDERED: Senokot S 8.6-50 MG TAB PO PRN (12:15)
--- NOTE | 2020-01-29 12:34 | PDOC.HOSPP ---
- Subjective Encounter Date: 01/29/20 Encounter Time: 10:00 Subjective: Patient seen and examined bedside today, no overnight event, patient has improvement in his calcium level. - Objective Vital Signs & Weight: Vital Signs (12 hours) Temp Pulse Resp BP Pulse Ox 01/29/20 11:17 97.5 F L 72 17 141/68 H 95 01/29/20 09:45 96 01/29/20 07:21 98.6 F 72 16 119/58 L 96 01/29/20 03:39 98.2 F 74 18 138/61 93 L Weight Weight 163 lb I&O: 01/28/20 01/29/20 01/30/20 06:59 06:59 06:59 Intake Total 210 Output Total 620 Balance -410 Result Diagrams: 01/28/20 05:57 01/29/20 05:14 EKG Reviewed by me: Yes Hospitalist ROS - Review of Systems ROS unobtainable: due to mental status - Medication Medications: Active Medications Generic Name Dose Route Start Last Admin Trade Name Davi PRN Reason Stop Dose Admin Fluconazole 400 mg 01/29/20 09:00 01/29/20 11:15 Diflucan PO 400 mg DAILY DANE Administration Folic Acid 1 mg 01/29/20 09:00 01/29/20 11:17 Folvite PO 1 mg DAILY DANE Administration Sodium Chloride 1,000 mls @ 100 mls/hr 01/29/20 08:06 01/29/20 11:18 Normal Saline 0.9% IV 1,000 mls .Q10H DANE Administration Lisinopril 10 mg 01/29/20 09:00 01/29/20 11:17 Zestril PO 10 mg DAILY DANE Administration Magnesium Oxide 400 mg 01/29/20 09:00 01/29/20 11:16 Magnesium Oxide PO 400 mg BID DANE Administration Methylprednisolone Sodium Succinate 40 mg 01/28/20 14:00 01/29/20 05:48 Solu-Medrol IVP 40 mg Q8HR DANE Administration Pantoprazole Sodium 40 mg 01/29/20 09:00 01/29/20 11:17 Protonix PO 40 mg DAILY DANE Administration Potassium Chloride 20 meq 01/29/20 09:00 01/29/20 11:17 K-Dur PO 20 meq DAILY DANE Administration Rivaroxaban 20 mg 01/29/20 09:00 01/29/20 11:17 Xarelto PO 20 mg DAILY DANE Administration Valacyclovir HCl 500 mg 01/29/20 09:00 01/29/20 11:16 Valtrex PO 500 mg DAILY DANE Administration Zolpidem Tartrate 5 mg 01/28/20 08:42 01/28/20 20:43 Ambien PO 5 mg HSPRN PRN Administration Insomnia - Exam General Appearance: NAD, awake alert Eye: PERRL, anicteric sclera ENT: normocephalic atraumatic, no oropharyngeal lesions Neck: supple, symmetric, no JVD, no thyromegaly Heart: RRR, no gallops, no rubs, murmur present Respiratory: CTAB, no wheezes, no rales, no ronchi Gastrointestinal: soft, non-tender, non-distended, normal bowel sounds Extremities: no cyanosis, no clubbing Skin: normal turgor, no lesions Neurological: no focal deficits Musculoskeletal: normal tone, normal strength Psychiatric: normal affect, normal behavior Hosp A/P - Plan old records reviewed/req Assessment 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
[2020-01-29] MEDS ORDERED: Allopurinol 100 MG TAB PO SCH (21:00)
== END 2020-01-29 12:50 | disposition short-term general hospital (02) | DRG 640 ==
LOC: ERS 19:59 → ERHOLD 21:52 → 2NO 01-28 13:11
PROVIDERS: ADMIT Family Medicine; ATTEND Family Medicine
DX: E83.52 Hypercalcemia (principal); G93.41 Metabolic encephalopathy; I21.A1 Myocardial infarction type 2; N17.9 Acute kidney failure, unspecified; E87.2 Acidosis; C84.40 Peripheral T-cell lymphoma, not elsewhere classified, unspecified site; E07.81 Sick-euthyroid syndrome; E78.5 Hyperlipidemia, unspecified; I10 Essential (primary) hypertension; I35.0 Nonrheumatic aortic (valve) stenosis; E78.00 Pure hypercholesterolemia, unspecified; M10.9 Gout, unspecified; D69.6 Thrombocytopenia, unspecified; D72.829 Elevated white blood cell count, unspecified; E86.0 Dehydration; Z79.899 Other long term (current) drug therapy; Z79.82 Long term (current) use of aspirin; Z90.49 Acquired absence of other specified parts of digestive tract; Z79.01 Long term (current) use of anticoagulants; Z87.891 Personal history of nicotine dependence
CPT/HCPCS: 36415; 70450; 71045; 80053; 81003; 81015; 82553; 83605; 83690; 83735; 83880; 84439; 84443; 84481; 84484; 85025; 87040; 87086; 93005; J0630; J2920; J3489; J3490

== ENCOUNTER 2020-02-08 16:35 | Inpatient (IN) | payer MEDICARE, BC ==
--- NOTE | 2020-02-08 17:18 | RAD ---
EXAM: Single view of the chest HISTORY: Lymphoma with shortness of breath COMPARISON: 01/27/2020 FINDINGS: Single view of the chest shows a normal sized cardiomediastinal silhouette. The Mediport i s unchanged in position. Atherosclerotic calcifications are seen in the aorta. There is no evidence of consolidation, mass, or pleural effusion. The bones are unremarkable IMPRESSION: No evidence of acute cardiopulmonary disease
[2020-02-08 17:38] LABS: #Eosinphils 0.1 thou/uL (0.0-0.7); #Lymphocytes 0.2 thou/uL (1.20-3.40); #Monocytes 0.2 thou/uL (0.11-0.59); #Neutrophils 15.4 thou/uL (1.40-6.50); %Basophils 0.2 % (0.0-1.0); %Eosinophils 0.5 % (0.0-10.0); %Lymphocytes 1.4 % (21.0-51.0); %Monocytes 0.9 % (0.0-10.0); Hemoglobin 8.2 g/dL (14.0-18.0); Mean Corpuscular HGB CONC 32.2 g/dL (32.0-36.0); Platelet Count 212 thou/uL (130-400); RBC Distribution Width 18.2 % (11.5-14.5); Red Blood Cell (RBC) Count 2.83 mill/uL (4.70-6.10); White Blood Cell (WBC) Count 15.9 thou/uL (4.8-10.8)
[2020-02-08 17:43] LABS: Bilirubin Negative (Negative); Blood, Urine 1+ (Negative); Clarity Turbid (Clear); Glucose, Urine (Dipstick) Normal (Negative); Ketone, Urine Negative (Negative); Leukocyte 500 Leu/uL (Negative); Nitrite Negative (Negative); Protein, Urine (Dipstick) 100 mg/dL (Neg-Trace); Squamous Epithelial 0-3 HPF (0-3); Urobilinogen Normal mg/dL (Less than 2); WBC/HPF Greater than 50 HPF (0-3)
[2020-02-08 17:44] LABS: Bacteria/HPF 1+ HPF (None Seen)
[2020-02-08 17:56] LABS: ALT (SGPT) 29 U/L (8-55); AST (SGOT) 37 U/L (5-34); Albumin 3.2 g/dL (3.4-4.8); Alkaline Phosphatase 77 U/L (40-110); Anion Gap 12 mmol/L (10-20); BUN (Urea Nitrogen) 29 mg/dL (8.4-25.7); Bilirubin, Total 0.6 mg/dL (0.2-1.2); Calc. Creatinine Clearance 0 mL/min (70-130); Calcium 11.5 mg/dL (7.8-10.44); Carbon Dioxide 26 mmol/L (23-31); Chloride 99 mmol/L (98-107); Estimated GFR-MDRD 33; Globulin 2.8 g/dL (2.4-3.5); Glucose 105 mg/dL (83-110); Potassium 4.3 mmol/L (3.5-5.1); Sodium 133 mmol/L (136-145)
[2020-02-08] MEDS ORDERED: Acetaminophen 325 MG/10.15 ML UDCUP ONE (18:06)
[2020-02-08] MEDS ORDERED: Cefepime 2 GM VIAL ONE (18:06)
[2020-02-08] MEDS ORDERED: Acetaminophen 325 MG TAB ONE (18:07)
[2020-02-08] MEDS ORDERED: Aspirin Chewable 81 MG TAB ONE (18:36)
[2020-02-08] MEDS ORDERED: Vancomycin 1.5 GRAM/300 ML BAG 1.5 GM in Premix Bag 1 BAG IVPB ONE (18:45)
[2020-02-08 19:52] LABS: SARS-CoV-2 NAA Rapid Test Not Detected (NotDetected)
[2020-02-08 21:11] LABS: Troponin I 0.321 ng/mL (< 0.028)
[2020-02-08] MEDS ORDERED: Norepinephrine 8 MG/0.9% NS 250 ML ONE (21:31)
[2020-02-08] MEDS ORDERED: cloNIDine 0.1 MG TAB PO PRN (22:30)
[2020-02-08] MEDS ORDERED: Labetalol HCl 100 MG/20 ML VIAL SLOW IVP PRN (22:30)
[2020-02-08] MEDS ORDERED: HYDROcodone/Acetaminophen 5/325 mg Tablet PO PRN (22:30)
[2020-02-08] MEDS ORDERED: Electrolyte Replacement Protoc 1 EACH EACH FS SCH (22:30)
[2020-02-08] MEDS ORDERED: Morphine 2 MG/ML VIAL SLOW IVP PRN (22:30)
[2020-02-08] MEDS ORDERED: hydrALAZINE 20 MG/ML VIAL SLOW IVP PRN (22:30)
[2020-02-08] MEDS ORDERED: Ondansetron PF 4 MG/2 ML Vial IVP PRN (22:30)
[2020-02-08] MEDS ORDERED: Guaifenesin DM 100-10/5 ML UDCUP PO PRN (22:30)
[2020-02-08] MEDS ORDERED: Promethazine HCl 12.5 MG in Sodium Chloride 0.9% 50 ML IVPB PRN (22:30)
[2020-02-08] MEDS ORDERED: cefTRIAXone\\ROCEPHIN 1 GM in Sodium Chloride 0.9% 100 ML IVPB SCH (22:30)
[2020-02-08] MEDS ORDERED: Norepinephrine 8 MG/0.9% NS 250 ML IVPB PRN (22:34)
[2020-02-08] MEDS ORDERED: Insulin Regular 300 UNITS/3 ML VIAL SC PRN (22:34)
[2020-02-08] MEDS ORDERED: Electrolyte Replacement Protocol FS PRN (23:15)
--- NOTE | 2020-02-08 23:33 | PDOC.HHP ---
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 Patient was recently admitted here , [facility] treatment of malignancy related hypercalcemia, patient reports he was home and doing well until 3 days ago. Patient recieved chemotherapy 2 days ago, he reports weakness x 3 days, shortness of breath, fever/chills with Tmax 102.8. In ED, significant lab abnormalities noted, including WBC 15, hgb 8, Na 133, Cr 1.98, Ca 11.5, elevated TnI in 0.2-0.3 range. COVID swab negative, CXR without acute findings, UA grossly positive for infection. Cultures drawn, 30cc/kg bolus given, patient started on broad spectrum antibiotics, unfortunately patient blood pressure dropped and he was started on levophed, central line placed. Patient to be admitted to CCU for septic shock likely secondary to UTI. Hospitalist ROS - Review of Systems Constitutional: reports: fever, chills, weakness Eyes: denies: pain, vision change, conjunctivae inflammation, eyelid inflammation, redness, other ENT: denies: ear pain, ear discharge, nose pain, nose discharge, nose congestion , mouth pain, mouth swelling, throat pain, throat swelling, other Respiratory: reports: shortness of breath. denies: cough, dry, hemoptysis, SOB with excertion, pleuritic pain, sputum, wheezing, other Cardiovascular: denies: chest pain, palpitations, orthopnea, paroxysmal noc. dyspnea, edema, light headedness, other Gastrointestinal: denies: nausea, vomiting, abdominal pain, diarrhea, constipation, melena, hematochezia, other Genitourinary: denies: dysuria, frequency, incontinence, hematuria, retention, other Musculoskeletal: denies: neck pain, shoulder pain, arm pain, back pain, hand pain, leg pain, foot pain, other Skin: denies: rash, lesions, vinnie, bruising, other Neurological: denies: weakness, numbness, incoordination, change in speech, confusion, seizures, other All other systems reviewed; all pertinent +/- noted in HPI/Subj - Medication Medications: Xarelto tablet : Strength - 15 mg : ORAL Patient Dose: 15 mg Oral 2 times a day. magnesium tablet : ORAL Patient Dose: 2 tab(s) Oral once a day. metoprolol succinate tablet extended release 24 hr : Strength - 50 mg : ORAL Patient Dose: 50 mg Oral once a day. folic acid oral tablet : Strength - 1 mg : ORAL Patient Dose: 1 mg Oral once a day. allopurinol tablet : Strength - 100 mg : ORAL Patient Dose: 200 mg Oral once a day. lisinopril tablet : Strength - 20 mg : ORAL Patient Dose: 20 mg Oral once a day. potassium chloride oral tablet extended release : Strength - 20 mEq : ORAL Patient Dose: 20 mEq Oral once a day. Xarelto tablet : Strength - 20 mg : ORAL Patient Dose: 20 mg Oral once a day. simvastatin tablet : Strength - 20 mg : ORAL Patient Dose: 20 mg Oral once a day (in the evening). furosemide oral tablet : Strength - 40 mg : ORAL Patient Dose: 40 mg Oral once a day PRN. fluconazole tablet : Strength - 200 mg : ORAL Patient Dose: 400 mg Oral once a day. valACYclovir tablet : Strength - 500 mg : ORAL Patient Dose: 500 mg Oral once a day. Hospitalist History - Past Medical History Other Medical History: T cell lymphoma, HLD, HTN, pancreatitis, hypercalcemia - Past Surgical History Other Surgical History: mediport R chest wall, cholecystectomy. - Family History Family History: reports: no pertinent history - Social History Smoking Status: Never smoker Alcohol: reports: None Drugs: reports: none - Exam General Appearance: NAD, awake alert Eye: PERRL, anicteric sclera ENT: normocephalic atraumatic, no oropharyngeal lesions, moist mucosa Neck: supple, symmetric, no JVD, no thyromegaly, no lymphadenopathy, no carotid bruit Heart: RRR, no murmur, no gallops, no rubs, normal peripheral pulses Respiratory: CTAB, no wheezes, no rales, no ronchi, normal chest expansion, no tachypnea, normal percussion Gastrointestinal: soft, non-tender, non-distended, normal bowel sounds, no palpable masses, no hepatomegaly, no splenomegaly, no bruit Extremities: no cyanosis, no clubbing, no edema Skin: normal turgor, no lesions, no rashes Neurological: cranial nerve grossly intact, normal sensation to touch, no weakness, no focal deficits, no new deficit Musculoskeletal: normal tone, normal strength, no muscle wasting Psychiatric: normal affect, normal behavior, A&O x 3 Hospitalist Results - Labs Result Diagrams: 02/08/20 17:22 02/08/20 17:22 Lab results: WBC 15.9 thou/uL (4.8-10.8) H 02/08/20 17:22 Hgb 8.2 g/dL (14.0-18.0) L 02/08/20 17:22 Hct 25.5 % (42.0-52.0) L 02/08/20 17:22 MCV 90.0 fL (78.0-98.0) 02/08/20 17:22 Plt Count 212 thou/uL (130-400) 02/08/20 17:22 Neutrophils % 97.0 % (42.0-75.0) H 02/08/20 17:22 Sodium 133 mmol/L (136-145) L 02/08/20 17:22 Potassium 4.3 mmol/L (3.5-5.1) 02/08/20 17:22 Chloride 99 mmol/L (98-107) 02/08/20 17:22 Carbon Dioxide 26 mmol/L (23-31) 02/08/20 17:22 BUN 29 mg/dL (8.4-25.7) H 02/08/20 17:22 Creatinine 1.98 mg/dL (0.7-1.3) H 02/08/20 17:22 Glucose 105 mg/dL (83-110) 02/08/20 17:22 Lactic Acid 2.0 mmol/L (0.5-2.2) 02/08/20 17:22 Calcium 11.5 mg/dL (7.8-10.44) H 02/08/20 17:22 Total Bilirubin 0.6 mg/dL (0.2-1.2) 02/08/20 17:22 AST 37 U/L (5-34) H 02/08/20 17:22 ALT 29 U/L (8-55) 02/08/20 17:22 Alkaline Phosphatase 77 U/L (40-110) 02/08/20 17:22 CK-MB (CK-2) 1.0 ng/mL (0-6.6) 02/08/20 17:22 Troponin I 0.321 ng/mL (< 0.028) H* 02/08/20 20:23 Serum Total Protein 6.0 g/dL (5.8-8.1) 02/08/20 17:22 Albumin 3.2 g/dL (3.4-4.8) L 02/08/20 17:22 Urine Ketones Negative mg/dL (Negative) 02/08/20 16:50 Urine Blood 1+ (Negative) A 02/08/20 16:50 Urine Nitrite Negative (Negative) 02/08/20 16:50 Ur Leukocyte Esterase 500 Len/uL (Negative) A 02/08/20 16:50 Urine RBC 4-6 HPF (0-3) A 02/08/20 16:50 Urine WBC Greater than 50 HPF (0-3) A 02/08/20 16:50 Ur Squamous Epith Cells 0-3 HPF (0-3) 02/08/20 16:50 Urine Bacteria 1+ HPF (None Seen) A 02/08/20 16:50 Additional comment: VITAL SIGNS TueFeb 08, 2020 23:15 SKY [place], [facility] BP: 110/64 MAP: 79 Pulse: 71 Resp: 20 Pain: 0 O2 sat: 100 on (2L Oxygen) Time: 02/08/2020 23:15. 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 # septic shock due to UTI # UTI - admit to CCU - continue levophed - consult pulmonary for AM for pressor assistance - follow up cultures - continue broad spectrum abx # hyponatremia # hypercalcemia - in the setting of hypovolemia and shock, will continue to treat as above and trend BMP w/ rehydration underway intravenously, consult oncology if hypercalcemia worsens or fails to resolve with conservative measures # elevated troponin - patient on xarelto, will continue this and trend troponin, suspect this is a type 2/demand type DC # [place] - suspect prerenal due to hypotension, will continue IVF and trend BMP # anemia - likely due to chemotherapy or oncologic process, monitor for bleeding , continue xarelto for now, PPI 45 minutes critical care time
[2020-02-08] MEDS: Sodium Chloride 0.9% 1,000 ML IV SCH (23:45)
[2020-02-08 23:55] LABS: Troponin I 0.294 ng/mL (< 0.028)
[2020-02-09] MEDS: Piperacillin/Tazobactam 3.375 GM in Sodium Chloride 0.9% 100 ML IVPB SCH ×4 (00:41→17:48)
[2020-02-09 01:23] VITALS: BMI 24.3
[2020-02-09 04:18] LABS: #Eosinphils 0.1 thou/uL (0.0-0.7); #Lymphocytes 0.1 thou/uL (1.20-3.40); #Monocytes 0.1 thou/uL (0.11-0.59); #Neutrophils 11.6 thou/uL (1.40-6.50); %Basophils 0.2 % (0.0-1.0); %Eosinophils 0.8 % (0.0-10.0); %Lymphocytes 1.2 % (21.0-51.0); %Monocytes 0.9 % (0.0-10.0); %Neutrophils 96.9 % (42.0-75.0); Hemoglobin 6.7 g/dL (14.0-18.0); Mean Corpuscular Volume 90.8 fL (78.0-98.0); Mean Platelet Volume 8.8 fL (7.4-10.4); Platelet Count 184 thou/uL (130-400); RBC Distribution Width 18.4 % (11.5-14.5); Red Blood Cell (RBC) Count 2.29 mill/uL (4.70-6.10)
[2020-02-09 04:40] LABS: Anion Gap 11 mmol/L (10-20); BUN (Urea Nitrogen) 28 mg/dL (8.4-25.7); Calc. Creatinine Clearance 36 mL/min (70-130); Calcium 9.8 mg/dL (7.8-10.44); Carbon Dioxide 24 mmol/L (23-31); Chloride 107 mmol/L (98-107); Estimated GFR-MDRD 36; Glucose 102 mg/dL (83-110); Magnesium 1.7 mg/dL (1.6-2.6); Potassium 3.7 mmol/L (3.5-5.1); Sodium 138 mmol/L (136-145)
[2020-02-09] MEDS ORDERED: Magnesium 2 GM/50 ML 2 GM in Premix Bag 1 BAG IVPB SCH (07:45)
[2020-02-09] MEDS: Sodium Chloride 0.9% 1,000 ML IV SCH ×2 (07:59→09:03)
[2020-02-09] MEDS: Famotidine 20 MG TAB PO SCH (08:53)
[2020-02-09] MEDS: Fluconazole 100 MG TAB PO SCH (08:53)
[2020-02-09] MEDS: Folic Acid 1 MG TAB PO SCH (08:54)
[2020-02-09] MEDS: Polyethylene Glycol 3350 17 GM Packet PO SCH (08:54)
[2020-02-09] MEDS: valACYclovir 500 MG TAB PO SCH (09:03)
[2020-02-09] MEDS: Acetaminophen 325 MG TAB PO PRN (13:41)
--- NOTE | 2020-02-09 15:30 | CON ---
DATE OF CONSULTATION: 02/09/2020 HISTORY OF PRESENT ILLNESS: Mr. Boyd is a very pleasant, 79-year-old male, who apparently has a T-cell lymphoma and he is followed at [facility]. He presented with fever and cough. He was also hypotensive. He has been weaned off his pressors and received 2 L volume resuscitation in the emergency room. He says he is feeling much better. He received chemo 2 days prior to admission. His COVID screen was negative. PAST MEDICAL HISTORY: Remarkable for; 1. Hypertension. 2. History of pancreatitis. 3. History of hypercalcemia. 4. Status post MediPort placement. 5. History of cholecystectomy. 6. Chronic anticoagulation with Xarelto, I believe for atrial fibrillation. FAMILY HISTORY: Negative for lung disease in early age. REVIEW OF SYSTEMS: Otherwise, negative. He denies gross hematuria, melena, or hematochezia. A 10-point review of systems is otherwise negative. PHYSICAL EXAMINATION: VITAL SIGNS: He has not been febrile since he has been in the ICU. His heart rate is 102, respiratory rates in the teens, oximetry is 94, blood pressure is 117/ 59. HEENT: He has alopecia. Pupils are equal. Sclerae are anicteric. Extraocular movements are full. Throat is clear. NECK: Supple. No lymphadenopathy. LUNGS: Clear. HEART: Regular rhythm. ABDOMEN: Soft and nontender. EXTREMITIES: Without clubbing, cyanosis, or edema. NEUROLOGIC: Nonfocal. DIAGNOSTIC STUDIES: Chest radiograph shows no infiltrates. IMPRESSION: Fever after chemotherapy. It is too early for neutropenic fever. He is anemic with a drop in hemoglobin with volume resuscitation from 8.2 to 6.7. He is tentatively scheduled to be transfused 2 units today. He is stable in my opinion since he is weaned off pressors and in no distress to move out to the Oncology unit. This is a 70-minute consult, 50% of the time spent on the unit, coordinating care. Job ID: [id number] [facility]
--- NOTE | 2020-02-09 17:16 | PDOC.HOSPP ---
- Subjective Encounter Date: 02/09/20 Encounter Time: 17:14 Subjective: Mr. Boyd was seen today in follow-up of UTI and sepsis. He says he is beginning to feel better. - Objective Vital Signs & Weight: Vital Signs (12 hours) Temp Pulse Pulse Resp BP BP Pulse Ox 02/09/20 15:42 99.1 F 96 18 94/52 L 94 L 02/09/20 14:15 97.8 F 106 H 18 105/51 L 93 L 02/09/20 13:51 100.8 F H 106 H 18 125/60 94 L 02/09/20 11:45 98.3 F 102 H 18 117/59 L 94 L 02/09/20 09:30 100 02/09/20 08:23 100 02/09/20 08:00 98.7 F Weight Admit Weight 164 lb Weight 164 lb 14.492 oz Most Recent Monitor Data Heart Rate from ECG 91 NIBP 103/55 NIBP BP-Mean 71 Respiration from ECG 31 SpO2 98 I&O: 02/08/20 02/09/20 02/10/20 06:59 06:59 06:59 Intake Total 989.2 590 Output Total 720 510 Balance 269.2 80 Result Diagrams: 02/09/20 03:45 02/09/20 03:45 Additional Labs: Accuchecks 02/09/20 02/09/20 16:10 12:33 POC Glucose 105 100 Hospitalist ROS - Medication Medications: Active Medications Generic Name Dose Route Start Last Admin Trade Name Freq PRN Reason Stop Dose Admin Acetaminophen 650 mg 02/08/20 22:30 02/09/20 13:41 Tylenol PO 650 mg Q4H PRN Administration Headache/Fever/Mild Pain (1-3) Famotidine 20 mg 02/09/20 09:00 02/09/20 08:53 Pepcid PO 20 mg DAILY DANE Administration Fluconazole 400 mg 02/09/20 09:00 02/09/20 08:53 Diflucan PO 400 mg DAILY DANE Administration Folic Acid 1 mg 02/09/20 09:00 02/09/20 08:54 Folvite PO 1 mg DAILY DANE Administration Sodium Chloride 1,000 mls @ 125 mls/hr 02/08/20 23:15 02/09/20 09:03 Normal Saline 0.9% IV 1,000 mls .Q8H DANE Administration Piperacillin Sod/Tazobactam 100 mls @ 200 mls/hr 02/08/20 23:59 02/09/20 12: 02 Sod 3.375 gm/ Sodium Chloride IVPB 100 mls Q6HR DANE Administration Polyethylene Glycol 17 gm 02/09/20 09:00 02/09/20 08:54 Miralax PO Not Given DAILY DANE Valacyclovir HCl 500 mg 02/09/20 09:00 02/09/20 09:03 Valtrex PO 500 mg DAILY DANE Administration - Exam Eye: PERRL, anicteric sclera Heart: RRR, no murmur, no gallops, no rubs, normal peripheral pulses Respiratory: CTAB, no wheezes, no rales, no ronchi, normal chest expansion Gastrointestinal: soft, non-tender, non-distended, normal bowel sounds, no palpable masses Extremities: no cyanosis, no edema Hosp A/P (1) UTI (urinary tract infection) Status: Acute (2) Sepsis Code(s): A41.9 - SEPSIS, UNSPECIFIED ORGANISM Status: Acute (3) T-cell lymphoma Code(s): C85.90 - NON-HODGKIN LYMPHOMA, UNSPECIFIED, UNSPECIFIED SITE Status: Acute (4) Acute kidney injury Code(s): N17.9 - ACUTE KIDNEY FAILURE, UNSPECIFIED Status: Acute - Plan * UTI and sepsis- urine culture is growing a gram negative jenna- will continue the curent antibiotics ppending the sensitivities * T-cell Lymphoma- stable * Anemia- likely due to chronic disease- agree with transfusion * Acute kidney injury- likely from sepsis- however with check a renal ultrasound to rule out obstruction, and he likely will need to check post void residuals as well
[2020-02-09] MEDS: Rivaroxaban 10 MG TAB PO SCH (17:49)
[2020-02-09] MEDS ORDERED: Vancomycin HCl 750 MG in Sodium Chloride 0.9% 250 ML 250 ML IVPB SCH (20:00)
[2020-02-09] MEDS: Allopurinol 100 MG TAB PO SCH (20:29)
[2020-02-10] MEDS: Sodium Chloride 0.9% 1,000 ML IV SCH ×4 (00:12→23:34)
[2020-02-10] MEDS: Piperacillin/Tazobactam 3.375 GM in Sodium Chloride 0.9% 100 ML IVPB SCH ×5 (00:12→23:32)
[2020-02-10 06:03] LABS: Anion Gap 9 mmol/L (10-20); BUN (Urea Nitrogen) 21 mg/dL (8.4-25.7); Calc. Creatinine Clearance 39 mL/min (70-130); Calcium 8.9 mg/dL (7.8-10.44); Carbon Dioxide 22 mmol/L (23-31); Chloride 111 mmol/L (98-107); Estimated GFR-MDRD 40; Glucose 74 mg/dL (83-110); Magnesium 1.7 mg/dL (1.6-2.6); Sodium 139 mmol/L (136-145)
[2020-02-10 06:09] LABS: Troponin I 0.138 ng/mL (< 0.028)
[2020-02-10 06:29] LABS: #Eosinphils 0.1 thou/uL (0.0-0.7); #Lymphocytes 0.1 thou/uL (1.20-3.40); #Monocytes 0.1 thou/uL (0.11-0.59); #Neutrophils 6.7 thou/uL (1.40-6.50); %Basophils 0.3 % (0.0-1.0); %Eosinophils 0.8 % (0.0-10.0); %Lymphocytes 1.3 % (21.0-51.0); %Monocytes 1.4 % (0.0-10.0); %Neutrophils 96.2 % (42.0-75.0); Anisocytosis SLIGHT = 6-15 cells (100X) (0-5/hpf); Hemoglobin 7.4 g/dL (14.0-18.0); MDiff Complete? YES; Mean Corpuscular HGB CONC 32.2 g/dL (32.0-36.0); Mean Corpuscular Hemoglobin 28.8 pg (27.0-31.0); Mean Corpuscular Volume 89.5 fL (78.0-98.0); Mean Platelet Volume 8.7 fL (7.4-10.4); Ovalocytes SLIGHT = 2-5 cells (100X) (0-1/hpf); Platelet Count 114 thou/uL (130-400); Platelet Morphology Comment Appears Decreased; RBC Distribution Width 17.7 % (11.5-14.5); Red Blood Cell (RBC) Count 2.58 mill/uL (4.70-6.10)
[2020-02-10] MEDS ORDERED: Potassium Chloride 20 MEQ TAB PO SCH ×2 (07:30→12:00)
[2020-02-10] MEDS ORDERED: Magnesium 2 GM/50 ML 2 GM in Premix Bag 1 BAG IVPB SCH (07:30)
--- NOTE | 2020-02-10 08:41 | PDOC.HOSPP ---
- Subjective Encounter Date: 02/10/20 Encounter Time: 08:39 Subjective: Mr. Boyd was seen today in follow-up of UTI with sepsis. He says he feels better today no new complaints. - Objective Vital Signs & Weight: Vital Signs (12 hours) Temp Pulse Resp BP Pulse Ox 02/10/20 07:49 98.6 F 91 18 124/60 94 L Weight Admit Weight 164 lb Weight 180 lb Most Recent Monitor Data Heart Rate from ECG 91 NIBP 103/55 NIBP BP-Mean 71 Respiration from ECG 31 SpO2 98 I&O: 02/09/20 02/10/20 02/11/20 06:59 06:59 06:59 Intake Total 989.2 2495 Output Total 720 1860 Balance 269.2 635 Result Diagrams: 02/10/20 05:30 02/10/20 05:30 Additional Labs: Accuchecks 02/09/20 02/09/20 02/09/20 20:55 16:10 12:33 POC Glucose 149 H 105 100 Hospitalist ROS - Medication Medications: Active Medications Generic Name Dose Route Start Last Admin Trade Name Freq PRN Reason Stop Dose Admin Acetaminophen 650 mg 02/08/20 22:30 02/09/20 13:41 Tylenol PO 650 mg Q4H PRN Administration Headache/Fever/Mild Pain (1-3) Allopurinol 200 mg 02/09/20 21:00 02/09/20 20:29 Zyloprim PO 200 mg QPM DANE Administration Famotidine 20 mg 02/09/20 09:00 02/09/20 08:53 Pepcid PO 20 mg DAILY DANE Administration Fluconazole 400 mg 02/09/20 09:00 02/09/20 08:53 Diflucan PO 400 mg DAILY DANE Administration Folic Acid 1 mg 02/09/20 09:00 02/09/20 08:54 Folvite PO 1 mg DAILY DANE Administration Sodium Chloride 1,000 mls @ 125 mls/hr 02/08/20 23:15 02/10/20 00:12 Normal Saline 0.9% IV 1,000 mls .Q8H DANE Administration Piperacillin Sod/Tazobactam 100 mls @ 200 mls/hr 02/08/20 23:59 02/10/20 05: 26 Sod 3.375 gm/ Sodium Chloride IVPB 100 mls Q6HR DANE Administration Vancomycin HCl 750 mg/ Sodium 250 mls @ 250 mls/hr 02/09/20 20:00 02/09/20 20 :29 Chloride IVPB 02/10/20 20:59 250 mls 2000 DANE Administration Polyethylene Glycol 17 gm 02/09/20 09:00 02/09/20 08:54 Miralax PO Not Given DAILY DANE Rivaroxaban 20 mg 02/09/20 17:00 02/09/20 17:49 Xarelto PO 20 mg 1700 DANE Administration Valacyclovir HCl 500 mg 02/09/20 09:00 02/09/20 09:03 Valtrex PO 500 mg DAILY DANE Administration - Exam Eye: PERRL, anicteric sclera Heart: RRR, no gallops, no rubs, normal peripheral pulses, murmur present, III/ IV Respiratory: CTAB, no wheezes, no rales, no ronchi, normal chest expansion Gastrointestinal: soft, normal bowel sounds Extremities: 1+ LE edema Hosp A/P (1) UTI (urinary tract infection) Status: Acute (2) Sepsis Code(s): A41.9 - SEPSIS, UNSPECIFIED ORGANISM Status: Acute (3) T-cell lymphoma Code(s): C85.90 - NON-HODGKIN LYMPHOMA, UNSPECIFIED, UNSPECIFIED SITE Status: Acute (4) Acute kidney injury Code(s): N17.9 - ACUTE KIDNEY FAILURE, UNSPECIFIED Status: Acute - Plan * UTI and sepsis- urine culture is growing a gram negative jann> Will discontinue Vancomycin * Await final culture results * T-cell Lymphoma- stable * Anemia- likely due to chronic disease- agree with transfusion * Acute kidney injury- Improving
--- NOTE | 2020-02-10 08:41 | ULT ---
BILATERAL RENAL ULTRASOUND: Date: 02/10/2020 PROVIDED CLINICAL HISTORY: Acute kidney injury. FINDINGS: Right kidney measures about 13.5 x 6.6 x 5.3 cm and demonstrates no evidence for hydronephrosis or so lid mass. Multiple simple-appearing cysts are seen. Left kidney measures about 12.2 x 5.6 x 5.6 cm and demonstrates no evidence for hydronephrosis or rashida id mass. Multiple simple appearing cysts are seen. The urinary bladder is decompressed and not well evaluated. Bilateral ureteral jets are seen. IMPRESSION: No evidence for hydronephrosis. POS: EMILIAON
[2020-02-10] MEDS: Fluconazole 100 MG TAB PO SCH (08:46)
[2020-02-10] MEDS: Famotidine 20 MG TAB PO SCH (08:47)
[2020-02-10] MEDS: valACYclovir 500 MG TAB PO SCH (08:47)
[2020-02-10] MEDS: Folic Acid 1 MG TAB PO SCH (08:47)
[2020-02-10] MEDS: Polyethylene Glycol 3350 17 GM Packet PO SCH (08:47)
[2020-02-10] MEDS: Rivaroxaban 10 MG TAB PO SCH (17:29)
[2020-02-10] MEDS: Allopurinol 100 MG TAB PO SCH (20:45)
[2020-02-10] MEDS: Acetaminophen 325 MG TAB PO PRN (20:45)
[2020-02-11] MEDS: Piperacillin/Tazobactam 3.375 GM in Sodium Chloride 0.9% 100 ML IVPB SCH (05:35)
[2020-02-11 06:29] LABS: Anion Gap 11 mmol/L (10-20); BUN (Urea Nitrogen) 15 mg/dL (8.4-25.7); Calc. Creatinine Clearance 45 mL/min (70-130); Calcium 9.2 mg/dL (7.8-10.44); Carbon Dioxide 22 mmol/L (23-31); Chloride 111 mmol/L (98-107); Estimated GFR-MDRD 44; Glucose 77 mg/dL (83-110); Magnesium 1.8 mg/dL (1.6-2.6); Potassium 3.3 mmol/L (3.5-5.1); Sodium 141 mmol/L (136-145)
[2020-02-11 06:43] LABS: #Eosinphils 0.1 thou/uL (0.0-0.7); #Lymphocytes 0.1 thou/uL (1.20-3.40); #Monocytes 0.3 thou/uL (0.11-0.59); #Neutrophils 3.2 thou/uL (1.40-6.50); %Basophils 0.2 % (0.0-1.0); %Eosinophils 1.7 % (0.0-10.0); %Lymphocytes 2.5 % (21.0-51.0); %Monocytes 6.9 % (0.0-10.0); %Neutrophils 88.6 % (42.0-75.0); Hemoglobin 7.9 g/dL (14.0-18.0); Mean Corpuscular HGB CONC 32.8 g/dL (32.0-36.0); Mean Corpuscular Hemoglobin 29.8 pg (27.0-31.0); Mean Corpuscular Volume 90.6 fL (78.0-98.0); Mean Platelet Volume 8.6 fL (7.4-10.4); Platelet Count 101 thou/uL (130-400); RBC Distribution Width 17.8 % (11.5-14.5); Red Blood Cell (RBC) Count 2.66 mill/uL (4.70-6.10); White Blood Cell (WBC) Count 3.6 thou/uL (4.8-10.8)
[2020-02-11] MEDS ORDERED: Potassium Chloride 20 MEQ TAB PO SCH ×2 (07:45→13:00)
[2020-02-11] MEDS ORDERED: Magnesium 2 GM/50 ML 2 GM in Premix Bag 1 BAG IVPB SCH (07:45)
[2020-02-11] MEDS: Polyethylene Glycol 3350 17 GM Packet PO SCH (08:39)
[2020-02-11] MEDS: valACYclovir 500 MG TAB PO SCH (08:40)
[2020-02-11] MEDS: Famotidine 20 MG TAB PO SCH (08:40)
[2020-02-11] MEDS: Folic Acid 1 MG TAB PO SCH (08:40)
[2020-02-11] MEDS: Sodium Chloride 0.9% 1,000 ML IV SCH ×3 (08:41→22:39)
[2020-02-11] MEDS: Fluconazole 100 MG TAB PO SCH (09:03)
[2020-02-11] MEDS: MEROPENEM 1 GM/50 ML 1 GM in Premix Bag 1 BAG IVPB SCH ×2 (13:43→21:01)
[2020-02-11] MEDS ORDERED: Meropenem 1 GM in Sodium Chloride 0.9% 100 ML IVPB SCH (14:00)
--- NOTE | 2020-02-11 17:26 | CT ---
CT abdomen and pelvis without Oral contrast was not administered. INDICATIONS: Pyelonephritis. Abdominal pain. COMPARISON: CT abdomen pelvis 07/04/2019 FINDINGS: Bibasilar atelectasis and/or infiltrates. Liver unremarkable. Small splenic cyst again noted. Spleen and pancreas otherwise unremarkable. Stomach and duodenum appear unremarkable. Adrenal glands appear normal. Kidneys appear unremarkable. Collecting structures and urinary bladder appear unremarkable. Small bowel loops are normal caliber and exhibit normal fold pattern. Appendix is identified and appears unremarkable. Colon is unremarkable. Aorta is normal caliber. Diffuse confluent retroperitoneal adenopathy has progressed since prior exam. Bilateral inguinal piedad n adenopathy has progressed. Pelvic structures appear unremarkable. Subcutaneous tissues, abdominal wall, and muscular structures appear unremarkable. Compression of the L1 vertebra is stable from prior exam. Anterolisthesis at L4-5 is also stable. IMPRESSION: 1. Numerous bilateral renal cystic lesions appear stable. No hydronephrosis. Kidneys show symmetric f unction with no evidence of focal pyelonephritis. Bilateral perinephric stranding is stable. 2. Progression of retroperitoneal and iliac chain adenopathy. 3. Prominent adenopathy and/or mass in the right retroperitoneum obscures the right psoas muscle. Thi s is poorly evaluated without IV contrast.
--- NOTE | 2020-02-11 17:54 | CON ---
DATE OF CONSULTATION: 02/11/2020 REASON FOR CONSULTATION: Urinary infection and lymphoma. HISTORY OF PRESENT ILLNESS: A 79-year-old whom I had seen in June of last year when he presented with a history of pancreatitis and T-cell lymphoma, on chemotherapy, monitored by Dr. Izquierdo. The patient had an inflammatory process in the left groin, which appeared to be an infected lymphocele, and the impression was infected lymphocele with probable necrosis of the lymph node following chemotherapy. The organism was Staphylococcus aureus, which was methicillin sensitive, and that infection seems to have resolved. At this time, he became ill again for about a week before admission and this consisted of fever and a dry cough and some dyspnea. Initial findings included BP 116/70, pulse 130, respiratory rate 24, temperature 101.5, and O2 saturations were 92 on room air. His COVID PCR test was negative. The other findings included white cell count 15,000 with hemoglobin 8.2, platelets 212, and 97% neutrophils. Sodium 133, creatinine 1.98, calcium 11.5, AST 37, and albumin 3.2. Urinalysis with greater than 50 wbc's. The imaging studies are a chest x-ray without any infiltrates, brain CT was not remarkable, renal ultrasound did not show any obstruction. The patient has had a PET scan on 12/28/2019 for staging and it showed extensive diffuse worsening of hypermetabolic activity in the neck, chest, abdomen, and pelvis. Currently, he is in bed. He does not have any pain right now. No dyspnea or cough. He does have a little bit of abdominal tenderness, which is diffuse, but he voids without any pain or evidence of incontinence or urinary retention. PAST MEDICAL HISTORY: 1. T-cell lymphoma, on chemotherapy. 2. Lymphocele, infected with methicillin-sensitive Staph aureus. 3. Pancreatitis. 4. MediPort placement. SOCIAL HISTORY: Retired, used to work for [employer]. Never smoker. ALLERGIES: NONE. FAMILY HISTORY: Noncontributory. CURRENT MEDICATIONS: 1. Allopurinol. 2. Catapres. 3. Pepcid. 4. Diflucan. 5. Insulin. 6. Valacyclovir. 7. Rivaroxaban. 8. Meropenem. PHYSICAL EXAMINATION: VITAL SIGNS: T-max 100.8, blood pressure 130/72, pulse 99, respirations 20, and O2 saturation 94 on room air. SKIN: The port in the right subclavian location, which has not yet been accessed. The patient has a right groin triple-lumen catheter. He does not have a Ram catheter. No lymphadenopathy. The right groin lesion has resolved. HEENT: Ocular movements are conjugate. Oral cavity normal. NECK: Supple. LUNGS: Symmetric, clear breath sounds. HEART: S1 and S2. Regular rate. ABDOMEN: Soft, not distended. Mild tenderness, diffuse. No ascites. No bladder distention. EXTREMITIES: No joint inflammatory activity. No edema. Pulses 1+ in dorsalis pedis. LABORATORY DATA: White cell count was 15.9 down to 3.6, hemoglobin 7.9, platelets 101,000, and 88% neutrophils. Creatinine is down to 1.55 with a GFR of 44. Previous urinalysis on 01/26 showed 7 to 10 wbc's. Urine culture from 01/26, which shows no growth at 36 hours. ASSESSMENT: 1. T-cell lymphoma, on chemotherapy at [facility] with persistence of progressive disease. 2. Hypercalcemia. 3. Infected lymphocele, which has resolved, recently treated. 4. New onset of fever. He did have some coughing spells, but the chest x-ray is normal. His COVID test is negative and I believe the reason for the fever is the urinary findings with likely pyelonephritis and/or prostatitis. We will go ahead and check his CT stone protocol. Continue meropenem and we will keep the same dose range. If the CT stone protocol was normal, then I would advise a total of 10 days of treatment. He did not seem to have any signs or symptoms that would suggest urinary retention. May want to repeat postvoid residual one more time to verify that. Job ID: [id number] [facility]
[2020-02-11] MEDS: Rivaroxaban 10 MG TAB PO SCH (18:56)
--- NOTE | 2020-02-11 18:58 | PDOC.EVN ---
Event Note - Event Note Event Note: Patient was in CT scan when I came to see him. Vital signs were stable. ID consult has been placed.
[2020-02-11] MEDS: Allopurinol 100 MG TAB PO SCH (20:01)
--- NOTE | 2020-02-11 23:45 | CON ---
DATE OF CONSULTATION: REASON FOR CONSULT: T-cell lymphoma. HISTORY OF PRESENT ILLNESS: Mr. Boyd is a 79-year-old gentleman who has T-cell lymphoma. He has undergone treatment with R-CHOP, then ifosfamide, carboplatin, etoposide, and now Gemzar. He was recently admitted here and transferred to [facility] for fungal pneumonia and malignant hypercalcemia. He did receive Zometa on his last admission. He began chemotherapy with gemcitabine on February 03, was discharged home on February 05. [facility] saw the patient on the and the patient was having weakness and cough. On admission, his white count was 15, 000. His urine was positive for bacteria. Microbiology confirmed E coli. Patient was started on IV fluids and antibiotics, and has improved over the last several days. He denies any complaints at this time. PAST MEDICAL HISTORY: 1. T-cell lymphoma. 2. Malignant hypercalcemia. 3. Fungal pneumonia. 4. Hypertension. 5. High cholesterol. 6. Atrial fibrillation. PAST SURGICAL HISTORY: 1. MediPort placement. 2. Cholecystectomy. 3. Bone marrow biopsy. CURRENT MEDICATIONS: 1. Allopurinol. 2. Fluconazole. 3. Folic acid. 4. Lisinopril. 5. Metoprolol. 6. Potassium. 7. Xarelto. 8. Valacyclovir. FAMILY HISTORY: Noncontributory. SOCIAL HISTORY: , has one son. Lives with his son. No alcohol, tobacco, or illicit drug use. REVIEW OF SYSTEMS: 10-point review of systems is negative except for noted in HPI. PHYSICAL EXAMINATION: VITAL SIGNS: Temperature is 98.0, pulse is 99, respiratory rate 20, blood pressure is 136/72, 94% on room air. GENERAL: A well-developed, well-nourished male, in no acute distress. HEENT: Normocephalic, atraumatic. Pupils are equal and reactive to light. NECK: Supple. CV: Regular rate and rhythm. LUNGS: Clear. ABDOMEN: Soft. NEUROLOGICAL: Intact. PERTINENT LABORATORY AND X-RAY DATA: Current WBCs 3.6, hemoglobin 7.9, hematocrit 24.1, platelet count 101, neutrophils 88.6%, 2.5% lymphocytes. Sodium 141, potassium 3.3, chloride 111, CO2 is 22, BUN is 15, creatinine 1.55, calcium 9.2, magnesium 1.8, bilirubin is 0.6, AST is 37, ALT is 29, alkaline phosphatase is 77. Troponin is 0.294. Serum total protein is 6, albumin 3.2, globulin 2.8. COVID negative. ASSESSMENT: 1. E coli urinary tract infection. 2. T-cell lymphoma, status post cycle 1 of gemcitabine. 3. Pancytopenia secondary to chemotherapy. DISCUSSION: Patient is on antibiotics and IV fluids. His calcium was mildly elevated on admission, but has returned to normal. Infectious Disease has been consulted for further assistance. He should continue fluconazole for his fungal pneumonia. He was due for a dose of Gemzar today. Chemo will be held until he has recovered for his UTI. The case has been discussed with Dr. Izquierdo who will speak further with the son. Thank you for the consult. Job ID: [id number] [facility]
[2020-02-12] MEDS: Sodium Chloride 0.9% 1,000 ML IV SCH ×3 (04:28→21:13)
[2020-02-12] MEDS: MEROPENEM 1 GM/50 ML 1 GM in Premix Bag 1 BAG IVPB SCH ×2 (05:05→14:24)
[2020-02-12 07:40] LABS: #Eosinphils 0.1 thou/uL (0.0-0.7); #Lymphocytes 0.1 thou/uL (1.20-3.40); #Monocytes 0.4 thou/uL (0.11-0.59); #Neutrophils 6.6 thou/uL (1.40-6.50); %Basophils 0.6 % (0.0-1.0); %Eosinophils 1.2 % (0.0-10.0); %Lymphocytes 1.2 % (21.0-51.0); %Monocytes 5.7 % (0.0-10.0); %Neutrophils 91.4 % (42.0-75.0); Hemoglobin 8.2 g/dL (14.0-18.0); Mean Corpuscular HGB CONC 33.2 g/dL (32.0-36.0); Mean Corpuscular Volume 90.5 fL (78.0-98.0); Mean Platelet Volume 8.4 fL (7.4-10.4); Platelet Count 86 thou/uL (130-400); RBC Distribution Width 18.1 % (11.5-14.5); Red Blood Cell (RBC) Count 2.74 mill/uL (4.70-6.10); White Blood Cell (WBC) Count 7.2 thou/uL (4.8-10.8)
[2020-02-12 07:57] LABS: Anion Gap 10 mmol/L (10-20); BUN (Urea Nitrogen) 10 mg/dL (8.4-25.7); Calc. Creatinine Clearance 50 mL/min (70-130); Calcium 8.7 mg/dL (7.8-10.44); Carbon Dioxide 21 mmol/L (23-31); Chloride 112 mmol/L (98-107); Estimated GFR-MDRD 52; Glucose 78 mg/dL (83-110); Sodium 140 mmol/L (136-145)
[2020-02-12] MEDS: valACYclovir 500 MG TAB PO SCH (08:20)
[2020-02-12] MEDS: Folic Acid 1 MG TAB PO SCH (08:20)
[2020-02-12] MEDS: Famotidine 20 MG TAB PO SCH (08:20)
[2020-02-12] MEDS: Polyethylene Glycol 3350 17 GM Packet PO SCH (08:21)
[2020-02-12] MEDS ORDERED: Potassium Chloride 20 MEQ TAB PO SCH (08:30)
[2020-02-12] MEDS: Fluconazole 100 MG TAB PO SCH (08:44)
--- NOTE | 2020-02-12 14:51 | PDOC.MOPN ---
Interval History: feeling better. no fever in last 24 hours - Vital Signs Vital Signs: Vital Signs (12 hours) Temp Pulse Resp BP Pulse Ox 02/12/20 08:20 98.4 F 93 16 148/79 H 97 02/12/20 08:00 97 Weight Admit Weight 164 lb Weight 170 lb Most Recent Monitor Data Heart Rate from ECG 91 NIBP 103/55 NIBP BP-Mean 71 Respiration from ECG 31 SpO2 98 - Physical Exam General: Alert, Oriented x3, No acute distress HEENT: Atraumatic, PERRLA, EOMI, Mucous membr. moist/pink Lungs: Clear to auscultation, Normal air movement Cardiovascular: Regular rate, Normal S1, Normal S2, No murmurs, Gallops, Rubs Abdomen: Normal bowel sounds, Soft, No tenderness, No hepatospenomegaly, No masses Neurological: Normal speech - Labs Result Diagrams: 02/12/20 07:26 02/12/20 07:26 Lab results: Laboratory Results - last 24 hr 02/12/20 07:26: WBC 7.2, RBC 2.74 L, Hgb 8.2 L, Hct 24.8 L, MCV 90.5, MCH 30.0, MCHC 33.2, RDW 18.1 H, Plt Count 86 L, MPV 8.4, Neutrophils % 91.4 H, Lymphocytes % 1.2 L, Monocytes % 5.7, Eosinophils % 1.2, Basophils % 0.6, Neutrophils # 6.6 H, Lymphocytes # 0.1 L, Monocytes # 0.4, Eosinophils # 0.1, Basophils # 0.0 02/12/20 07:26: Sodium 140, Potassium 3.0 L, Chloride 112 H, Carbon Dioxide 21 L , Anion Gap 10, BUN 10, Creatinine 1.34 H, Estimated GFR (MDRD) 52, Glucose 78 L , Calcium 8.7 Status: lab reviewed by me A/P - Problem (1) UTI (urinary tract infection) Current Visit: Yes Status: Acute (2) T CELL LYMPH Current Visit: No Status: Acute - Plan Plan: no chemo planned on this visit continue abx per ID follow-up Dr. Izquierdo next week after MDA
[2020-02-12] MEDS: Rivaroxaban 10 MG TAB PO SCH (16:13)
--- NOTE | 2020-02-12 16:33 | PDOC.HOSPP ---
- Subjective Encounter Date: 02/12/20 Encounter Time: 16:29 Subjective: Mr. Boyd was seen today in follow-up of UTI with sepsis. He does not have any complaints this afternoon. - Objective Vital Signs & Weight: Vital Signs (12 hours) Temp Pulse Resp BP Pulse Ox 02/12/20 08:20 98.4 F 93 16 148/79 H 97 02/12/20 08:00 97 Weight Admit Weight 164 lb Weight 170 lb Most Recent Monitor Data Heart Rate from ECG 91 NIBP 103/55 NIBP BP-Mean 71 Respiration from ECG 31 SpO2 98 I&O: 02/11/20 02/12/20 02/13/20 06:59 06:59 06:59 Intake Total 3785 4625 Output Total 2350 2850 1925 Balance 1435 1775 -1925 Result Diagrams: 02/12/20 07:26 02/12/20 07:26 Hospitalist ROS - Medication Medications: Active Medications Generic Name Dose Route Start Last Admin Trade Name Freq PRN Reason Stop Dose Admin Acetaminophen 650 mg 02/08/20 22:30 02/10/20 20:45 Tylenol PO 650 mg Q4H PRN Administration Headache/Fever/Mild Pain (1-3) Allopurinol 200 mg 02/09/20 21:00 02/11/20 20:01 Zyloprim PO 200 mg QPM DANE Administration Famotidine 20 mg 02/09/20 09:00 02/12/20 08:20 Pepcid PO 20 mg DAILY DANE Administration Fluconazole 400 mg 02/09/20 09:00 02/12/20 08:44 Diflucan PO 400 mg DAILY DANE Administration Folic Acid 1 mg 02/09/20 09:00 02/12/20 08:20 Folvite PO 1 mg DAILY DANE Administration Sodium Chloride 1,000 mls @ 125 mls/hr 02/08/20 23:15 02/12/20 13:14 Normal Saline 0.9% IV 1,000 mls .Q8H DANE Administration Meropenem 1 gm/ Device 50 mls @ 200 mls/hr 02/11/20 14:00 02/12/20 14:24 IVPB 50 mls Q8HR DANE Administration Polyethylene Glycol 17 gm 02/09/20 09:00 02/12/20 08:21 Miralax PO Not Given DAILY DANE Rivaroxaban 20 mg 02/09/20 17:00 02/12/20 16:13 Xarelto PO 20 mg 1700 DANE Administration Sodium Chloride 10 ml 02/11/20 09:00 02/12/20 08:21 Flush - Normal Saline IVF 10 ml Q12HR DANE Administration Valacyclovir HCl 500 mg 02/09/20 09:00 02/12/20 08:20 Valtrex PO 500 mg DAILY DANE Administration - Exam Eye: PERRL, anicteric sclera Heart: RRR, no murmur, no gallops Respiratory: no wheezes, no rales, rhonchi Gastrointestinal: soft, non-tender, non-distended, normal bowel sounds Extremities: no cyanosis, no clubbing, 1+ LE edema Hosp A/P (1) UTI (urinary tract infection) Status: Acute (2) Sepsis Code(s): A41.9 - SEPSIS, UNSPECIFIED ORGANISM Status: Acute (3) T-cell lymphoma Code(s): C85.90 - NON-HODGKIN LYMPHOMA, UNSPECIFIED, UNSPECIFIED SITE Status: Acute (4) Acute kidney injury Code(s): N17.9 - ACUTE KIDNEY FAILURE, UNSPECIFIED Status: Acute - Plan * UTI and sepsis- urine culture- revealed E. Coli which has a Multi-drug resistant profile * He has been changed to meropenem. Discussed with Dr. Chacon, and he will need a total of 7 days of therapy. * I discussed the options with the patient and he would prefer to have outpatient IV antibiotics at the infusion center or cancer center. * T-cell Lymphoma- stable * [place]- improving * Anemia- stable
--- NOTE | 2020-02-12 17:58 | PRG ---
DATE OF SERVICE: 02/12/2020 SUBJECTIVE: Mr. Boyd says he is feeling fine. He denies any pain. OBJECTIVE: VITAL SIGNS: He is afebrile. Heart rate is 92, respiratory rate 16, oximetry is 97% on room air, blood pressure 148/79. LUNGS: Clear. HEART: Regular rhythm. ABDOMEN: Soft. LABORATORY DATA: No new positive cultures. White count 7.2, hemoglobin 8.2, platelets 86,000. Sodium 140, potassium 3, chloride 112, bicarb , BUN 10, creatinine 1.34. IMPRESSION AND PLAN: Clinical sepsis to presentation with intravascular volume depletion, likely being a coexisting factor. Blood cultures are negative. He has no complaints. He has no stones associated with urinary tract infection by CT. He does have progression of his lymphadenopathy. He was seen by me in followup for being in the ICU overnight. He appears to be stable at this point in time. We will follow from a distance. Job ID: [id number]
[2020-02-12] MEDS: Allopurinol 100 MG TAB PO SCH (21:10)
[2020-02-12] MEDS ORDERED: MEROPENEM 1 GM/50 ML 1 GM in Premix Bag 1 BAG IVPB SCH (22:00)
[2020-02-13] MEDS ORDERED: Meropenem 1 GM in Sodium Chloride 0.9% 100 ML IVPB SCH (06:00)
[2020-02-13] MEDS: valACYclovir 500 MG TAB PO SCH (08:46)
[2020-02-13] MEDS: Famotidine 20 MG TAB PO SCH (08:46)
[2020-02-13] MEDS: Polyethylene Glycol 3350 17 GM Packet PO SCH (08:46)
[2020-02-13] MEDS: Sodium Chloride 0.9% 1,000 ML IV SCH ×3 (08:46→21:57)
[2020-02-13] MEDS: Folic Acid 1 MG TAB PO SCH (08:48)
--- NOTE | 2020-02-13 10:03 | PDOC.MOPN ---
Interval History: feels good and appears ready to go home. - Vital Signs Vital Signs: Vital Signs (12 hours) Temp Pulse Resp BP Pulse Ox 02/13/20 07:44 97.6 F 93 18 141/75 H 96 Weight Admit Weight 164 lb Weight 171 lb Most Recent Monitor Data Heart Rate from ECG 91 NIBP 103/55 NIBP BP-Mean 71 Respiration from ECG 31 SpO2 98 - Physical Exam General: Alert, Oriented x3, No acute distress Lungs: Clear to auscultation, Normal air movement Cardiovascular: Regular rate, Normal S1, Normal S2, No murmurs, Gallops, Rubs Abdomen: Normal bowel sounds, Soft, No tenderness, No hepatospenomegaly, No masses Neurological: Normal speech - Labs Result Diagrams: 02/12/20 07:26 02/12/20 07:26 Status: lab reviewed by me A/P - Problem (1) UTI (urinary tract infection) Current Visit: Yes Status: Acute (2) T CELL LYMPH Current Visit: No Status: Acute - Plan Plan: no chemo planned on this visit continue abx per ID home from our perspective follow-up Dr. Izquierdo next week after MDA
[2020-02-13] MEDS: Fluconazole 100 MG TAB PO SCH (10:08)
[2020-02-13 10:25] LABS: Calcium 8.8 mg/dL (7.8-10.44); Chloride 110 mmol/L (98-107); Sodium 141 mmol/L (136-145)
[2020-02-13 10:26] LABS: Glucose 104 mg/dL (83-110)
[2020-02-13 10:27] LABS: Anion Gap 13 mmol/L (10-20); Carbon Dioxide 21 mmol/L (23-31)
[2020-02-13 10:29] LABS: Calc. Creatinine Clearance 60 mL/min (70-130); Estimated GFR-MDRD 62
[2020-02-13 10:30] LABS: BUN (Urea Nitrogen) 7 mg/dL (8.4-25.7)
[2020-02-13 10:34] LABS: Potassium 2.9 mmol/L (3.5-5.1)
[2020-02-13] MEDS: Potassium Chloride 20 MEQ TAB PO SCH ×2 (13:52→16:05)
[2020-02-13] MEDS: MEROPENEM 1 GM/50 ML 1 GM in Premix Bag 1 BAG IVPB SCH ×2 (14:12→21:55)
--- NOTE | 2020-02-13 15:34 | PDOC.HOSPP ---
- Subjective Encounter Date: 02/13/20 Encounter Time: 15:33 Subjective: Mr. Boyd was seen today in follow-up of UTI and sepsis. He does nots a little oozing of blood from his nose. He says this started after he was given the COVID swab. He also notes a little loose stools. - Objective Vital Signs & Weight: Vital Signs (12 hours) Temp Pulse Resp BP Pulse Ox 02/13/20 07:44 97.6 F 93 18 141/75 H 96 Weight Admit Weight 164 lb Weight 171 lb Most Recent Monitor Data Heart Rate from ECG 91 NIBP 103/55 NIBP BP-Mean 71 Respiration from ECG 31 SpO2 98 I&O: 02/12/20 02/13/20 02/14/20 06:59 06:59 06:59 Intake Total 4625 3650 Output Total 2850 4125 Balance 1775 -741 Result Diagrams: 02/12/20 07:26 02/13/20 09:20 Hospitalist ROS - Medication Medications: Active Medications Generic Name Dose Route Start Last Admin Trade Name Freq PRN Reason Stop Dose Admin Acetaminophen 650 mg 02/08/20 22:30 02/10/20 20:45 Tylenol PO 650 mg Q4H PRN Administration Headache/Fever/Mild Pain (1-3) Allopurinol 200 mg 02/09/20 21:00 02/12/20 21:10 Zyloprim PO 200 mg QPM DANE Administration Famotidine 20 mg 02/09/20 09:00 02/13/20 08:46 Pepcid PO 20 mg DAILY DANE Administration Fluconazole 400 mg 02/09/20 09:00 02/13/20 10:08 Diflucan PO 400 mg DAILY ADNE Administration Folic Acid 1 mg 02/09/20 09:00 02/13/20 08:48 Folvite PO 1 mg DAILY DANE Administration Sodium Chloride 1,000 mls @ 125 mls/hr 02/08/20 23:15 02/13/20 14:09 Normal Saline 0.9% IV 1,000 mls .Q8H DANE Administration Meropenem 1 gm/ Device 50 mls @ 100 mls/hr 02/13/20 14:00 02/13/20 14:12 IVPB 50 mls Q8HR DANE Administration Polyethylene Glycol 17 gm 02/09/20 09:00 08/05/20 08:46 Miralax PO 17 gm DAILY DANE Administration Potassium Chloride 40 meq 02/13/20 13:00 02/13/20 13:52 K-Dur PO 02/13/20 17:01 40 meq Q4H DANE Administration Rivaroxaban 20 mg 02/09/20 17:00 02/12/20 16:13 Xarelto PO 20 mg 1700 DANE Administration Sodium Chloride 10 ml 02/11/20 09:00 02/13/20 10:09 Flush - Normal Saline IVF 10 ml Q12HR DANE Administration Valacyclovir HCl 500 mg 02/09/20 09:00 02/13/20 08:46 Valtrex PO 500 mg DAILY DANE Administration - Exam Eye: PERRL, anicteric sclera Heart: RRR, no gallops, no rubs, III/IV Respiratory: CTAB, no wheezes, no rales, no ronchi, normal chest expansion Gastrointestinal: soft, non-tender, non-distended, normal bowel sounds, no palpable masses Extremities: no cyanosis Hosp A/P (1) UTI (urinary tract infection) Status: Acute (2) Sepsis Code(s): A41.9 - SEPSIS, UNSPECIFIED ORGANISM Status: Acute (3) T-cell lymphoma Code(s): C85.90 - NON-HODGKIN LYMPHOMA, UNSPECIFIED, UNSPECIFIED SITE Status: Acute (4) Acute kidney injury Code(s): N17.9 - ACUTE KIDNEY FAILURE, UNSPECIFIED Status: Acute - Plan * UTI and sepsis- urine culture- Outpatient Meropenem has been arranged * He can be discharged if his potassium level is better * Epistaxis- mild- Afrin -as needed * [place]- improving * Anemia- stable
[2020-02-13] MEDS: Rivaroxaban 10 MG TAB PO SCH (16:05)
[2020-02-13] MEDS ORDERED: Oxymetazoline HCl 0.05% (30 ML BOT) NS PRN (19:02)
[2020-02-13] MEDS: Allopurinol 100 MG TAB PO SCH (20:06)
[2020-02-13] MEDS: Magnesium Oxide 400 MG TAB PO SCH (20:06)
[2020-02-13] MEDS ORDERED: Potassium Chloride 20 MEQ TAB PO SCH (22:00)
[2020-02-13] MEDS ORDERED: Sodium Chloride 0.65% Nasal 44 ML BOT EA NARE PRN (22:12)
[2020-02-13] MEDS ORDERED: diphenhydrAMINE 25 MG CAP PO SCH (22:15)
[2020-02-14] MEDS: MEROPENEM 1 GM/50 ML 1 GM in Premix Bag 1 BAG IVPB SCH (05:50)
[2020-02-14 06:27] LABS: Anion Gap 11 mmol/L (10-20); BUN (Urea Nitrogen) 7 mg/dL (8.4-25.7); Calc. Creatinine Clearance 67 mL/min (70-130); Calcium 8.4 mg/dL (7.8-10.44); Carbon Dioxide 20 mmol/L (23-31); Chloride 111 mmol/L (98-107); Estimated GFR-MDRD 70; Glucose 81 mg/dL (83-110); Potassium 3.4 mmol/L (3.5-5.1); Sodium 139 mmol/L (136-145)
[2020-02-14] MEDS ORDERED: Potassium Chloride 20 MEQ TAB PO SCH (07:30)
[2020-02-14 08:34] VITALS: BP 140/72; TEMP 98.4
[2020-02-14] MEDS: Folic Acid 1 MG TAB PO SCH (09:22)
[2020-02-14] MEDS: Famotidine 20 MG TAB PO SCH (09:24)
[2020-02-14] MEDS: Magnesium Oxide 400 MG TAB PO SCH (09:24)
[2020-02-14] MEDS: Fluconazole 100 MG TAB PO SCH (09:25)
[2020-02-14] MEDS: valACYclovir 500 MG TAB PO SCH (09:25)
[2020-02-14] MEDS: Polyethylene Glycol 3350 17 GM Packet PO SCH (09:26)
--- NOTE | 2020-02-14 23:45 | DIS ---
DATE OF ADMISSION: 02/08/2020 DATE OF DISCHARGE: 02/14/2020 PRIMARY CARE PHYSICIAN: The patient does not have a primary care physician. DISCHARGE DIAGNOSES: 1. Urinary tract infection. 2. Sepsis secondary to urinary tract infection. 3. T-cell lymphoma. 4. Acute kidney injury, improved. 5. Hypokalemia, resolved. 6. Hypomagnesemia, resolved. DISCHARGE MEDICATIONS: Include; 1. IV Invanz, which has been arranged by Dr. Chacon and Case Management, which he will be receiving at the Infusion Center. 2. Continue valacyclovir 500 mg daily. 3. Xarelto 20 mg daily. 4. Potassium chloride 20 mEq p.o. daily. 5. Toprol-XL 50 mg p.o. daily. 6. Magnesium oxide 400 mg twice daily. 7. Lisinopril 20 mg twice a day. 8. Folic acid 1 mg daily. 9. Fluconazole 400 mg p.o. daily. 10. Allopurinol 200 mg daily. IMAGING DONE DURING THE HOSPITAL STAY: The patient had a renal ultrasound, which was significant for no evidence of hydronephrosis. There was no evidence of any solid mass. The patient had a CT scan of the abdomen and pelvis, in which there were numerous bilateral renal lesions, which appear to be stable and there was progression of the retroperitoneal iliac chain adenopathy and there was prominent adenopathy and mass in the right retroperitoneal, which was obscuring the right psoas muscle. HOSPITAL COURSE: Mr. Boyd is a pleasant 79-year-old gentleman, who was admitted to the hospital with urinary tract infection with sepsis. He was initially extremely weak and was having fever and chills as well as some dyspnea. He had a COVID screen, which was negative and it was discovered that he actually had a urinary tract infection as a cause of his symptoms. He was started on broad-spectrum antibiotics. Urine culture was obtained and eventually grew E. coli, which had a multidrug resistant profile. Due to this, ID was consulted. He was transitioned to meropenem and renal ultrasound as well as CT scan of the abdomen was done to rule out obstruction or any other potential causes of infection. These tests were essentially negative. The patient improved over the course of the next couple of days. His hospital stay was complicated by hypokalemia as well as hypomagnesemia, which was replaced. Once he was clinically stable and his potassium had been replaced, he was able to be discharged home and to receive the remaining doses of the IV Invanz in the outpatient setting. Job ID: [id number]
== END 2020-02-14 13:59 | disposition home health service (06) | DRG 871 ==
LOC: ERS 16:35 → ERHOLD 19:50 → CCU 23:32 → ONC 02-09 11:44
PROVIDERS: ADMIT Internal Medicine; ATTEND Internal Medicine
DX: A41.51 Sepsis due to Escherichia coli [E. coli] (principal); D61.810 Antineoplastic chemotherapy induced pancytopenia; R65.21 Severe sepsis with septic shock; N39.0 Urinary tract infection, site not specified; E87.1 Hypo-osmolality and hyponatremia; N17.9 Acute kidney failure, unspecified; C85.90 Non-Hodgkin lymphoma, unspecified, unspecified site; Z16.35 Resistance to multiple antimicrobial drugs; Z20.828 Contact with and (suspected) exposure to other viral communicable diseases; T45.1X5A Adverse effect of antineoplastic and immunosuppressive drugs, initial encounter; E78.5 Hyperlipidemia, unspecified; I10 Essential (primary) hypertension; E83.52 Hypercalcemia; I48.91 Unspecified atrial fibrillation; E78.00 Pure hypercholesterolemia, unspecified; R04.0 Epistaxis; E87.6 Hypokalemia; E83.42 Hypomagnesemia; Z79.01 Long term (current) use of anticoagulants; Z90.49 Acquired absence of other specified parts of digestive tract; Z79.899 Other long term (current) drug therapy
CPT/HCPCS: 36415; 36416; 36430; 36556; 71045; 74176; 76770; 80048; 80053; 81003; 81015; 82274; 82553; 83605; 83735; 84484; 85025; 86850; 86900; 86901; 87040; 87077; 87086; 87186; 93005; 96361; 96365; 96366; 96367; J0692; J2185; J2543; J3370; J3475; J3490; J7050; P9016; Q0163; U0002